=== PATIENT | female | born 1935 | race Caucasian/White ===

== ENCOUNTER 2019-10-18 13:01 | Outpatient (CLI) | payer MEDICARE, SELFPAY ==
--- NOTE | ~2019-10-18 | MM_ITS ---
EXAMINATION: MM screening taylor BI w artem HISTORY: Screening mammogram TECHNIQUE: Craniocaudal and mediolateral oblique 3-D tomosynthesis images were obtained and synthetic 2-D images were generated. CAD analysis was submitted and interpreted. COMPARISON: 09/14/2018, 08/24/2017, 08/24/2016 bilateral digital screening mammogram diagnostic right digital BREAST PARENCHYMAL COMPOSITION: There are scattered areas of fibroglandular density. FINDINGS: Status post right partial mastectomy for breast cancer; chronic architectural distortion is noted deep in the posterior outer mid to upper right breast. Scattered benign calcifications.. There is no evidence of suspicious mass, calcification, or architectural distortion to suggest malignancy in either breast. There has been no suspicious interval change. IMPRESSION: 1. No mammographic evidence of malignancy. 2. Recommend routine screening mammography in one year. BI-RADS Category 2: Benign finding(s). Reviewed, dictated and finalized at location A.
== END 2019-10-18 13:02 | disposition home or self-care (01) ==
LOC: ANHIMG 13:06
PROVIDERS: PCP Family Medicine; Visit Provider Family Medicine
DX: Z12.31 Encounter for screening mammogram for malignant neoplasm of breast (principal)
CPT/HCPCS: 77063; 77067

== ENCOUNTER → 2019-12-06 13:17 | Outpatient (CLI) | payer MEDICARE, SELFPAY ==
--- NOTE | ~2019-12-06 | DEXA_ITS ---
Bone Density Report Name: Monie Zamora Age: 84 Sex: Female Ethnicity: White Date of : 1935 Indication: postmenopausal; screening for osteoporosis; height loss; Referring Provider: ERASMO GLOVER Study: Bone densitometry was performed. Exam Date: December 06, 2019 Accession number: [id number] Bone Density: Region BMD T-score Z-score Classification AP Spine (L1-L4) 1.151 0.9 3.8 Normal Femoral Neck (Left) 0.665 -1.7 0.9 Osteopenia Total Hip (Left) 0.840 -0.8 1.5 Normal Femoral Neck (Right) 0.670 -1.6 0.9 Osteopenia Total Hip (Right) 0.775 -1.4 1.0 Osteopenia Total Hip Mean 0.808 -1.1 1.3 Osteopenia World Health Organization criteria for BMD impression classify patients as: Normal (T-score at or above -1.0), Osteopenia (T-score between -1.0 and -2.5), or Osteoporosis (T-score at or below -2.5). 10-year Fracture Risk(1): Major Osteoporotic Fracture 13% Hip Fracture 3.6% Reported Risk Factors: [place] (), Neck BMD=0.670, BMI=31.6 (1) FRAX(R) Version 3.08. Fracture probability calculated for an untreated patient. Fracture probability may be lower if the patient has received treatment. Clinical Information Provided by Patient: Has used the following medications: Vitamin D, Calcium, Anastrozole Patient maximum height was 66 Menopause Age: 56 No regular weight bearing exercise Does not regularly consume dairy products Drinks caffeinated beverages Onset of menses at age 13 Number of children 2 Impression: The patient has low bone mass, based on the Left Femoral Neck T-score. The patient has an estimated ten-year risk of hip fracture of 3.6% and an estimated ten-year risk of major fracture of 13%, based on the WHO FRAX algorithm. Discussion: BONE DENSITY IS LOW AT ONE OR MORE SKELETAL SITES. THE PATIENT'S BMD AND CLINICAL RISK FACTORS CONTRIBUTE TO THIS PATIENT'S INCREASED RISK OF FRACTURE. This patient's lowest T-score is low at one or more skeletal sites. It meets the World Health Organization's (WHO) criteria for ?low bone mass? (T-score between -1.0 and -2.5). The patient's 10-year risk of hip fracture as calculated by FRAX exceeds the threshold where pharmacological therapy is recommended by the National Osteoporosis Foundation (NOF). However, all treatment decisions require clinical judgment and consideration of individual patient factors, including patient preferences, comorbidities, previous drug use, risk factors not captured in the FRAX model (e.g., frailty, falls, vitamin D deficiency, increased bone turnover, interval significant decline in bone density) and possible under or overestimation of fracture risk by FRAX. The patient should follow a healthful lifestyle (good nutrition with adequate calcium and vitamin D, and appropriate weight-bearing exercise).
== END ==
PROVIDERS: PCP Family Medicine; Visit Provider Internal Medicine Medical Oncology
DX: D05.11 Intraductal carcinoma in situ of right breast (principal); Z79.811 Long term (current) use of aromatase inhibitors; M85.852 Other specified disorders of bone density and structure, left thigh; M85.851 Other specified disorders of bone density and structure, right thigh
CPT/HCPCS: 77080

== ENCOUNTER 2020-02-02 06:58 | Outpatient (NON) | payer MEDICARE, SELFPAY ==
[2020-02-03 00:37] LABS: SARS-CoV-2 RNA PCR Positive
== END 2020-02-02 06:59 ==
PROVIDERS: PCP Family Medicine; Visit Provider Family Medicine
DX: U07.1 COVID-19 (principal)
CPT/HCPCS: 87635; C9803; U0003

== ENCOUNTER 2020-02-07 14:49 | Inpatient (IN) | payer MEDICARE, SELFPAY ==
[2020-02-07] VITALS (17 sets, daily range): BP systolic 116–142; BP diastolic 52–94; PULSE 62–77; RESP 9–24; TEMP 36.8–38.6; O2SAT 90–99; BMI 28.4
--- NOTE | ~2020-02-07 | CT_ITS ---
EXAMINATION: CTA chest PE protocol EXAM DATE: 02/13/2020 21:10 INDICATION: COVID-19. Hypoxia. Elevated d-dimer. TECHNIQUE: Spiral CTA of the chest (pulmonary arteries) was performed with 100 cc Omnipaque 350 intr avenous contrast injection. Images were acquired during the pulmonary arterial phase. Coronal maxi mum intensity projection 3D-reconstructions were created by the technologist on dedicated workstation . Axial, coronal and sagittal reformatted images were reviewed. The dose-length product (DLP) for t his examination was 500.33 mGy-cm. The exposure was tailored according to patient size (auto mA exp osure control), and iterative reconstruction (ASIR) was used as additional dose reduction technique. There is no prior study for comparison. FINDINGS: There are several segmental pulmonary emboli identified, in the right upper lobe, right low er lobe, left upper lobe pulmonary arteries. Low clot burden. There is moderate amount of groundglass airspace disease with regions of confluence, probably acute lung injury from COVID-19 given history provided. Some reactive right hilar adenopathy. No thoracic aortic dissection. There are no pleural or pericardial effusions. Tracheobronchial tree is patent. There is no pneumothorax. There is mild coronary arterial calcification, arterial sclerosis. There is large hernia containing the stoma ch and pancreatic body and tail. There is thoracic spondylosis without osteoblastic or osteolytic le sions identified. IMPRESSION: 1. Several segmental pulmonary emboli bilaterally. Low clot burden. 2. Moderate amount of acute lung injury. 3. Intrathoracic stomach and pancreas. I discussed pulmonary emboli, acute lung injury with Dr. Manuel at 02/13/2020 21:25 CDT. Reviewed, dictated and finalized at location A. IMPRESSION: 1. Several segmental pulmonary emboli bilaterally. Low clot burden. 2. Moderate amount of acute lung injury. 3. Intrathoracic stomach and pancreas. I discussed pulmonary emboli, acute lung injury with Dr. Manuel at 02/13/2020 21:2 5 CDT.
--- NOTE | ~2020-02-07 | US_ITS ---
EXAMINATION: US venous doppler [facility] DATE: 02/14/2020 10:56 INDICATION: Lower limb swelling, hypoxia TECHNIQUE: Doran scale images without and with compression and Doppler images of the bilateral lower e xtremity veins were obtained. COMPARISON: None FINDINGS: The right common femoral vein, profunda femoral vein, femoral vein, popliteal vein, peroneal trunk, p osterior tibial veins, and greater saphenous vein are patent. The left common femoral vein, profunda femoral vein, femoral vein, popliteal vein, peroneal trunk, po sterior tibial veins, and greater saphenous vein are patent. A 4.6 cm Casper cyst is noted in the left popliteal fossa. IMPRESSION: 1. Patent bilateral lower extremity veins. No evidence of deep venous thrombosis. Reviewed, dictated and finalized at location B. IMPRESSION: 1. Patent bilateral lower extremity veins. No evidence of deep venous thrombosi s.
--- NOTE | ~2020-02-07 | XR_ITS ---
EXAMINATION: XR chest 1V portable DATE: 02/07/2020 15:18 INDICATION: Cough. COVID-19 pneumonia. TECHNIQUE: A single frontal view of the chest was obtained. COMPARISON: Chest 2 views 03/04/2018 FINDINGS: There are patchy airspace opacities involving all lung zones with sparing of the lung apice s. No pleural effusion or pneumothorax. The heart size is normal. There is a large hiatal hernia. Magdy cified bilateral hilar lymph nodes are consistent with old granulomatous disease. IMPRESSION: 1. Diffuse lung disease, consistent with COVID-19 pneumonia. 2. Large hiatal hernia. Reviewed, dictated and finalized at location A.
--- NOTE | 2020-02-07 14:56 | ECG_ITS ---
Measurements Intervals Gilbert Rate: 74 P: 30 OH: 177 QRS: -62 QRSD: 102 T: -29 QT: 392 QTc: 437 Interpretive Statements SINUS RHYTHM LEFT ANTERIOR FASCICULAR BLOCK POOR R WAVE PROGRESSION, ANTERIOR LEADS BORDERLINE T WAVE ABNORMALITY- ANT/INF LEADS BASELINE ARTIFACT- II, III, V1-V3, V6 ABNORMAL ECG Electronically Signed On 02-07-2020 16:35:25 CDT by Kevin Rodriguez D.O.
--- NOTE | 2020-02-07 15:31 | ED.SOB ---
HPI - SOB/Dyspnea General Chief Complaint: Shortness of Breath/Dyspnea Stated Complaint: DIFFICULTY BREATHING Source: RN notes reviewed History of Present Illness HPI Narrative: Patient presents emergency department from home for shortness of breath. Patient states she began to feel bad approximately 14 days ago. Patient was tested for COVID on 02/02/2020 with a positive test at that time. Patient states she began to feel progressively more short of breath and when EMS arrived a patient was satting 88% on room air currently on 4 L nasal cannula. Patient does have a fever states she is not taking medication today. Denies any chest pain abdominal pain nausea vomiting Related Data Home Medications Medication Instructions Recorded Confirmed anastrozole mg 02/07/20 Allergies Allergy/AdvReac Type Severity Reaction Status Date / Time nickel Allergy Mild itchiness Verified 01/10/20 14:02 Review of Systems Review of Systems: Narrative: Gen.: Reports fever denies chills Eyes: Denies eye pain or visual change ENT: Denies congestion Respiratory: Reports shortness of breath CV: Denies chest pain or palpitations GI: Denies abdominal pain nausea, emesis or diarrhea Musculoskeletal: Denies back pain or muscle pain Neuro: Denies numbness, tingling, weakness or focal weakness Skin: Denies rash Except as documented, all other systems reviewed and negative [facility] Past Medical History Medical History Breast cancer Elevated glucose Essential hypertension Surgical History Surgical History (Updated 10/02/19 @ 14:52 by Julieta Pérez MD) H/O lumpectomy Family History Family History (Updated 02/21/16 @ 15:50 by DOCTOR UNKNOWN) Mother Patient's mother is in good health, Onset Age: 23 Father Family history of emphysema, Onset Age: 84 Social History Social History Smoking status: Never smoker Second hand tobacco smoke exposure: No Alcohol intake: never Gender identity (if verbalized by the patient): Female Exam Narrative: Exam Narrative: APPEARANCE: No acute distress, nontoxic, resting in bed EYES: EOMI HEENT: Normocephalic, atraumatic, OMM RESPIRATORY: No respiratory distress C coarse breath sounds at bilateral lung vivas CARDIOVASCULAR: Regular rate and rhythm without murmurs rubs or gallops. ABDOMINAL: Soft, nontender, nondistended, no rebound or guarding MUSCULOSKELETAl: Moves all extremities. No clubbing, cyanosis or edema. NEURO: Awake and alert. Following commands, speech normal, no focal deficits SKIN:: Warm, dry. No rashes lesions or abrasions PSYCHIATRIC: Normal affect/mood, Course Course Emergency Course: Reviewed outside records showing positive cocaine test Discussed with FELI Ward for Dr. Lewis presentation work-up. Agrees with admission at this time. Request patient receive Decadron 6 mg IV x1 at this time. Request no antibiotics Discussed with patient and family results of workup and diagnosis. Discussed need for admission. Patient and family understand and agree to current treatment plan Vital Signs Vital signs: Vital Signs Temperature 101.5 F H 02/07/20 14:58 Pulse Rate 77 02/07/20 14:58 Respiratory Rate 24 H 02/07/20 14:58 Blood Pressure 133/69 02/07/20 14:58 Pulse Oximetry 90 02/07/20 14:58 Temperature 99.7 F H 02/07/20 15:52 Pulse Rate 75 02/07/20 16:30 Respiratory Rate 17 02/07/20 16:30 Blood Pressure 116/52 L 02/07/20 16:16 Pulse Oximetry 96 02/07/20 16:16 MDM - SOB/Dyspnea Lab Data Result diagrams: 02/07/20 15:27 02/07/20 15:27 Labs: Lab Results 02/07/20 02/07/20 02/07/20 Range/Units 15:27 15:27 15:27 WBC 6.7 (4.5-10.0) K/mm3 RBC 4.29 (4.2-5.4) M/mm3 Hgb 12.7 (12.0-15.0) g/dL Hct 35.9 L (37.0-47.0) % MCV 83.7 (80-100) fl MCH 29.6 (26-34) pg MCHC 35.4
[2020-02-07 15:45] LABS: Basophils Percent Auto 0.2 % (0.2-1.2); Hematocrit 35.9 % (37.0-47.0); Hemoglobin 12.7 g/dL (12.0-15.0); Immature Granulocyte Absolute 0.05 K/mm3 (0.00-0.031); Immature Granulocyte Percent A 0.8 % (0-0.5); Lymphocytes Absolute Auto 0.51 K/mm3 (0.9-3.2); Lymphocytes Percent Auto 7.7 % (18.3-44.2); Mean Corpuscular HGB Conc 35.4 g/dl (32-36); Mean Corpuscular Hemoglobin 29.6 pg (26-34); Mean Corpuscular Volume 83.7 fl (80-100); Mean Platelet Volume 11.3 fl (7.4-10.4); Monocytes Absolute Auto 0.4 K/mm3 (0.1-0.6); Monocytes Percent Auto 5.7 % (2.6-8.5); Neutrophils Absolute Auto 5.7 K/mm3 (1.3-6.7); Neutrophils Percent Auto 85.6 % (45.5-73.1); Platelet Count Result 178 k/mm3 (150-375); Red Blood Count 4.29 M/mm3 (4.2-5.4); Red Cell Distribution Width 12.8 % (11.5-14.5); White Blood Count 6.7 K/mm3 (4.5-10.0)
[2020-02-07 15:55] LABS: INR 1.2; Prothrombin Time 15.1 Seconds (11.1-14.7)
[2020-02-07 15:56] LABS: Alanine Aminotransferase 18 U/L (4-35); Albumin Level 3.6 g/dL (3.5-5.1); Alkaline Phosphatase 62 U/L (38-126); Anion Gap 11 mmol/L (8-16); Aspartate Amino Transferase 30 U/L (14-36); Bilirubin,Total 1.7 mg/dL (0.2-1.3); Blood Urea Nitrogen 16 mg/dL (7-17); Calcium 9.3 mg/dL (8.4-10.2); Carbon Dioxide 23 mmol/L (22-30); Chloride 98 mmol/L (98-107); Estimated CRCL calculation 53 ml/min; Estimated Glomerular Filt Rate > 60; Glucose 110 mg/dL (65-105); Partial Thromboplastin Time 30.9 SECONDS (22.3-36.8); Potassium 3.4 mmol/L (3.4-5.0); Sodium 132 mmol/L (137-145)
--- NOTE | 2020-02-07 18:06 | PC.NURSE ---
Continue to await bed assignment to accommodate pt and spouse, whom are both being admitted. Attempt to make the patient comfortable.
--- NOTE | 2020-02-07 19:24 | PC.NURSE ---
Report to PAM Ricks, to continue care. Bed assignment received, SBAR faxed to 3rd med surg.
--- NOTE | 2020-02-07 20:14 | ADMGEN ---
This patient, Monie Zamora, was admitted to [facility] Surg Room 329-01. Patient/family oriented to hospital policies and general routines including ID bracelet, bed and alarms, visiting hours, pain management, procedures, bathroom and other care routines, personal items, smoking policy, room service/diet, and visiting hours. Valuables list has been completed. Information on how to activate the Rapid Response Team has been discussed. Patient/Family are encouraged to report perceived risks to care and to ask questions if they do not understand what they are told or what they should do.
--- NOTE | 2020-02-07 21:42 | PM.IMHP ---
H&P: HPI History of Present Illness Date/Time: 02/07/20 21:42 Chief complaint: Acute respiratory failure, hypoxia, COVID Narrative: Monie Zamora is a 84 year old female Who has been feeling ill for at least 14 days. Her son-in-law was feeling ill and was tested for COVID here and was positive. She and her daughter also went to get tested soon after that and she tested positive on the 01 of February. The patient stated she has been coughing and feeling weak. She has no appetite. She has been running a fever. Her temperature is are usually 101-102. She has body aches. Loss of taste loss of smell. Patient has been short of breath. Her chest x-ray was read as diffuse lung disease consistent with COVID-19 pneumonia. Large hiatal hernia . Liver enzymes are within normal limits. Renal functions are within normal limits. Patient was placed on 4 L per nasal cannula. She is not typically on oxygen. Upon arrival the patient was saturating 88%. This was on room air. She has not been taking any medications today. She denies any vomiting or nausea. She attempted to eat a sandwich in was unable to eat. She does have a history of hypertension. Patient was given Tylenol IV in the emergency room and Decadron. Patient was placed in COVID isolation room. Date of service 02/07/2020 Review of Systems Review of Systems: All systems reviewed & are unremarkable except as noted in HPI and below Constitutional: Constitutional: Reports as per HPI and Reports no additional constitutional complaints Eyes: Eyes: Reports as per HPI and Reports no additional eye complaints ENT: Reports system reviewed and no additional complaints, except as documented and Reports Normal hearing present Cardiovascular: Cardiovascular: Reports no additional cardiovascular complaints Respiratory: Respiratory: Reports no additional respiratory complaints and Reports no additional respiratory complaints Gastrointestinal: Gastrointestinal: Reports as per HPI and Reports no additional gastrointestinal complaints Musculoskeletal: Musculoskeletal: Reports no additional musculoskeletal complaints Integumentary/Breasts: Skin/Breast: Reports system reviewed and no additional complaints, except as docu and Reports as per HPI Neurologic: Reports system reviewed and no additional complaints, except as documented, Reports as per HPI and Reports Normal hearing present Psychiatric: Psychiatric: Reports no additional psychiatric complaints and Reports as per HPI Endocrine: Endocrine: Reports no additional endocrine complaints Hematologic/Lymphatic: Hematologic/Lymphatic: Reports no additional hematologic/lymphatic complaints Allergic/Immunologic: Allergic/Immunologic: Reports no additional allergic/immunologic complaints [facility] Past Medical History Medical History (Updated 02/07/20 @ 21:48 by Sylvia Dey NP) Breast cancer status post lumpectomy no chemo but had radiation. Elevated glucose Essential hypertension Osteopenia Surgical History Surgical History (Updated 02/07/20 @ 21:46 by Sylvia Dey NP) Cataract extraction status bilaterally H/O lumpectomy Family History Family History Mother Appendicitis due to appendicitis and her 20 Father Family history of emphysema, Onset Age: 84 Social History Social History (Updated 02/07/20 @ 21:50 by Sylvia Dey NP) Social History: the patient worked in a [employer] in various jobs. She is and lives with her . Her was her durable power roughener but he is sick as well and she would like for her 2 children to be the durable power roughener for healthcare. We had a long discussion about living will. She is agreeable to CPR and short-term ventilator but does not want to live in a vegetative state On a ventilator. She has the 2 children. She said she tried smoking in the past when she was a kid but did not l
[2020-02-07 22:17] LABS: Alanine Aminotransferase 19 U/L (4-35)
[2020-02-07] MEDS: REMDESIVIR 200 MG/NS 250 ML 200 MG/250 ML BAG 250 MG IVPB (22:33)
[2020-02-08] VITALS (10 sets, daily range): BP systolic 108–147; BP diastolic 51–82; PULSE 62–72; RESP 18; TEMP 36.4–38.8; O2SAT 91–98
--- NOTE | 2020-02-08 04:40 | PHAR ---
Remdesevir - All criteria were met except for initiation of therapy should begin within 10 days or less of symptom onset In the note from Dr. Pérze the patient stated they started feeling bad 14 days ago. After discussion with Sylvia Dey, the exact date was not known and she decided to go ahead and initiate therapy because the patient met all other criteria.
[2020-02-08 06:48] LABS: Hematocrit 38.1 % (37.0-47.0); Hemoglobin 12.9 g/dL (12.0-15.0); Immature Granulocyte Absolute 0.02 K/mm3 (0.00-0.031); Immature Granulocyte Percent A 0.6 % (0-0.5); Lymphocytes Absolute Auto 0.35 K/mm3 (0.9-3.2); Lymphocytes Percent Auto 9.6 % (18.3-44.2); Mean Corpuscular HGB Conc 33.9 g/dl (32-36); Mean Corpuscular Hemoglobin 28.7 pg (26-34); Mean Corpuscular Volume 84.9 fl (80-100); Mean Platelet Volume 11.3 fl (7.4-10.4); Monocytes Absolute Auto 0.2 K/mm3 (0.1-0.6); Monocytes Percent Auto 6.1 % (2.6-8.5); Neutrophils Percent Auto 83.7 % (45.5-73.1); Platelet Count Result 188 k/mm3 (150-375); Red Blood Count 4.49 M/mm3 (4.2-5.4); Red Cell Distribution Width 12.9 % (11.5-14.5); White Blood Count 3.6 K/mm3 (4.5-10.0)
[2020-02-08 06:54] LABS: Alanine Aminotransferase 21 U/L (4-35)
[2020-02-08 07:01] LABS: Lactic Acid Reflex 1.3 mmol/L (0.7-2.1)
[2020-02-08 07:13] LABS: Alanine Aminotransferase 21 U/L (4-35); Albumin Level 3.5 g/dL (3.5-5.1); Alkaline Phosphatase 66 U/L (38-126); Anion Gap 7 mmol/L (8-16); Aspartate Amino Transferase 32 U/L (14-36); Bilirubin,Total 0.8 mg/dL (0.2-1.3); Blood Urea Nitrogen 19 mg/dL (7-17); Calcium 9.4 mg/dL (8.4-10.2); Carbon Dioxide 27 mmol/L (22-30); Chloride 101 mmol/L (98-107); Estimated CRCL calculation 52 ml/min; Estimated Glomerular Filt Rate > 60; Glucose 137 mg/dL (65-105); Magnesium 2.1 mg/dL (1.6-2.3); Sodium 135 mmol/L (137-145)
[2020-02-08 07:18] LABS: Potassium 3.5 mmol/L (3.4-5.0)
[2020-02-08 07:39] LABS: Thyroid Stimulating Hormone Reflex 0.886 uIU/mL (0.465-4.68)
[2020-02-08 07:40] LABS: CRP 23.9 mg/dL (<1.0)
[2020-02-08] MEDS: ANASTROZOLE (*CHEMO) 1 MG TABLET PO (09:43)
[2020-02-08] MEDS: LABETALOL HCL 100 MG TABLET PO ×2 (09:46→16:51)
--- NOTE | 2020-02-08 12:52 | PM.IMPN ---
Progress Note: A&P Assessment and Plan (1) COVID-19: Code(s): U07.1 - COVID-19 Status: Acute Assessment and Plan: Continue symptomatic relief. tylenol for fever, Decadron. Remdesivir and oxygen 3 L per nasal cannula. to keep sats above 90% CXR yesterday shows diffuse lung disease consistent with COVID-19 pneumonia. (2) Essential hypertension: Code(s): I10 - Essential (primary) hypertension Status: Acute Assessment and Plan: Labetalol BID . (3) Breast cancer: Code(s): C50.919 - Malignant neoplasm of unspecified site of unspecified female breast Status: Acute Assessment and Plan: Anastrozole. Subjective Date/time seen: 02/08/20 12:52 Interval history: 84 year old female who has been feeling ill for at least 14 days. Got tested last wednesday and was told she was positive on wednesday. Pt feels slightly better, less fever less body aches. Ongoing cough ongoing tiredness. Pt was able to eat all her breakfast today. PT has history of breast cancer and lumpectomy. Pt is still needing oxygen and is currently on 3 liters and sats are 91%. CXR yesterday shows diffuse lung disease consistent with COVID-19 pneumonia. Pt daughter is positive and son in law. Pts is admitted to the hospital as well with covid like symptoms. Explained to the patient that she should recover 14 days after day of testing which is @ next , worse situation if she is still having symptoms SOB, cough fever etc she may need retesting. Talked to pts daughter Moraima on the phone and discussed about her mom. Review of Systems Review of Systems: Narrative: Cough, sob tiredness body aches, low grade fever and sweats Exam Narrative: Exam Narrative: T37.2, HR 72,RR 18, sats 93 on 3 litersoxygen, BP 108/51 ITS Impressions Chest X-Ray 02/06 15:19 IMPRESSI ON: 1. Diffuse roberta g disease, consist ent with COVID-19 pneumonia. 2. Larg e hiatal hernia. 36.5 C 57 L 18 129/54 L 94 02/09/20 12:00 02/09/20 12:02/09/20 12:02/09/20 12:02/09/20 12:00 Const: Other: Mild distress on oxygen, tired appearing ongoing wet cough Speaking sentences No chest retractions Alert oriented x3 Anxious Objective Data Vital Signs Vital Signs: Vital Signs - 24 hr 02/07/20 14:58 02/07/20 15:46 02/07/20 15:48 Temperature 38.6 C H 37.6 C H Pulse Rate 77 70 Respiratory Rate 24 H 9 L Blood Pressure 133/69 132/66 Pulse Oximetry 90 97 02/07/20 15:50 02/07/20 15:52 02/07/20 16:04 Temperature 37.6 C H Pulse Rate 77 69 Respiratory Rate 14 Blood Pressure Pulse Oximetry 97 02/07/20 16:15 02/07/20 16:16 02/07/20 16:30 Temperature Pulse Rate 70 72 75 Respiratory Rate 14 12 17 Blood Pressure 116/52 L Pulse Oximetry 96 96 02/07/20 17:01 02/07/20 17:36 02/07/20 17:46 Temperature Pulse Rate 69 75 67 Respiratory Rate 12 21 H 15 Blood Pressure 126/56 L 130/65 Pulse Oximetry 97 95 97 02/07/20 18:16 02/07/20 19:00 02/07/20 19:02 Temperature Pulse Rate 71 65 66 Respiratory Rate 17 13 16 Blood Pressure 142/94 H 122/58 L Pulse Oximetry 95 98 97 02/07/20 19:16 02/07/20 21:38 02/08/20 00:00 Temperature 36.8 C 36.6 C Pulse Rate 62 72 62 Respiratory Rate 18 18 18 Blood Pressure 122/55 L 123/64 132/82 Pulse Oximetry 99 94 98 02/08/20 04:00 02/08/20 08:00 02/08/20 09:46 Temperature 36.4 C 36.8 C Pulse Rate 63 67 67 Respiratory Rate 18 18 Blood Pressure 147/62 H 131/70 Pulse Oximetry 94 91 Intake/Output Intake/Output: Intake & Output 02/05/20 02/06/20 02/07/20 02/08/20 23:59 23:59 23:59 23:59 Intake Total 350 Output Total 600 Balance 350 -600 Meds/Results Medications: Active Medications Generic Name Dose Route Start Last Admin
[2020-02-08] MEDS: REMDESIVIR 100 MG/NS 250 ML 100 MG/250 ML BAG 250 MG IVPB (21:55)
[2020-02-08] MEDS: ACETAMINOPHEN 325 MG TABLET 650 MG PO (22:10)
[2020-02-09] VITALS (8 sets, daily range): BP systolic 115–137; BP diastolic 54–96; PULSE 57–79; RESP 18–22; TEMP 36.4–36.7; O2SAT 90–95
[2020-02-09 06:20] LABS: Alanine Aminotransferase 33 U/L (4-35)
[2020-02-09] MEDS: ANASTROZOLE (*CHEMO) 1 MG TABLET PO (08:35)
[2020-02-09] MEDS: LABETALOL HCL 100 MG TABLET PO ×2 (08:35→17:06)
--- NOTE | 2020-02-09 09:31 | WPDCDIQUERY2 ---
CDI Query Clarification Request 1) - CXR yesterday shows diffuse lung disease consistent with COVID-19 pneumonia has been documented. - Coders cannot code a diagnosis from CXR findings. If you concur with CXR findings of Covid 19 pneumonia, please document as a diagnosis. 2) - Acute respiratory failure documented by EDP - O2 sats 88% on room air on arrival to ED - Pt was on O2 at 4L initially and now on 3L with O2 sats 90%. - There has been no further mention of acute respiratory failure Please clarify if acute respiratory failure has been ruled in or ruled out. <Linda Chris RN - Last Filed: 02/09/20 10:14> Provider Comments COVID PNEUMONIA <Latonia North MD - Last Filed: 02/09/20 11:16>
--- NOTE | 2020-02-09 13:55 | PM.IMPN ---
Progress Note: A&P Assessment and Plan (1) COVID-19: Code(s): U07.1 - COVID-19 Status: Acute Assessment and Plan: Continue symptomatic relief. tylenol for fever, Decadron. Remdesivir and oxygen 3 L per nasal cannula. to keep sats above 90% CXR yesterday shows diffuse lung disease consistent with COVID-19 pneumonia. Encourage to drink more and stay hydrated and rest more, until her symptoms pass. (2) Essential hypertension: Code(s): I10 - Essential (primary) hypertension Status: Acute Assessment and Plan: Labetalol BID. (3) Breast cancer: Code(s): C50.919 - Malignant neoplasm of unspecified site of unspecified female breast Status: Acute Assessment and Plan: Anastrozole. Subjective Date/time seen: 02/09/20 13:55 Interval history: 84 year old female who has been feeling ill for at least 14 days. Got tested last wednesday and was told she was positive on wednesday. Pt feels slightly better, less fever less body aches. Pt has history of breast cancer and lumpectomy. Pt is still needing oxygen and is currently on 3 liters and sats are 94%. CXR yesterday shows diffuse lung disease consistent with COVID-19 pneumonia. Explained pt is on remdesivir and steroids and she will feel better with time. Pt states she feels dizzy discussed about fluid intake she says she is eating well, having breakfast and applesauce. Pt had fever last night no fever today. Pt is worried about going home as she has a son at home with COPD. main compliants cough and tiredness Review of Systems Review of Systems: Narrative: Cough, tiredness, dizzy low grade fevers and sweats Exam Const: Other: Temp Pulse Resp BP Pulse Ox 36.5 C 57 L 18 129/54 L 94 02/09/20 12:00 02/09/20 12:00 02/09/20 12:02/09/20 12:00 02/09/20 12:00 No distress Wet cough No chest retractions Lungs clear Alert oriented x3 Less anxious Objective Data Vital Signs Vital Signs: Vital Signs - 24 hr 02/08/20 16:00 02/08/20 16:51 02/08/20 20:00 Temperature 37.1 C 38.8 C H Pulse Rate 69 72 66 Respiratory Rate 18 18 Blood Pressure 114/57 L 125/58 L Pulse Oximetry 95 92 02/08/20 22:10 02/08/20 23:10 02/09/20 00:00 Temperature 38.8 C H 36.5 C 36.4 C L Pulse Rate 78 Respiratory Rate 18 Blood Pressure 131/59 L Pulse Oximetry 92 02/09/20 04:00 02/09/20 08:00 02/09/20 08:35 Temperature 36.4 C 36.5 C Pulse Rate 79 71 79 Respiratory Rate 20 22 H Blood Pressure 137/67 125/96 H Pulse Oximetry 91 90 02/09/20 12:00 Temperature 36.5 C Pulse Rate 57 L Respiratory Rate 18 Blood Pressure 129/54 L Pulse Oximetry 94 Intake/Output Intake/Output: Intake & Output 02/06/20 02/07/20 02/08/20 02/09/20 23:59 23:59 23:59 23:59 Intake Total 350 1280 690 Output Total 1100 200 Balance 350 180 490 Meds/Results Medications: Active Medications Generic Name Dose Route Start Last Admin Trade Name Loboq PRN Reason Stop Dose Admin Acetaminophen 650 mg 02/08/20 22:05 02/08/20 22:10 Tylenol Tablet PO 650 mg Q6H PRN Administration Mild Pain (1-3) or Fever Anastrozole 1 mg 02/08/20 09:00 02/09/20 08:35 Arimidex PO 1 mg DAILY MALI Administration Dexamethasone Sodium Phosphate 6 mg 02/08/20 09:00 02/09/20 08:35 Decadron 10 Mg/Ml Inj IV PUSH 02/17/20 09:01 6 mg DAILY MALI Administration Remdesivir 100 mg in 250 mls @ 250 mls/hr 02/08/20 22:00 02/08/20 22:55 IVPB 02/11/20 22:01 Infused Q24H MALI Infusion Labetalol HCl 100 mg 02/08/20 09:00 02/09/20 08:35 Trandate PO 100 mg BID MALI Administration Radiology Results: ITS Impressions Chest X-Ray 02/07/20 15:19 IMPRESSION: 1. Diffuse lung disease, consistent with COVID-19 pneumonia. 2. Large hiatal hernia. Labs Labs: Laboratory R
[2020-02-09] MEDS: REMDESIVIR 100 MG/NS 250 ML 100 MG/250 ML BAG 250 MG IVPB (21:16)
[2020-02-10] VITALS (11 sets, daily range): BP systolic 127–156; BP diastolic 55–74; PULSE 58–75; RESP 16–22; TEMP 36–36.8; O2SAT 90–95
[2020-02-10 06:35] LABS: Alanine Aminotransferase 30 U/L (4-35)
[2020-02-10] MEDS: LABETALOL HCL 100 MG TABLET PO ×2 (08:50→17:45)
[2020-02-10] MEDS: ANASTROZOLE (*CHEMO) 1 MG TABLET PO (08:51)
--- NOTE | 2020-02-10 11:31 | PM.IMPN ---
Progress Note: A&P Assessment and Plan (1) COVID-19: Code(s): U07.1 - COVID-19 Status: Acute Assessment and Plan: Admitted 02/06 after 14 days of symptoms. Tested positive for SARS-CoV-2 on 02/01. Given length of illness and lack of progression, prognosis is good. Continue Remdesivir and Dexamethasone day 3. F/u lab. (2) Acute respiratory failure with hypoxia: Code(s): J96.01 - Acute respiratory failure with hypoxia Status: Acute Assessment and Plan: Due to COVID-19 Continue oxygen and wean as possible (3) Essential hypertension: Code(s): I10 - Essential (primary) hypertension Status: Acute Assessment and Plan: Labetalol BID . (4) Breast cancer: Qualifiers: Breast location: unspecified site of breast Estrogen receptor status: unspecified Patient sex: female Laterality: unspecified laterality Qualified Code(s): C50.919 - Malignant neoplasm of unspecified site of unspecified female breast Code(s): C50.919 - Malignant neoplasm of unspecified site of unspecified female breast Status: Acute Assessment and Plan: Anastrozole. Subjective Date/time seen: 02/10/20 11:31 Interval history: 84 y/o F feeling ill for at least 14 days prior to admission. Her son-in-law was feeling ill and was tested for COVID here and was positive. She and her daughter also went to get tested soon after that and she tested positive on the 01 of February. She had been coughing and feeling weak. She had no appetite. She had been running a fever, usually 101-102. She has body aches, loss of taste, and loss of smell. She had MATIAS with ADLs. Her chest x-ray was read as diffuse lung disease consistent with COVID-19 pneumonia. Upon admission to ED on 02/06, she was placed on 4 L per nasal cannula due to pulse ox showing sat of 88%. She is not typically on oxygen. 02/09: Taste and smell and appetite returning. Still with MATIAS simply talking. Denied pain. No n/v. Last PM about 4 days ago. Not uncomfortable yet. Review of Systems Review of Systems: All systems reviewed & are unremarkable except as noted in HPI and below Exam Narrative: Exam Narrative: HEENT: PERRL, sclerae nonicteric, pharyngeal mucosa pink and intact NECK: No JVD CHEST: Coarse BS throughout. Normal effort. HEART: NL S1/S2, regular, no murmur ABDOMEN: BS+, soft, nontender, no mass, no bruits EXTREMITIES: No cyanosis, edema, or clubbing NEUROLOGIC: CN intact and symmetric to inspection. MUSCULOSKELETAL: Tone and strength symmetric. PSYCH: Alert. Oriented to person, place, and time. Objective Data Vital Signs Vital Signs: Vital Signs - 24 hr 02/09/20 12:00 02/09/20 16:00 02/09/20 17:06 Temperature 97.7 F 97.9 F Pulse Rate 57 L 58 L 66 Respiratory Rate 18 20 Blood Pressure 129/54 L 125/57 L Pulse Oximetry 94 95 02/09/20 20:00 02/10/20 00:39 02/10/20 05:00 Temperature 98.0 F 98.2 F 97.8 F Pulse Rate 72 60 60 Respiratory Rate 18 18 18 Blood Pressure 115/63 143/58 H 127/63 Pulse Oximetry 91 95 92 02/10/20 08:00 02/10/20 08:50 02/10/20 09:14 Temperature 97.7 F 97.7 F Pulse Rate 58 L 58 L 58 L Respiratory Rate 16 16 Blood Pressure 133/55 L 133/55 L Pulse Oximetry 92 92 02/10/20 10:33 Temperature Pulse Rate Respiratory Rate Blood Pressure Pulse Oximetry 92 Intake/Output Intake/Output: Intake & Output 02/07/20 02/08/20 02/09/20 02/10/20 23:59 23:59 23:59 23:59 Intake Total 350 1280 1970 540 Output Total 1100 700 350 Balance 169 091 2988 190 Meds/Results Medications: Active Medications Generic Name Dose Route Start Last Admin Trade Name Freq PRN Reason Stop Dose Admin Acetaminophen 650 mg 02/08/20 22:05 02/08/20 22:10 Tylenol Tablet PO 650 mg Q6H PRN Administration Mild Pain (1-3) or Fever Anastrozole 1 mg 02/08/20 09:00 02/10/20 08:51 Arimidex PO 1 mg DAILY MALI Administration Dexamethasone Sodium Phosphate 6 mg
--- NOTE | 2020-02-10 15:52 | PC.NURSE ---
When getting 1200 vitals, This pt need to use restroom. On returning to bed she had trouble catching her breath. Her Spo2 on 3L at first was 87. Slowly she returned to [address] I [address] Dr[address] Clemens ,new orders received. 3LNC while at rest and 5L NC when up with activity.
[2020-02-10] MEDS: REMDESIVIR 100 MG/NS 250 ML 100 MG/250 ML BAG 250 MG IVPB (22:06)
[2020-02-11] VITALS (10 sets, daily range): BP systolic 96–149; BP diastolic 46–66; PULSE 62–80; RESP 18–24; TEMP 36.4–37.1; O2SAT 87–95
[2020-02-11 06:53] LABS: Basophils Percent Auto 0.1 % (0.2-1.2); Eosinophils Percent Auto 0.3 % (0-4.4); Hematocrit 35.7 % (37.0-47.0); Immature Granulocyte Absolute 0.08 K/mm3 (0.00-0.031); Immature Granulocyte Percent A 1.1 % (0-0.5); Lymphocytes Absolute Auto 0.59 K/mm3 (0.9-3.2); Lymphocytes Percent Auto 8.5 % (18.3-44.2); Mean Corpuscular HGB Conc 33.6 g/dl (32-36); Mean Corpuscular Volume 86.2 fl (80-100); Mean Platelet Volume 10.7 fl (7.4-10.4); Monocytes Absolute Auto 0.4 K/mm3 (0.1-0.6); Monocytes Percent Auto 5.3 % (2.6-8.5); Neutrophils Absolute Auto 5.9 K/mm3 (1.3-6.7); Neutrophils Percent Auto 84.7 % (45.5-73.1); Platelet Count Result 157 k/mm3 (150-375); Red Blood Count 4.14 M/mm3 (4.2-5.4); Red Cell Distribution Width 13.2 % (11.5-14.5)
[2020-02-11 07:05] LABS: Alanine Aminotransferase 27 U/L (4-35); Albumin Level 2.8 g/dL (3.5-5.1); Alkaline Phosphatase 55 U/L (38-126); Anion Gap 6 mmol/L (8-16); Aspartate Amino Transferase 25 U/L (14-36); Bilirubin,Total 0.5 mg/dL (0.2-1.3); Blood Urea Nitrogen 22 mg/dL (7-17); CRP 7.5 mg/dL (<1.0); Calcium 8.9 mg/dL (8.4-10.2); Carbon Dioxide 28 mmol/L (22-30); Chloride 103 mmol/L (98-107); Estimated CRCL calculation 52 ml/min; Estimated Glomerular Filt Rate > 60; Glucose 98 mg/dL (65-105); Lactate Dehydrogenase 537 U/L (313-618); Potassium 3.3 mmol/L (3.4-5.0); Sodium 137 mmol/L (137-145)
[2020-02-11 07:54] LABS: D Dimer 18.31 ug/mL (<0.48)
[2020-02-11] MEDS: POTASSIUM CHLORIDE 20 MEQ TABLET 40 MEQ PO ×2 (09:23→13:02)
[2020-02-11] MEDS: ANASTROZOLE (*CHEMO) 1 MG TABLET PO (09:23)
[2020-02-11] MEDS: LABETALOL HCL 100 MG TABLET PO ×2 (09:32→17:30)
--- NOTE | 2020-02-11 10:18 | PC.NURSE ---
Called Dr. Clemens on D-dimer result. He said he is aware. No new orders.
--- NOTE | 2020-02-11 11:25 | PM.IMPN ---
Progress Note: A&P Assessment and Plan (1) COVID-19: Code(s): U07.1 - COVID-19 Status: Acute Assessment and Plan: Admitted 02/06 after 14 days of symptoms. Tested positive for SARS-CoV-2 on 02/01. 02/10 CRP down from 23.9 to 7.5, LDH 537, Ferritin 327, D-Dimer 18.31. Given length of illness and lack of progression, prognosis is good. Continue Remdesivir and Dexamethasone day 4. F/u lab. (2) Acute respiratory failure with hypoxia: Code(s): J96.01 - Acute respiratory failure with hypoxia Status: Acute Assessment and Plan: Due to COVID-19 Continue oxygen and wean as possible (3) Essential hypertension: Code(s): I10 - Essential (primary) hypertension Status: Acute Assessment and Plan: Labetalol BID . (4) Breast cancer: Qualifiers: Breast location: unspecified site of breast Estrogen receptor status: unspecified Laterality: unspecified laterality Patient sex: female Qualified Code(s): C50.919 - Malignant neoplasm of unspecified site of unspecified female breast Code(s): C50.919 - Malignant neoplasm of unspecified site of unspecified female breast Status: Acute Assessment and Plan: Anastrozole. (5) Hypokalemia: Code(s): E87.6 - Hypokalemia Status: Acute Assessment and Plan: PO KCL F/u lab Subjective Date/time seen: 02/11/20 11:25 Interval history: 84 y/o F feeling ill for at least 14 days prior to admission. Her son-in-law was feeling ill and was tested for COVID here and was positive. She and her daughter also went to get tested soon after that and she tested positive on the 01 of February. She had been coughing and feeling weak. She had no appetite. She had been running a fever, usually 101-102. She has body aches, loss of taste, and loss of smell. She had MATIAS with ADLs. Her chest x-ray was read as diffuse lung disease consistent with COVID-19 pneumonia. Upon admission to ED on 02/06, she was placed on 4 L per nasal cannula due to pulse ox showing sat of 88%. She is not typically on oxygen. 02/10: Taste and smell and appetite returning, but still only fair to poor. Still with MATIAS simply talking, severe with walking to BR. Denied pain. No n/v. Last BM 02/09. Review of Systems Review of Systems: All systems reviewed & are unremarkable except as noted in HPI and below Exam Narrative: Exam Narrative: HEENT: PERRL, sclerae nonicteric, pharyngeal mucosa pink and intact NECK: No JVD CHEST: Coarse BS throughout. Normal effort. HEART: NL S1/S2, regular, no murmur ABDOMEN: BS+, soft, nontender, no mass, no bruits EXTREMITIES: No cyanosis, edema, or clubbing NEUROLOGIC: CN intact and symmetric to inspection. MUSCULOSKELETAL: Tone and strength symmetric. PSYCH: Alert. Oriented to person, place, and time. Objective Data Vital Signs Vital Signs: Vital Signs - 24 hr 02/10/20 13:44 02/10/20 16:00 02/10/20 17:45 Temperature 97.5 F L 97.4 F L Pulse Rate 75 68 60 Respiratory Rate 22 H 20 Blood Pressure 131/65 156/70 H Pulse Oximetry 90 95 02/10/20 20:00 02/10/20 21:27 02/11/20 00:00 Temperature 96.8 F L 98 F Pulse Rate 65 67 65 Respiratory Rate 22 H 20 20 Blood Pressure 156/74 H 117/46 L Pulse Oximetry 93 93 93 02/11/20 04:00 02/11/20 08:00 02/11/20 09:32 Temperature 97.6 F 97.6 F Pulse Rate 70 65 65 Respiratory Rate 18 22 H Blood Pressure 149/66 H 138/56 L Pulse Oximetry 95 91 Intake/Output Intake/Output: Intake & Output 02/08/20 02/09/20 02/10/20 02/11/20 23:59 23:59 23:59 23:59 Intake Total 1280 1970 1490 400 Output Total 1100 700 350 Balance 180 1270 1140 400 Meds/Results Medications: Active Medications Generic Name Dose Route Start Last Admin Trade Name Freq PRN Reason Stop Dose Admin Acetaminophen 650 mg 02/08/20 22:05 02/08/20 22:10 Tylenol Tablet PO 650 mg Q6H PRN Administration Mild Pain (1-3) or Fever Anastrozole 1 mg 02/08/20 09:00
[2020-02-11] MEDS: REMDESIVIR 100 MG/NS 250 ML 100 MG/250 ML BAG 250 MG IVPB (21:03)
[2020-02-12] VITALS (12 sets, daily range): BP systolic 120–154; BP diastolic 56–79; PULSE 56–68; RESP 18–24; TEMP 36.6–37.7; O2SAT 90–95
[2020-02-12 06:31] LABS: Hematocrit 35.7 % (37.0-47.0); Hemoglobin 11.8 g/dL (12.0-15.0); Immature Platelet Fraction Pct 3.9 % (0.9-11.2); Mean Corpuscular HGB Conc 33.1 g/dl (32-36); Mean Corpuscular Hemoglobin 28.9 pg (26-34); Mean Corpuscular Volume 87.5 fl (80-100); Mean Platelet Volume 10.9 fl (7.4-10.4); Platelet Count Result 154 k/mm3 (150-375); Red Blood Count 4.08 M/mm3 (4.2-5.4); Red Cell Distribution Width 13.5 % (11.5-14.5); White Blood Count 7.2 K/mm3 (4.5-10.0)
[2020-02-12 06:48] LABS: Lactate Dehydrogenase 547 U/L (313-618)
[2020-02-12 06:57] LABS: Alanine Aminotransferase 23 U/L (4-35); Albumin Level 2.7 g/dL (3.5-5.1); Alkaline Phosphatase 54 U/L (38-126); Anion Gap 4 mmol/L (8-16); Aspartate Amino Transferase 21 U/L (14-36); Bilirubin,Total 0.5 mg/dL (0.2-1.3); Blood Urea Nitrogen 21 mg/dL (7-17); Carbon Dioxide 27 mmol/L (22-30); Chloride 105 mmol/L (98-107); Estimated CRCL calculation 60 ml/min; Estimated Glomerular Filt Rate > 60; Glucose 116 mg/dL (65-105); Sodium 136 mmol/L (137-145)
[2020-02-12 07:07] LABS: D Dimer > 20.00 ug/mL (<0.48)
[2020-02-12 07:10] LABS: CRP 12.5 mg/dL (<1.0)
[2020-02-12] MEDS: LABETALOL HCL 100 MG TABLET PO ×2 (08:27→17:29)
[2020-02-12] MEDS: ANASTROZOLE (*CHEMO) 1 MG TABLET PO (08:27)
[2020-02-12] MEDS: ENOXAPARIN 40 MG/0.4 ML SYRINGE SUB-Q (09:36)
[2020-02-12] MEDS: guaiFENesin 12 HR 600 MG TABCR PO (09:36)
--- NOTE | 2020-02-12 14:17 | PM.IMPN ---
Progress Note: A&P Assessment and Plan (1) COVID-19: Code(s): U07.1 - COVID-19 Status: Acute Assessment and Plan: Admitted 02/06 after 14 days of symptoms. Tested positive for SARS-CoV-2 on 02/01. continues to complain of cough and MATIAS. she has consistently required 3 L O2 per NC. Continue isolation precautions continue dexamethasone. Day 5 of therapy today. She received 4 doses of rremdesivir which was subsequently discontinued. supplemental O2 as needed with goal saturation 92% or above. Wean to goal. Supportive care. Acetaminophen as needed for fever, mucolytic therapy, and bronchodilators. Trend acute phase reactants. D-dimer is elevated, CRP has increased, ferritin improved. (2) Acute respiratory failure with hypoxia: Code(s): J96.01 - Acute respiratory failure with hypoxia Status: Acute Assessment and Plan: Due to COVID-19. She has had stable oxygen requirements at 3 L. continue supplemental oxygen as above and wean to goal. (3) Essential hypertension: Code(s): I10 - Essential (primary) hypertension Status: Acute Assessment and Plan: Blood pressure reviewed today and is generally well controlled 140-150 systolic. Continue labetalol b.i.d. Monitor blood pressures daily. (4) Hypokalemia: Code(s): E87.6 - Hypokalemia Status: Acute Assessment and Plan: Potassium very mildly low yesterday at 3.3. She received p.o. KCl. Potassium improved today at 4.0. Monitor potassium and replace as needed (5) Breast cancer: Qualifiers: Breast location: unspecified site of breast Estrogen receptor status: unspecified Patient sex: female Laterality: unspecified laterality Qualified Code(s): C50.919 - Malignant neoplasm of unspecified site of unspecified female breast Code(s): C50.919 - Malignant neoplasm of unspecified site of unspecified female breast Status: Acute Assessment and Plan: Patient had a lumpectomy of right breast 10 years oago and has been maintained on daily anastrozole therapy since that time. Continue Anastrozole. Subjective Date/time seen: 02/12/20 14:17 Interval history: Date of service: 02/12/2020 Ms. Zamora is an 84 year old female with a history of HTN and breast cancer who is seen in follow-up for COVID-19 pneumonia. Patient reports that she is feeling about the same today. She still feels quite short of breath, especially with any movement. She has a slightly productive cough and feels that her cough is loosening up a bit. She denies chest pain, palpitations, orthopnea, or PND. She has a mild headache. She still feels quite weak and reports that she gets occasionally lightheaded when she has a particularly severe episode of coughing. She has been fatigued. She reports a fair appetite. She denies abdominal pain, nausea, vomiting, fever, chills, or body aches. Review of Systems Review of Systems: Narrative: A 12 point review of systems was reviewed with pertinent positives and negatives as per HPI. Exam Narrative: Exam Narrative: Ms. Zamora is a well nourished 84 year old female who is lying supine in bed. she appears comfortable and is in no acute respiratory distress. HR 68, BP 154/79, RR 20, T 97.8?, 94% on 3 L Neuro: awake, alert and oriented x4, speech clear, no focal neuro deficits noted HEENMT: normocephalic, atraumatic, EOMI, sclerae anicteric, moist oral mucosa, tongue midline, nares patent Neck: supple, no lymphadenopathy Respiratory: clear to auscultation bilaterally, nonlabored breathing, wet cough noted on exam Cardio: regular rate, regular rhythm with S1-S2 Abdomen: nondistended, normoactive bowel sounds, soft, nontender to palpation Extremities: no edema, erythema, cyanosis, clubbing, or tenderness to palpation, DP pulses 2+ bilaterally Skin: no rashes or lesions, warm and dry Psych: appropriate mood and affec
[2020-02-12] MEDS: ACETAMINOPHEN 325 MG TABLET 650 MG PO (17:30)
[2020-02-13] VITALS (13 sets, daily range): BP systolic 131–160; BP diastolic 59–74; PULSE 59–68; RESP 16–20; TEMP 36.4–39.1; O2SAT 88–94
[2020-02-13 06:22] LABS: Hematocrit 34.5 % (37.0-47.0); Hemoglobin 11.6 g/dL (12.0-15.0); Mean Corpuscular HGB Conc 33.6 g/dl (32-36); Mean Corpuscular Hemoglobin 29.1 pg (26-34); Mean Corpuscular Volume 86.5 fl (80-100); Mean Platelet Volume 10.8 fl (7.4-10.4); Platelet Count Result 161 k/mm3 (150-375); Red Blood Count 3.99 M/mm3 (4.2-5.4); Red Cell Distribution Width 13.5 % (11.5-14.5); White Blood Count 7.2 K/mm3 (4.5-10.0)
[2020-02-13 06:47] LABS: Alanine Aminotransferase 22 U/L (4-35); Albumin Level 2.7 g/dL (3.5-5.1); Alkaline Phosphatase 50 U/L (38-126); Anion Gap 4 mmol/L (8-16); Aspartate Amino Transferase 18 U/L (14-36); Bilirubin,Total 0.6 mg/dL (0.2-1.3); Blood Urea Nitrogen 22 mg/dL (7-17); Calcium 9.1 mg/dL (8.4-10.2); Carbon Dioxide 27 mmol/L (22-30); Chloride 105 mmol/L (98-107); Estimated CRCL calculation 60 ml/min; Estimated Glomerular Filt Rate > 60; Glucose 107 mg/dL (65-105); Lactate Dehydrogenase 508 U/L (313-618); Magnesium 2.1 mg/dL (1.6-2.3); Potassium 4.3 mmol/L (3.4-5.0); Sodium 136 mmol/L (137-145)
[2020-02-13] MEDS: LABETALOL HCL 100 MG TABLET PO ×2 (07:43→17:33)
[2020-02-13] MEDS: ANASTROZOLE (*CHEMO) 1 MG TABLET PO (07:46)
[2020-02-13] MEDS: ENOXAPARIN 40 MG/0.4 ML SYRINGE SUB-Q ×2 (07:46→19:59)
[2020-02-13] MEDS: guaiFENesin 12 HR 600 MG TABCR PO (08:59)
--- NOTE | 2020-02-13 12:38 | PM.IMPN ---
Progress Note: A&P Assessment and Plan (1) COVID-19: Code(s): U07.1 - COVID-19 Status: Acute Assessment and Plan: Admitted 02/06 after 14 days of symptoms. Tested positive for SARS-CoV-2 on 02/01. Her oxygen requirements have increased to 4L at rest and 6L with activity. Continue dexamethasone (day 11/14 - initiated 02/07/20). She completed 5 doses of remdesivir. Continue isolation precautions. Continue supplemental oxygen as needed to achieve a pulse oxygen saturation of 92%. Wean to goal. Continue acetaminophen as needed for fever, mucolytic therapy, and bronchodilator. Continue to trend acute phase reactants. D-dimer is elevated. Order CTA to r/o PE. Increase lovenox to 40mg SQ BID for DVT ppx. CRP and ferritin have improved. LDH is WNL. (2) Acute respiratory failure with hypoxia: Code(s): J96.01 - Acute respiratory failure with hypoxia Status: Acute Assessment and Plan: Secondary to COVID-19. Oxygen requirements increased to 4L with rest and 6L with activity. Check CTA chest given elevated D-dimer. Continue treatment of COVID-19 as above. (3) Essential hypertension: Code(s): I10 - Essential (primary) hypertension Status: Acute Assessment and Plan: Blood pressures were reviewed. Most recent BP was 134/59. She has had a few elevated readings earlier today and last night. Continue hydrochlorothiazide and labetalol. Continue to monitor. (4) Breast cancer: Qualifiers: Breast location: unspecified site of breast Estrogen receptor status: unspecified Patient sex: female Laterality: unspecified laterality Qualified Code(s): C50.919 - Malignant neoplasm of unspecified site of unspecified female breast Code(s): C50.919 - Malignant neoplasm of unspecified site of unspecified female breast Status: Acute Assessment and Plan: Patient had a lumpectomy of right breast 10 years oago and has been maintained on daily anastrozole therapy since that time. Plan to hold Anastrozole given elevated D-Dimer and COVID-19 infection. (5) Hypokalemia: Code(s): E87.6 - Hypokalemia Status: Acute Assessment and Plan: Resolved. Potassium is 4.3 today. Continue to monitor. Subjective Date/time seen: 02/13/20 12:38 Interval history: Mrs. Zamora is an 84 y.o. female with PMH significant for hypertension and breast cancer on anastrozole who is seen in follow-up for COVID-19 pneumonia. She reports no significant change in her symptoms. She is still having dyspnea with exertion. She reports productive cough and notes an easier time clearing phlegm since starting mucinex. Her phlegm is a light yellow/green color. She reports that deep breaths cause her to cough. She denies chest pain, pleuritic pain, and hemoptysis. She denies lower extremity edema and calf pain. She reports mild decrease in her smell and taste. She did not sleep well overnight. She reports that her bowel movements are regular and she denies nausea, vomiting, abdominal pain, diarrhea, and constipation. Review of Systems Review of Systems: All systems reviewed & are unremarkable except as noted in HPI and below Exam Narrative: Exam Narrative: General: Pleasant, well-developed, well-nourished 84 y.o. elderly female lying in the semi-recumbent position in bed in no acute respiratory distress. HEENT: Normocephalic and atraumatic. Sclerae anicteric. Conjunctivae without injection or exudate. EOMI. Moist oral mucosa. Neck: Supple. Cardiac: Regular rate and rhythm. S1 and S2 normal. Lungs: On 4 liters per nasal cannula at rest. Respirations non-labored and she is speaking in full sentences without difficulty. Lungs with fine rales at the bases, decreased breath sounds with low-yield isolation stethoscope. Productive cough noted with light green/yellow phlegm on tissue. Abdomen: Normoactive bowel sounds. Protuberant abdomen which is soft, non-distended, and non-tender. No rebound
[2020-02-13] MEDS: ACETAMINOPHEN 325 MG TABLET 650 MG PO (13:08)
[2020-02-13] MEDS: ALBUTEROL SULFATE (*SP) AEROSOL 1 PUFF 2 PUFF INHALATION (15:17)
[2020-02-13] MEDS: ENOXAPARIN 60 MG/0.6 ML SYRINGE 38 MG SUB-Q (22:35)
[2020-02-14] VITALS (9 sets, daily range): BP systolic 124–153; BP diastolic 62–91; PULSE 59–79; RESP 18–20; TEMP 36.4–36.7; O2SAT 90–95
[2020-02-14 05:57] LABS: Hematocrit 34.9 % (37.0-47.0); Hemoglobin 11.6 g/dL (12.0-15.0); Mean Corpuscular HGB Conc 33.2 g/dl (32-36); Mean Corpuscular Hemoglobin 28.9 pg (26-34); Mean Platelet Volume 10.4 fl (7.4-10.4); Platelet Count Result 186 k/mm3 (150-375); Red Blood Count 4.01 M/mm3 (4.2-5.4); Red Cell Distribution Width 13.6 % (11.5-14.5); White Blood Count 6.2 K/mm3 (4.5-10.0)
[2020-02-14 06:15] LABS: Alanine Aminotransferase 20 U/L (4-35); Albumin Level 2.6 g/dL (3.5-5.1); Alkaline Phosphatase 46 U/L (38-126); Anion Gap 2 mmol/L (8-16); Aspartate Amino Transferase 19 U/L (14-36); Bilirubin,Total 0.6 mg/dL (0.2-1.3); Blood Urea Nitrogen 25 mg/dL (7-17); CRP 5.6 mg/dL (<1.0); Carbon Dioxide 27 mmol/L (22-30); Chloride 104 mmol/L (98-107); Estimated CRCL calculation 52 ml/min; Estimated Glomerular Filt Rate > 60; Glucose 94 mg/dL (65-105); Lactate Dehydrogenase 539 U/L (313-618); Potassium 4.5 mmol/L (3.4-5.0); Sodium 133 mmol/L (137-145)
[2020-02-14] MEDS: ENOXAPARIN 80 MG/0.8 ML SYRINGE 78 MG SUB-Q ×2 (08:15→20:32)
[2020-02-14] MEDS: LABETALOL HCL 100 MG TABLET PO ×2 (08:16→16:22)
--- NOTE | 2020-02-14 13:09 | PCDIET ---
Weekly nutritional screen. Patient is tolerating current diet with adequate intake, 75-100% of meals. No weight loss reported. No nutritional needs at this time.
--- NOTE | 2020-02-14 14:53 | PM.IMPN ---
Progress Note: A&P Assessment and Plan (1) COVID-19: Code(s): U07.1 - COVID-19 Status: Acute Assessment and Plan: Admitted 02/06 after 14 days of symptoms. Tested positive for SARS-CoV-2 on 02/01. Her oxygen requirements are unchanged today at 4L at rest and 6L with activity. Continue dexamethasone (day 12/14 - initiated 02/07/20). She completed 5 doses of remdesivir. Continue isolation precautions. Continue supplemental oxygen as needed to achieve a pulse oxygen saturation of 92%. Wean to goal. Continue acetaminophen as needed for fever, mucolytic therapy, and bronchodilator. Continue to trend acute phase reactants. She did develop a fever yesterday (Tmax 102.3F). Sputum culture, urinary antigens, and repeat blood cultures were ordered and are pending. Await results. Continue to monitor acute phase reactants. Ferritin is mildly increased, CRP continues to improve, and LFTs are normal. (2) Pulmonary embolism: Code(s): I26.99 - Other pulmonary embolism without acute cor pulmonale Status: Acute Assessment and Plan: Chest CTA demonstrated several segmental pulmonary embolism bilaterally with low clot burden. Venous doppler US was negative for DVT. She is on therapeutic lovenox. Place a care coordination consult to determine which DOAC will be covered for her since she will need treatment for at least 3 months. Transition lovenox to DOAC once we know which will be covered. Continue supplemental oxygen as needed to maintain a pulse oxygen saturation of 92%. (3) Acute respiratory failure with hypoxia: Code(s): J96.01 - Acute respiratory failure with hypoxia Status: Acute Assessment and Plan: Secondary to COVID-19. The pt was also found to have acute pulmonary embolism on PE and is on anticoagulation. Oxygen requirement are stable at 4L with rest and 6L with activity. Continue treatment of COVID-19 and pulmonary embolism as above. (4) Essential hypertension: Code(s): I10 - Essential (primary) hypertension Status: Acute Assessment and Plan: Blood pressures were reviewed and are reasonably controlled. Continue hydrochlorothiazide and labetalol. Continue to monitor. (5) Breast cancer: Qualifiers: Breast location: unspecified site of breast Estrogen receptor status: unspecified Patient sex: female Laterality: unspecified laterality Qualified Code(s): C50.919 - Malignant neoplasm of unspecified site of unspecified female breast Code(s): C50.919 - Malignant neoplasm of unspecified site of unspecified female breast Status: Acute Assessment and Plan: Patient had a lumpectomy of the right breast 10 years ago and has been maintained on daily anastrozole therapy since that time. Hold Anastrozole given COVID-19 infection and acute pulmonary embolism. (6) Hypokalemia: Code(s): E87.6 - Hypokalemia Status: Acute Assessment and Plan: Resolved. Potassium is 4.5 today. Continue to monitor. Time Spent With Patient Time with patient: 15 - 25 minutes Subjective Date/time seen: 02/14/20 14:53 Interval history: Mrs. Zamora is an 84 y.o. female with PMH significant for hypertension and breast cancer on anastrozole who is seen in follow-up for COVID-19 pneumonia. She feels about the same today. She notes chronic fatigue since she developed COVID. Her appetite is fair. She reports dyspnea with exertion but is comfortable at rest and notes no increased work of breathing. She denies chest pain. She denies lower extremity pain and swelling. She denies headaches. She reports a regular, yellow, formed bowel movement today. She has no urinary complaints and denies dysuria and hematuria. She continues to note that taking deep breaths will stimulate her cough reflex. Review of Systems Review of Systems: All systems reviewed & are unremarkable except as noted in HPI and below Exam Narrative: Exam Narrative: Genera
[2020-02-15] VITALS (7 sets, daily range): BP systolic 117–152; BP diastolic 60–74; PULSE 52–61; RESP 18–20; TEMP 36.4–36.8; O2SAT 93–97
[2020-02-15 06:14] LABS: Hematocrit 36.3 % (37.0-47.0); Mean Corpuscular HGB Conc 33.1 g/dl (32-36); Mean Corpuscular Volume 87.7 fl (80-100); Mean Platelet Volume 10.3 fl (7.4-10.4); Platelet Count Result 203 k/mm3 (150-375); Red Blood Count 4.14 M/mm3 (4.2-5.4); Red Cell Distribution Width 13.7 % (11.5-14.5); White Blood Count 6.4 K/mm3 (4.5-10.0)
[2020-02-15 06:31] LABS: Alanine Aminotransferase 19 U/L (4-35); Albumin Level 2.7 g/dL (3.5-5.1); Alkaline Phosphatase 48 U/L (38-126); Anion Gap 3 mmol/L (8-16); Aspartate Amino Transferase 18 U/L (14-36); Bilirubin,Total 0.6 mg/dL (0.2-1.3); Blood Urea Nitrogen 23 mg/dL (7-17); CRP 3.4 mg/dL (<1.0); Carbon Dioxide 27 mmol/L (22-30); Chloride 104 mmol/L (98-107); Estimated CRCL calculation 52 ml/min; Estimated Glomerular Filt Rate > 60; Glucose 98 mg/dL (65-105); Potassium 4.4 mmol/L (3.4-5.0); Sodium 134 mmol/L (137-145)
[2020-02-15] MEDS: LABETALOL HCL 100 MG TABLET PO ×2 (08:31→18:20)
[2020-02-15] MEDS: ENOXAPARIN 80 MG/0.8 ML SYRINGE 78 MG SUB-Q (08:31)
[2020-02-15] MEDS: hydroCHLOROthiazide 25 MG TABLET PO (12:11)
--- NOTE | 2020-02-15 15:06 | PM.IMPN ---
Progress Note: A&P Assessment and Plan (1) COVID-19: Code(s): U07.1 - COVID-19 Status: Acute Assessment and Plan: Admitted 02/06 after 14 days of symptoms. Tested positive for SARS-CoV-2 on 02/01. Her oxygen requirements are unchanged today at 4L at rest and 6L with activity. Continue dexamethasone (day 01/14 - initiated 02/07/20). She completed 5 doses of remdesivir. Continue isolation precautions. Continue supplemental oxygen as needed to achieve a pulse oxygen saturation of 92%. Wean to goal. Continue acetaminophen as needed for fever, mucolytic therapy, and bronchodilator. Add PEP therapy. Continue to trend acute phase reactants. She did develop a fever 02/13/20 (Tmax 102.3F). She has been afebrile since and this may have been due to pulmonary embolism. Sputum culture, urinary antigens, and repeat blood cultures were ordered. Repeat blood cultures reveal NGTD. Other studies pending. Await results. Continue to monitor acute phase reactants. Ferritin is mildly decreased, CRP continues to improve, and LFTs are normal. (2) Pulmonary embolism: Code(s): I26.99 - Other pulmonary embolism without acute cor pulmonale Status: Acute Assessment and Plan: Chest CTA demonstrated several segmental pulmonary embolism bilaterally with low clot burden. Venous doppler US was negative for DVT. She is on therapeutic lovenox. Stop lovenox and start PO eliquis tonight as her insurance will cover this per care coordination. Continue supplemental oxygen as needed to maintain a pulse oxygen saturation of 92%. (3) Acute respiratory failure with hypoxia: Code(s): J96.01 - Acute respiratory failure with hypoxia Status: Acute Assessment and Plan: Secondary to COVID-19. The pt was also found to have acute pulmonary embolism on PE and is on anticoagulation. Oxygen requirements are stable at 4L with rest and 6L with activity. Continue treatment of COVID-19 and pulmonary embolism as above. (4) Essential hypertension: Code(s): I10 - Essential (primary) hypertension Status: Acute Assessment and Plan: Blood pressures were reviewed and acceptable with a few elevated readings earlier today. Most recent reading is 123/62. Continue hydrochlorothiazide and labetalol. Continue to monitor. (5) Breast cancer: Qualifiers: Breast location: unspecified site of breast Estrogen receptor status: unspecified Patient sex: female Laterality: unspecified laterality Qualified Code(s): C50.919 - Malignant neoplasm of unspecified site of unspecified female breast Code(s): C50.919 - Malignant neoplasm of unspecified site of unspecified female breast Status: Acute Assessment and Plan: Patient had a lumpectomy of the right breast 10 years ago and has been maintained on daily anastrozole therapy since that time. Hold Anastrozole given risks for hypercoagulability with COVID-19 infection and acute pulmonary embolism. (6) Hypokalemia: Code(s): E87.6 - Hypokalemia Status: Resolved Assessment and Plan: Resolved. Potassium is 4.4 today. Continue to monitor. Subjective Date/time seen: 02/15/20 15:06 Interval history: Mrs. Zamora is an 84 y.o. female with PMH significant for hypertension and breast cancer on anastrozole who is seen in follow-up for COVID-19 pneumonia and pulmonary embolism. She reports fatigue. She notes dyspnea with exertion but is very comfortable at rest. She reports continued productive cough and noted improvement with PEP therapy and mucinex. She had a regular bowel movement today. She denies leg pain and swelling. She denies chest pain and palpitations. She denies subjective fever and chills. Review of Systems Review of Systems: All systems reviewed & are unremarkable except as noted in HPI and below Exam Narrative: Exam Narrative: General: Very pleasant and cooperative elderly 84 y.o. female sitting in the chair at th
[2020-02-15] MEDS: APIXABAN 5 MG TABLET 10 MG PO (21:20)
[2020-02-15] MEDS: guaiFENesin 12 HR 600 MG TABCR PO (21:20)
[2020-02-16] VITALS: BP 147/73; PULSE 64; RESP 18; TEMP 36.6; O2SAT 97
[2020-02-16 04:00] VITALS: BP 137/65; PULSE 69; RESP 20; TEMP 36.9; O2SAT 90
[2020-02-16 06:00] LABS: Hematocrit 34.9 % (37.0-47.0); Hemoglobin 11.5 g/dL (12.0-15.0); Mean Corpuscular Hemoglobin 28.9 pg (26-34); Mean Corpuscular Volume 87.7 fl (80-100); Mean Platelet Volume 10.1 fl (7.4-10.4); Platelet Count Result 199 k/mm3 (150-375); Red Blood Count 3.98 M/mm3 (4.2-5.4); Red Cell Distribution Width 13.6 % (11.5-14.5)
[2020-02-16 07:55] LABS: Alanine Aminotransferase 24 U/L (4-35); Albumin Level 2.6 g/dL (3.5-5.1); Alkaline Phosphatase 46 U/L (38-126); Anion Gap 5 mmol/L (8-16); Aspartate Amino Transferase 21 U/L (14-36); Bilirubin,Total 0.6 mg/dL (0.2-1.3); Blood Urea Nitrogen 21 mg/dL (7-17); CRP 3.1 mg/dL (<1.0); Carbon Dioxide 27 mmol/L (22-30); Chloride 103 mmol/L (98-107); Estimated CRCL calculation 52 ml/min; Estimated Glomerular Filt Rate > 60; Glucose 101 mg/dL (65-105); Potassium 4.5 mmol/L (3.4-5.0); Sodium 135 mmol/L (137-145)
[2020-02-16 08:00] VITALS: BP 152/59; PULSE 57; RESP 22; TEMP 37; O2SAT 91
[2020-02-16] MEDS: hydroCHLOROthiazide 25 MG TABLET PO (08:23)
[2020-02-16] MEDS: LABETALOL HCL 100 MG TABLET PO ×2 (08:23→17:25)
[2020-02-16] MEDS: APIXABAN 5 MG TABLET 10 MG PO ×2 (08:23→20:57)
[2020-02-16] MEDS: guaiFENesin 12 HR 600 MG TABCR PO ×2 (08:23→20:57)
[2020-02-16 12:00] VITALS: BP 120/58; PULSE 65; RESP 20; TEMP 36.5; O2SAT 93
[2020-02-16 12:32] LABS: Pneumococcal Antigen Urine Not Detected (Not Detected)
--- NOTE | 2020-02-16 15:01 | PM.IMPN ---
Progress Note: A&P Assessment and Plan (1) COVID-19: Code(s): U07.1 - COVID-19 Status: Acute Assessment and Plan: Admitted 02/06 after 14 days of symptoms. Tested positive for SARS-CoV-2 on 02/01. Her oxygen requirements are unchanged today at 4L at rest and 6L with activity. Continue dexamethasone (day 03/16 - initiated 02/07/20). She completed 5 doses of remdesivir. Continue isolation precautions. Continue supplemental oxygen as needed to achieve a pulse oxygen saturation of 92%. Wean to goal. Continue acetaminophen as needed for fever, mucolytic therapy, and bronchodilator. Continue PEP therapy. Continue to trend acute phase reactants. She did develop a fever 02/13/20 (Tmax 102.3F). She has been afebrile since and this may have been due to pulmonary embolism. Sputum culture and repeat blood cultures were ordered. Repeat blood cultures reveal NGTD. Urine pneumococcal is negative and legionella is pending. Await results. Continue to monitor acute phase reactants. CRP continues to improve. LFTs are normal. (2) Pulmonary embolism: Code(s): I26.99 - Other pulmonary embolism without acute cor pulmonale Status: Acute Assessment and Plan: Chest CTA demonstrated several segmental pulmonary embolism bilaterally with low clot burden. Venous doppler US was negative for DVT. She is on therapeutic lovenox. Stop lovenox and start PO eliquis tonight as her insurance will cover this per care coordination. Continue supplemental oxygen as needed to maintain a pulse oxygen saturation of 92%. (3) Acute respiratory failure with hypoxia: Code(s): J96.01 - Acute respiratory failure with hypoxia Status: Acute Assessment and Plan: Secondary to COVID-19. The pt was also found to have acute pulmonary embolism on PE and is on anticoagulation. Oxygen requirements are stable at 4L with rest and 6L with activity. Continue treatment of COVID-19 and pulmonary embolism as above. (4) Essential hypertension: Code(s): I10 - Essential (primary) hypertension Status: Acute Assessment and Plan: Blood pressures were reviewed and reasonably controlled. Continue hydrochlorothiazide and labetalol. Continue to monitor. (5) Breast cancer: Qualifiers: Breast location: unspecified site of breast Estrogen receptor status: unspecified Laterality: unspecified laterality Patient sex: female Qualified Code(s): C50.919 - Malignant neoplasm of unspecified site of unspecified female breast Code(s): C50.919 - Malignant neoplasm of unspecified site of unspecified female breast Status: Acute Assessment and Plan: Patient had a lumpectomy of the right breast 10 years ago and has been maintained on daily anastrozole therapy since that time. Hold Anastrozole given risks for hypercoagulability with COVID-19 infection and acute pulmonary embolism. (6) Hypokalemia: Code(s): E87.6 - Hypokalemia Status: Resolved Assessment and Plan: Resolved. Potassium is 4.5 today. Continue to monitor. (7) Dyspnea on exertion: Code(s): R06.00 - Dyspnea, unspecified Status: Acute Assessment and Plan: The patient reports a hx of dyspnea on exertion prior to COVID. I will order an echocardiogram to ensure she does not have any component of CHF/valvular disorders. Subjective Date/time seen: 02/16/20 15:01 Interval history: Mrs. Zamora is an 84 y.o. female with PMH significant for hypertension and breast cancer on anastrozole who is seen in follow-up for COVID-19 pneumonia and pulmonary embolism. She is still experiencing dyspnea on exertion but feels the best she has felt in awhile. She reports continue cough and is able to clear sputum with her coughs. She is using PEP therapy and this is helping. She denies subjective fever and chills. She denies nausea, vomiting, and abdominal pain. Her bowels are regular. She denies chest pain and palpitati
[2020-02-16 16:00] VITALS: BP 141/53; PULSE 58; RESP 20; TEMP 36.8; O2SAT 96
[2020-02-16 20:00] VITALS: BP 155/59; PULSE 67; RESP 20; TEMP 36.4; O2SAT 95
[2020-02-17] VITALS (9 sets, daily range): BP systolic 120–149; BP diastolic 52–76; PULSE 57–71; RESP 18–22; TEMP 36.5–36.7; O2SAT 92–98
--- NOTE | 2020-02-17 | ECHO_ITS ---
Patient Info Name: Monie Zamora Age: 84 years : 1935 Gender: Female Ht: 65 in Wt: 170 lbs BSA: 1.90 m2 HR: 52 bpm BP: 129 / 57 mmHg Heart Rhythm: Sinus Rhythm Technical Quality: Good Exam Date: 02/17/2020 1:02 PM Exam Location: [facility] Pulmonary Exam Room: [facility] hospital Patient Status: Inpatient Admit Date: 02/07/2020 Staff Ordering Physician: Estelle Barnes PA-C Wine Manager: Geeta Goyal RDCS Attending Provider: Estelle Barnes PA-C Referring Physician: Cameron RICHARDS; Exam Type: CA echo doppler color flow Study Info Indications - covid jane PE Complete two-dimensional, color flow and Doppler transthoracic echocardiogram is performed. Summary 1. Complete two-dimensional, color flow and Doppler transthoracic echocardiogram is performed. 2. Left ventricular chamber dimension is normal. 3. Left ventricular systolic function is hyperdynamic, estimated at >70%. 4. There is trace aortic valve regurgitation. Left Ventricle Left ventricular chamber dimension is normal. Left ventricular systolic function is hyperdynamic, estimated at >70%. There is mild concentric increased left ventricular wall thickness. The left ventricular diastolic function is grade I diastolic dysfunction. Right Ventricle Right ventricular chamber dimension is normal. Left Atria Left atrial chamber dimension is normal. Right Atria Right atrial chamber dimension is normal. Aortic Valve The aortic valve is trileaflet. There is mild aortic valve sclerosis. There is trace aortic valve regurgitation. Pulmonic Valve The pulmonic valve is not well visualized. Mitral Valve The mitral valve has normal leaflets. Tricuspid Valve The tricuspid valve leaflets are normal. Pericardium/Pleural The pericardium appears normal. Aorta The aortic root size at the sinus of Valsalva is normal. Left Ventricular Outflow Tract Name Value Normal LVOT 2D LVOT Diameter 2.0 cm LVOT Doppler LVOT Peak Gradient 4 mmHg LVOT Mean Gradient 2 mmHg LVOT VTI 21 cm LVOT VTI/AV VTI Ratio 0.7 LVOT Stroke Volume 65 ml LVOT CO 13.0 l/min LVOT CI 6.8 l/min/m2 Pulmonic Valve Name Value Normal PV Doppler PV Peak Gradient 2 mmHg Mitral Valve Name Value Normal MV Doppler MV Decel [place] 304 cm/s2 MV PHT 77 ms MV Area (PHT)
[2020-02-17 07:37] LABS: Alanine Aminotransferase 29 U/L (4-35); Albumin Level 2.7 g/dL (3.5-5.1); Alkaline Phosphatase 45 U/L (38-126); Anion Gap 5 mmol/L (8-16); Aspartate Amino Transferase 24 U/L (14-36); Bilirubin,Total 0.6 mg/dL (0.2-1.3); Blood Urea Nitrogen 20 mg/dL (7-17); CRP 2.1 mg/dL (<1.0); Carbon Dioxide 28 mmol/L (22-30); Chloride 100 mmol/L (98-107); Estimated CRCL calculation 52 ml/min; Estimated Glomerular Filt Rate > 60; Glucose 99 mg/dL (65-105); Lactate Dehydrogenase 362 U/L (313-618); Potassium 4.3 mmol/L (3.4-5.0); Sodium 133 mmol/L (137-145)
[2020-02-17 07:45] LABS: Hematocrit 35.5 % (37.0-47.0); Hemoglobin 11.7 g/dL (12.0-15.0); Mean Corpuscular Hemoglobin 28.9 pg (26-34); Mean Corpuscular Volume 87.7 fl (80-100); Mean Platelet Volume 10.1 fl (7.4-10.4); Platelet Count Result 223 k/mm3 (150-375); Red Blood Count 4.05 M/mm3 (4.2-5.4); Red Cell Distribution Width 13.6 % (11.5-14.5); White Blood Count 7.4 K/mm3 (4.5-10.0)
[2020-02-17] MEDS: APIXABAN 5 MG TABLET 10 MG PO ×2 (08:38→22:16)
[2020-02-17] MEDS: hydroCHLOROthiazide 25 MG TABLET PO (08:38)
[2020-02-17] MEDS: guaiFENesin 12 HR 600 MG TABCR PO ×2 (08:39→22:16)
[2020-02-17] MEDS: LABETALOL HCL 100 MG TABLET PO ×2 (08:39→17:35)
--- NOTE | 2020-02-17 15:00 | PM.IMPN ---
Progress Note: A&P Assessment and Plan (1) COVID-19: Code(s): U07.1 - COVID-19 Status: Acute Assessment and Plan: Admitted 02/06 after 14 days of symptoms. Tested positive for SARS-CoV-2 on 02/01. Her oxygen requirements are unchanged at 4L at rest and 6L with activity. She completed 10 days of dexamethasone and 5 days of remdesivir. Continue isolation precautions. Continue supplemental oxygen as needed to achieve a pulse oxygen saturation of 92%. Wean to goal. Continue acetaminophen as needed for fever, mucolytic therapy, and bronchodilator. Continue PEP therapy. Continue to trend acute phase reactants. She did develop a fever 02/13/20 (Tmax 102.3F). She has been afebrile since and this may have been due to pulmonary embolism. Repeat blood cultures were ordered and reveal NGTD. Urine pneumococcal is negative and legionella is pending. Await results. Continue to monitor acute phase reactants. CRP, ferritin, LDH continue to improve. LFTs are normal. (2) Pulmonary embolism: Code(s): I26.99 - Other pulmonary embolism without acute cor pulmonale Status: Acute Assessment and Plan: Chest CTA demonstrated several segmental pulmonary embolism bilaterally with low clot burden. Venous doppler US was negative for DVT. Lovenox was transitioned to eliquis. Continue supplemental oxygen as needed to maintain a pulse oxygen saturation of 92%. (3) Acute respiratory failure with hypoxia: Code(s): J96.01 - Acute respiratory failure with hypoxia Status: Acute Assessment and Plan: Secondary to COVID-19. The pt was also found to have acute pulmonary embolism on PE and is on anticoagulation. Oxygen requirements are stable at 4L with rest and 6L with activity. Continue treatment of COVID-19 and pulmonary embolism as above. Echocardiogram has been ordered and is pending. (4) Essential hypertension: Code(s): I10 - Essential (primary) hypertension Status: Acute Assessment and Plan: Blood pressures were reviewed and reasonably controlled. Continue hydrochlorothiazide and labetalol. Continue to monitor. (5) Breast cancer: Qualifiers: Breast location: unspecified site of breast Estrogen receptor status: unspecified Patient sex: female Laterality: unspecified laterality Qualified Code(s): C50.919 - Malignant neoplasm of unspecified site of unspecified female breast Code(s): C50.919 - Malignant neoplasm of unspecified site of unspecified female breast Status: Acute Assessment and Plan: Patient had a lumpectomy of the right breast 10 years ago and has been maintained on daily anastrozole therapy since that time. Hold Anastrozole given risks for hypercoagulability with COVID-19 infection and acute pulmonary embolism. (6) Dyspnea on exertion: Code(s): R06.00 - Dyspnea, unspecified Status: Acute Assessment and Plan: The patient reports a hx of dyspnea on exertion prior to COVID. Echocardiogram has been ordered and is pending. (7) Paraesophageal hernia: Code(s): K44.9 - Diaphragmatic hernia without obstruction or gangrene Status: Acute Assessment and Plan: CT abd/pelvis revealed type IV paraesophageal hernia. She has no complaints of GERD, dysphagia, early satiety, chest pain, abdominal pain, or vomiting. Time Spent With Patient Time with patient: 15 - 25 minutes Subjective Date/time seen: 02/17/20 15:00 Interval history: Mrs. Zamora is an 84 y.o. female with PMH significant for hypertension and breast cancer on anastrozole who is seen in follow-up for COVID-19 pneumonia and pulmonary embolism. Oxygen requirements are unchanged despite treatment of her pulmonary embolism and COVID-19. Echocardiogram was ordered and pending for further evaluation. She is feeling fine and eager to go home. She notes ongoing dyspnea with exertion but this at baseline for her. She denies chest pain, pleuritic p
[2020-02-17 17:15] LABS: Legionella pneumophila Ag Ur Not Detected (Not Detected)
[2020-02-18] VITALS (11 sets, daily range): BP systolic 114–135; BP diastolic 53–84; PULSE 54–86; RESP 18–20; TEMP 36.6–36.8; O2SAT 84–96
[2020-02-18] MEDS: ALBUTEROL SULFATE (*SP) AEROSOL 1 PUFF 2 PUFF INHALATION (04:51)
[2020-02-18 07:50] LABS: Hematocrit 35.9 % (37.0-47.0); Hemoglobin 11.8 g/dL (12.0-15.0); Mean Corpuscular HGB Conc 32.9 g/dl (32-36); Mean Corpuscular Hemoglobin 29.2 pg (26-34); Mean Corpuscular Volume 88.9 fl (80-100); Mean Platelet Volume 10.3 fl (7.4-10.4); Platelet Count Result 200 k/mm3 (150-375); Red Blood Count 4.04 M/mm3 (4.2-5.4); White Blood Count 8.1 K/mm3 (4.5-10.0)
[2020-02-18 08:08] LABS: Alanine Aminotransferase 28 U/L (4-35); Albumin Level 2.8 g/dL (3.5-5.1); Alkaline Phosphatase 48 U/L (38-126); Anion Gap 6 mmol/L (8-16); Aspartate Amino Transferase 28 U/L (14-36); Bilirubin,Total 0.6 mg/dL (0.2-1.3); Blood Urea Nitrogen 25 mg/dL (7-17); CRP 1.5 mg/dL (<1.0); Carbon Dioxide 27 mmol/L (22-30); Chloride 100 mmol/L (98-107); Estimated CRCL calculation 52 ml/min; Estimated Glomerular Filt Rate > 60; Glucose 86 mg/dL (65-105); Potassium 4.1 mmol/L (3.4-5.0); Sodium 133 mmol/L (137-145)
[2020-02-18] MEDS: LABETALOL HCL 100 MG TABLET PO (08:19)
[2020-02-18] MEDS: APIXABAN 5 MG TABLET 10 MG PO (08:20)
[2020-02-18] MEDS: hydroCHLOROthiazide 25 MG TABLET PO (08:20)
[2020-02-18] MEDS: guaiFENesin 12 HR 600 MG TABCR PO (08:20)
--- NOTE | 2020-02-18 14:45 | PM.DS ---
DS: Admitting Diagnosis Admitting Diagnosis Admitting Diagnosis: Acute respiratory failure, hypoxia, COVID DS: Discharge Diagnosis Discharge Diagnosis (1) COVID-19: Code(s): U07.1 - COVID-19 Status: Acute Assessment and Plan: Discharge Summary (Date of service 02/18/20): Mrs. Zamora is an 84 y.o. female with PMH significant for hypertension, breast cancer, and known COVID-19 infection (test positive 02/02/20 with multiple known sick contacts in the family) who presented to the emergency department for the evaluation of dyspnea, weakness, cough, anorexia, fever, loss of taste and smell, and myalgias. She reported symptoms for 14 days prior to admission. Initial workup in the ED included CXR with diffuse lung disease suspicious for COVID-19. She was admitted to the hospitalist service and treated with dexamethasone and remdesivir. Chest CTA was ordered given persistent hypoxia despite COVID-19 treatment and demonstrated several segmental pulmonary emboli with low clot burden, moderate acute lung injury, and intrathoracic stomach and pancreas. She was treated with lovenox initially and this was transitioned to eliquis prior to discharge. She completed 10 days of dexamethasone and 5 days of remdesivir. Her oxygen requirements decreased on the day of discharge to 1L at rest and 4L with activity. Echocardiogram was ordered and demonstrated hyperdynamic left ventricular systolic function with EF >70% and trace aortic regurgitation. Outpatient pulmonary function testing was recommended. She felt much better and requested to go home. PT/OT were consulted and not felt to be indicated given she was independent with mobility and ADLs. She was instructed to follow-up with her primary care doctor within 1 week. She was discharged in stable condition on the afternoon of 02/18/20. (2) Pulmonary embolism: Code(s): I26.99 - Other pulmonary embolism without acute cor pulmonale Status: Acute Assessment and Plan: Chest CTA demonstrated several segmental pulmonary embolism bilaterally with low clot burden. Venous doppler US was negative for DVT. Lovenox was transitioned to eliquis at discharge. (3) Acute respiratory failure with hypoxia: Code(s): J96.01 - Acute respiratory failure with hypoxia Status: Acute Assessment and Plan: Secondary to COVID-19 and pulmonary embolism. Oxygen requirements decreased to 1L at rest and 4L with activity. She was discharged with home oxygen and instructions to follow-up with her primary care doctor within 1 week to determine if oxygen is still needed. Outpatient pulmonary function testing is recommended given hx of dyspnea on exertion prior to COVID-19 and she was sent with albuterol for PRN use. (4) Essential hypertension: Code(s): I10 - Essential (primary) hypertension Status: Acute Assessment and Plan: Blood pressures were reviewed and reasonably controlled. Hydrochlorothiazide and labetalol were continued. (5) Breast cancer: Qualifiers: Breast location: unspecified site of breast Estrogen receptor status: unspecified Laterality: unspecified laterality Patient sex: female Qualified Code(s): C50.919 - Malignant neoplasm of unspecified site of unspecified female breast Code(s): C50.919 - Malignant neoplasm of unspecified site of unspecified female breast Status: Acute Assessment and Plan: Patient had a lumpectomy of the right breast 10 years ago and has been maintained on daily anastrozole therapy since that time. Anastrozole was held given the risks for hypercoagulability with COVID-19 infection and acute pulmonary embolism. (6) Dyspnea on exertion: Code(s): R06.00 - Dyspnea, unspecified Status: Acute Assessment and Plan: The patient reports a hx of dyspnea on exertion prior to COVID. Echocardiogram was ordered and demonstrated hyperdynamic left ventricular systolic function with EF
--- NOTE | 2020-02-18 15:32 | HOMEO2EVAL ---
Home Oxygen Evaluation RC: Home Oxygen (O2) Evaluation Start: 02/18/20 14:09 Freq: ONCE Status: Active Protocol: RPE Activity Type Activity Date Activity User E-Sign Co-Sign Detail Recorded Client Recorded Date Recorded By Document 02/18/20 15:15 [email or web address] 02/18/20 15:32 MDE Document 02/18/20 15:18 [email or web address] [email or web address] 02/18/20 15:32 MDE Document 02/18/20 15:20 [email or web address] [email or web address] 02/18/20 15:32 MDE Document 02/18/20 15:25 [email or web address] [email or web address] 02/18/20 15:32 MDE Document 02/18/20 15:28 [email or web address] [email or web address] 02/18/20 15:32 MDE Document 02/18/20 15:32 [email or web address] [email or web address] 02/18/20 15:32 MDE 02/18/20 02/18/20 02/18/20 15:15 15:18 15:20 Home O2 Evaluation Test Phase Resting Resting Exercise Oxygen Delivery Nasal Cannula Nasal Cannula Oxygen Flow Rate (L/min) 1 1 Fraction of Inspired Oxygen (%) 21 Pulse Oximetry (90-100 %) 87 L 92 90 Pulse Rate (60-100 beats/min) 72 72 75 Activity Tolerance Fair Fair Rating of Perceived Dyspnea (PD) +1 Mild, +1 Mild, +2 Mild, Some Noticeable to Noticeable to Difficulty, the Participant the Participant Noticeable to but Not to an but Not to an the Observer Observer Observer Ambulation Distance (feet) 20 Treatment Charges O2 Evaluation 02/18/20 02/18/20 02/18/20 15:25 15:28 15:32 Home O2 Evaluation Test Phase Exercise Exercise Resting Oxygen Delivery Nasal Cannula Nasal Cannula Nasal Cannula Oxygen Flow Rate (L/min) 1 4 4 Fraction of Inspired Oxygen (%) Pulse Oximetry (90-100 %) 84 L 90 91 Pulse Rate (60-100 beats/min) 79 86 85 Activity Tolerance Fair Fair Fair Rating of Perceived Dyspnea (PD) +3 Moderate +3 Moderate +2 Mild, Some Difficulty, But Difficulty, But Difficulty, Can Continue Can Continue Noticeable to the Observer Ambulation Distance (feet) 15 Treatment Charges
--- NOTE | 2020-02-20 10:54 | PM.CNPUL ---
Assessment and Plan Assessment and plan (1) COVID-19: Code(s): U07.1 - COVID-19 Status: Acute Assessment and Plan: Recovering well. Can be discharged home with home oxygen assessment prior to discharge (2) Acute respiratory failure with hypoxia: Code(s): J96.01 - Acute respiratory failure with hypoxia Status: Acute History of Present Illness History of Present Illness Consult date: 02/20/20 Chief complaint: Acute respiratory failure, hypoxia, COVID Narrative: This patient was seen on 02/18/20. 84 y/o female with history of HTN, Afib, prior smoker was admitted on 02/07/20 with COVID-19. She was treated with 5 days of Remdesivir, 10 days of Dexamethason and is now doing well on the medical thompson. Cough has nearly resolved. She denies dyspnea with exertion. Still requiring some oxygen by nasal cannula, appetite is good. Denies any infectious symptoms other than mild greenish sputum at times Review of Systems Review of Systems: All systems reviewed & are unremarkable except as noted in HPI and below PMFSH Past Medical History Medical History (Updated 02/17/20 @ 15:05 by Estelle Barnes PA-C) Breast cancer status post lumpectomy no chemo but had radiation. Elevated glucose Essential hypertension Osteopenia Surgical History Surgical History (Updated 02/07/20 @ 21:46 by Sylvia Dey NP) Cataract extraction status bilaterally H/O lumpectomy Family History Family History Mother Appendicitis due to appendicitis and her 20 Father Family history of emphysema, Onset Age: 84 Social History Social History (Updated 02/07/20 @ 21:50 by Sylvia Dey NP) Social History: the patient worked in a [employer] in various jobs. She is and lives with her . Her was her durable power seam feller but he is sick as well and she would like for her 2 children to be the durable power seam feller for healthcare. We had a long discussion about living will. She is agreeable to CPR and short-term ventilator but does not want to live in a vegetative state On a ventilator. She has the 2 children. She said she tried smoking in the past when she was a kid but did not like it and did continue. No marijuana alcohol or illicit drugs. Smoking status: Never smoker Second hand tobacco smoke exposure: No Alcohol intake: never Substance use: never Gender identity (if verbalized by the patient): Female Sexual Orientation (if Verbalized by the Patient): Straight or Heterosexual Spiritual care concerns: No Meds Home Medications and Allergies Home Medications Medication Instructions Recorded Confirmed Type labetalol 100 mg tablet 100 mg PO BID #180 tablet 01/25/20 02/07/20 Rx anastrozole 1 mg PO DAILY 02/07/20 02/07/20 History hydrochlorothiazide 25 mg PO DAILY 02/07/20 02/07/20 History albuterol sulfate [Proventil HFA] 2 puff INHALATION QIDRT PRN #6.7 gm 02/18/20 Rx apixaban [Eliquis] See Rx Instructions .ROUTE 02/18/20 Rx .COMPLEX #68 tablet Allergies Allergy/AdvReac Type Severity Reaction Status Date / Time nickel Allergy Mild itchiness Verified 01/10/20 14:02 Exam Narrative: Exam Narrative: General: Well-developed, well-nourished 84 y.o. female sitting in the chair at the bedside in no acute distress. HEENT: Normocephalic and atraumatic. Conjunctivae normal. EOMI. Moist oral mucosa. Neck: Supple. Cardiac: Regular rate and rhythm. S1 and S2 normal. Lungs: On 4 liters per NC. Tolerating this well. Speaking in full sentences without distress. Rales on the right mid-lower lung base. No wheezes. Abdomen: Positive bowel sounds. Abdomen is protuberant, soft, non-distended, and non-tender. Extremities: No lower extremity edema or cyanosis. No calf tenderness. PT and DP 2+. Neurological: Alert and oriented. Exam non-focal to casual conversation. Speech is clear. Skin: Warm and dry.
== END 2020-02-18 17:03 | disposition home or self-care (01) | DRG 177 ==
LOC: ANHED 16:50 → ANH3MEDSUR 02-08 11:45
PROVIDERS: Internal Medicine; Nurse Practitioner; Physician Assistant; Admitting Provider Family Medicine; Emergency Provider Emergency Medicine; PCP Family Medicine; Visit Provider Physician Assistant
DX: U07.1 COVID-19 (principal); I26.99 Other pulmonary embolism without acute cor pulmonale; J12.89 Other viral pneumonia; J96.01 Acute respiratory failure with hypoxia; I10 Essential (primary) hypertension; C50.919 Malignant neoplasm of unspecified site of unspecified female breast; K44.9 Diaphragmatic hernia without obstruction or gangrene; M85.80 Other specified disorders of bone density and structure, unspecified site; E87.6 Hypokalemia; Z98.42 Cataract extraction status, left eye; Z98.41 Cataract extraction status, right eye
CPT/HCPCS: 36415; 71045; 71275; 80053; 82728; 83605; 83615; 83735; 84443; 84460; 85025; 85027; 85055; 85380; 85610; 85730; 86140; 87040; 87070; 87205; 87449; 87899; 93005; 93306; 93970; 94618; 94640; 94667; 94668; 96365; 97161; 97165; 99291; A9270; J0131; J1100; J1650; Q9967

== ENCOUNTER 2020-02-26 10:16 | Inpatient (IN) | payer MEDICARE, SELFPAY ==
[2020-02-26] VITALS (20 sets, daily range): BP systolic 101–132; BP diastolic 49–68; PULSE 63–78; RESP 14–24; TEMP 36.6–37.1; O2SAT 90–100; BMI 27.3
--- NOTE | ~2020-02-26 | US_ITS ---
EXAMINATION: US venous doppler LE EXAM DATE: 02/26/2020 11:52 INDICATION: Bilateral leg edema. TECHNIQUE: Multiple grayscale, color flow and Doppler images of the lower extremity deep venous syste ms bilaterally were obtained and reviewed. Comparison is made to prior examination from 02/14/2020. FINDINGS: Right side: The right common femoral, femoral and profunda veins demonstrate normal color flow, respi ratory variation, augmentation and compressibility. Compressibility, color flow confirmed within the right popliteal, posterior tibial, peroneal, and greater saphenous veins. In the popliteal fossa th ere is complex cystic region measuring 5.4 x 2.0 x 3.5 cm, probably Casper's cyst. Left side: The left common femoral, femoral and profunda veins demonstrate normal color flow, respira tory variation, augmentation and compressibility. Compressibility, color flow confirmed within the l eft popliteal, posterior tibial, peroneal, and greater saphenous veins. In the popliteal fossa there is complex cystic region measuring 4.5 x 1.8 x 3.1 cm, probably Casper's cyst. IMPRESSION: 1. No lower extremity deep venous thrombosis bilaterally. 2. 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 Reviewed, dictated and finalized at location B. IMPRESSION: 1. No lower extremity deep venous thrombosis bilaterally. 2. Complex cystic popliteal fossa masses bilaterally most likely chronic Casper 's cysts.
--- NOTE | ~2020-02-26 | XR_ITS ---
EXAMINATION: XR chest 1V portable DATE: 02/27/2020 08:23 INDICATION: COVID-19 pneumonia. TECHNIQUE: A single frontal view of the chest was obtained. COMPARISON: Chest single view 02/07/2020, chest CT 02/12/2023 FINDINGS: There are airspace opacities in all lung zones bilaterally, worst in right midlung zone and peripheral left mid and upper lung zones. Calcified left lung nodules and calcified bilateral hilar lymph nodes are consistent with old granulomatous disease. There are small pleural effusions. No pneu mothorax. The heart size is normal. There is a large hiatal hernia. IMPRESSION: 1. Diffuse lung disease with slight improvement, consistent with pneumonia versus acute respiratory d istress syndrome (ARDS). 2. Large hiatal hernia. Reviewed, dictated and finalized at location A. IMPRESSION: 1. Diffuse lung disease with slight improvement, consistent with pneumonia vers us acute respiratory distress syndrome (ARDS). 2. Large hiatal hernia.
--- NOTE | ~2020-02-26 | XR_ITS ---
EXAMINATION: XR ankle LT min 3V DATE: 02/27/2020 08:25 INDICATION: Left ankle pain and swelling. TECHNIQUE: 3 views of left ankle were obtained. COMPARISON: Left foot radiographs 03/27/2020 FINDINGS: Bone alignment is normal. There is heterotopic ossification distal to medial malleolus. The re is periosteal reaction of medial malleolus. 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 There is an en thesophyte at plantar aspect of calcaneal tuberosity. IMPRESSION: 1. Periosteal reaction of medial malleolus, which may be from a healing fracture or venous stasis. 2. Heterotopic ossification distal to medial malleolus, which may be from an acute fracture or old in jury. 3. Severe midfoot osteoarthritis. Reviewed, dictated and finalized at location A. IMPRESSION: 1. Periosteal reaction of medial malleolus, which may be from a healing fractur e or venous stasis. 2. Heterotopic ossification distal to medial malleolus, which may be from an ac alex fracture or old injury. 3. Severe midfoot osteoarthritis.
--- NOTE | ~2020-02-26 | XR_ITS ---
XR foot LT min 3V 02/26/2020 10:59 Indication: Left foot pain Procedure: 4 views left foot Comparison: No prior studies for comparison. Findings: Soft tissue swelling adjacent to the fifth MTP joint. Generalized osteopenia. Moderate oste oarthritis of the first MTP joint. Lisfranc joint intact. There is a degenerative calcaneal enthesoph yte. There are degenerative changes of the tarsal metatarsal joints. No erosive changes. No acute fra cture or traumatic malalignment. Impression: 1: No acute fracture. 2: Mild-moderate polyarticular osteoarthritis. 3: Soft tissue swelling adjacent to the fifth MTP joint. Reviewed, dictated and finalized at location A. Impression: 1: No acute fracture. 2: Mild-moderate polyarticular osteoarthritis. 3: Soft tissue swelling adjacent to the fifth MTP joint.
--- NOTE | 2020-02-26 12:10 | ED.EXTPRO ---
HPI - Extremity Problem General Chief complaint: Extremity Problem,Nontraumatic <MARÍA Sandhu Last Filed: 02/26/20 14:20> Stated complaint: foot swelling <MARÍA Sandhu Last Filed: 02/26/20 14:20> Time Seen by Provider: 02/26/20 11:14 <MARÍA Sandhu Last Filed: 02/26/20 14:20> Source: patient <MARÍA Sandhu Last Filed: 02/26/20 14:20> Mode of arrival: wheelchair <MARÍA Sandhu Last Filed: 02/26/20 14:20> Limitations: no limitations <MARÍA Sandhu Last Filed: 02/26/20 14:20> History of Present Illness HPI Narrative: This is an 84-year-old female that presents to the emergency department for left foot swelling x5 days. Reports redness to the area as well. Reports she was recently admitted for COVID pneumonia and was found to have blood clots in her lungs and started on anticoagulation. Reports a couple of days after discharge she started to note swelling in her left foot. Also reports pain in the foot that is worse with weightbearing. Denies fever, chest pain, or shortness of breath. <MARÍA Sandhu Last Filed: 02/26/20 14:20> Related Data Home medications: Home Medications Medication Instructions Recorded Confirmed anastrozole 1 mg PO DAILY 02/07/20 02/07/20 hydrochlorothiazide 25 mg PO DAILY 02/07/20 02/07/20 <MARÍA Sandhu Last Filed: 02/26/20 14:20> Allergies/Adverse reactions: Allergies Allergy/AdvReac Type Severity Reaction Status Date / Time nickel Allergy Mild itchiness Verified 02/26/20 10:46 <MARÍA Sandhu Last Filed: 02/26/20 14:20> Review of Systems Review of Systems: Narrative: CONSTITUTIONAL: Denies fever SKIN: Reports redness MUSCULOSKELETAL: Reports joint pain, and myalgia. NEUROLOGIC: Denies numbness, or weakness. <MARÍA Sandhu Last Filed: 02/26/20 14:20> All systems reviewed & are unremarkable except as noted in HPI and below <Kathryn Aldridge PA-C - Last Filed: 02/26/20 14:20> [facility] Past Medical History Medical History: Medical History (Updated 02/26/20 @ 14:01 by Kathryn Aldridge PA-C) Breast cancer status post lumpectomy no chemo but had radiation. Elevated glucose Essential hypertension Osteopenia <Kathryn Aldridge PA-C - Last Filed: 02/26/20 14:20> Surgical History Surgical History: Surgical History (Updated 02/07/20 @ 21:46 by Sylvia Dey NP) Cataract extraction status bilaterally H/O lumpectomy <Kathryn Aldridge PA-C - Last Filed: 02/26/20 14:20> Social History Social History: Social History (Updated 02/07/20 @ 21:50 by Sylvia Dey NP) Social History: the patient worked in a [employer] in various jobs. She is and lives with her . Her was her durable power city attorney but he is sick as well and she would like for her 2 children to be the durable power city attorney for healthcare. We had a long discussion about living will. She is agreeable to CPR and short-term ventilator but does not want to live in a vegetative state On a ventilator. She has the 2 children. She said she tried smoking in the past when she was a kid but did not like it and did continue. No marijuana alcohol or illicit drugs. Smoking status: Never smoker Second hand tobacco smoke exposure: No Alcohol intake: never Substance use: never Gender identity (if verbalized by the patient): Female Spiritual care concerns: No <Kathryn Aldridge PA-C - Last Filed: 02/26/20 14:20> Exam Narrative: Exam Narrative: GENERAL: Well-appearing, well-nourished, and in no acute distress. HEAD: Normocephalic, atraumatic. EYES: EOMI. CHEST: Clear to auscultation. No respiratory distress. No wheezes rales or rhonchi HEART: Regular rate and rhythm. No murmur heard. Normal peripheral pulses. EXTREMITIES: Normal range of motion. Moderate edema to the dorsal surface of the left foot with mild redness o
[2020-02-26 12:15] LABS: Basophils Percent Auto 0.1 % (0.2-1.2); Eosinophils Percent Auto 0.4 % (0-4.4); Hematocrit 32.4 % (37.0-47.0); Hemoglobin 10.8 g/dL (12.0-15.0); Immature Granulocyte Absolute 0.05 K/mm3 (0.00-0.031); Immature Granulocyte Percent A 0.7 % (0-0.5); Lymphocytes Percent Auto 8.4 % (18.3-44.2); Mean Corpuscular HGB Conc 33.3 g/dl (32-36); Mean Corpuscular Volume 86.9 fl (80-100); Mean Platelet Volume 10.3 fl (7.4-10.4); Monocytes Absolute Auto 0.5 K/mm3 (0.1-0.6); Monocytes Percent Auto 7.5 % (2.6-8.5); Neutrophils Absolute Auto 5.9 K/mm3 (1.3-6.7); Neutrophils Percent Auto 82.9 % (45.5-73.1); Platelet Count Result 245 k/mm3 (150-375); Red Blood Count 3.73 M/mm3 (4.2-5.4); Red Cell Distribution Width 13.4 % (11.5-14.5); White Blood Count 7.1 K/mm3 (4.5-10.0)
[2020-02-26 12:28] LABS: Anion Gap 8 mmol/L (8-16); Blood Urea Nitrogen 23 mg/dL (7-17); Calcium 9.7 mg/dL (8.4-10.2); Carbon Dioxide 28 mmol/L (22-30); Chloride 95 mmol/L (98-107); Estimated CRCL calculation 38 ml/min; Estimated Glomerular Filt Rate 53; Glucose 115 mg/dL (65-105); Potassium 3.3 mmol/L (3.4-5.0); Sodium 131 mmol/L (137-145); Uric Acid 7.4 mg/dL (2.5-7.5)
[2020-02-26 12:31] LABS: Partial Thromboplastin Time 48.5 SECONDS (22.3-36.8)
[2020-02-26 12:41] LABS: INR 2.1; Prothrombin Time 22.9 Seconds (11.1-14.7)
[2020-02-26 12:42] LABS: CRP 19.8 mg/dL (<1.0)
[2020-02-26] MEDS: POTASSIUM CHLORIDE 20 MEQ TABLET PO (12:46)
[2020-02-26] MEDS: SODIUM CHLORIDE 0.9% IV 500 ML 999 ML IV CONT (12:46)
[2020-02-26 13:08] LABS: NT Pro B Type Natriuretic Pept 377 PG/ML (5-100)
[2020-02-26 13:10] LABS: Erythrocyte Sedimentation Rate > 140 mm/hr (0-20)
[2020-02-26] MEDS: COLCHICINE 0.6 MG TABLET 1.2 MG PO (13:52)
[2020-02-26] MEDS: ACETAMINOPHEN 500 MG TABLET 1000 MG PO (13:52)
--- NOTE | 2020-02-26 13:54 | PCCCNOTE ---
Spoke with patient and daughter at [facility] for possible [facility]cf placement. Pt's is already at [facility] and this would be her first choice. Patient tested positive for covid 3 weeks ago and it is her understanding that she is currently negative. message left for Nohemy at [facility] with request for call back. Covid swab ordered as is a PT/OT eval and treat order
--- NOTE | 2020-02-26 15:29 | PCCCNOTE ---
Spoke with Nohemy at [facility]. There is a bed available and patient may be able to be cohorted with her who is alondra admittd at [facility] but patient will require a 3 night stay here. Spoke with patient and pt's daughter regarding this update and expalined it would be self-pay if she did not stay 3 nights here at [facility]. Also explained those 3 nights would require medical necessity or the charge would be approximately $170 per night. Discussed the possibility of Home Health if she does not meet criteria for being admitted at [facility]. Answered all questions to patient and daughter's satisfaction.
[2020-02-26] MEDS: COLCHICINE 0.6 MG TABLET PO (16:33)
--- NOTE | 2020-02-26 19:30 | PM.IMHP ---
H&P: HPI History of Present Illness Date/Time: 02/26/20 19:30 Chief complaint: Left foot pain. Narrative: Monie Zamora is a very pleasant 84-year-old female with history of breast cancer, hypertension, anemia, pulmonary embolism, and recent hospitalization with COVID-19 who presented to the emergency department earlier today via private vehicle from home for evaluation of left foot pain. She is known to the hospitalist service with a recent admission from 02/06 through 02/17 in which she was admitted with acute respiratory failure, treated for COVID-19 and bilateral, segmental pulmonary emboli. She still had oxygen requirement and was discharged home on 2 L, and I believe she is now on 1 L at this time. In any regard, over the last 4 5 days she has developed pain in the lateral aspect of the left forefoot with more recent development of erythema and edema which now extends up to the ankle. It is extremely painful with weight-bearing and palpation. It is to the point where she can hardly get around the house as she is avoiding putting weight on that foot. She has had similar episodes in the past and has always wondered if she had gout however she assumed it was not gout as she never experienced the typical podagra. She does not believe that she injured the area and does not recall any cuts or bites in the region. She has no history of rheumatoid arthritis, septic arthritis, or history of surgery near that site. She has not had fever, chills, or sweats. No chest pain or current shortness of breath. She also denies nausea, vomiting, and diarrhea. Review of Systems Review of Systems: Narrative: Twelve systems were reviewed with pertinent positives and negatives as per HPI. She is not having fever, chills, or sweats. No sinus congestion, rhinorrhea, otalgia, or odynophagia. She still has an occasional cough from the COVID, but is not productive. She is still very weak from her recent hospitalization and has not been doing much around the home. Her appetite has been okay. She denies nausea, vomiting, and diarrhea. Except as documented, all other systems were reviewed and are negative. [facility] Past Medical History Medical History (Updated 02/26/20 @ 23:42 by Julita Huitron PA-C) Cancer of right breast (~2009) Status post lumpectomy and antiestrogen therapy. Chronic anemia COVID-19 (~02/02/20) Essential hypertension Osteopenia Pulmonary embolism (~02/2020) Surgical History Surgical History (Updated 02/26/20 @ 23:34 by Julita Huitron PA-C) History of bilateral cataract extraction History of lumpectomy of right breast (~2009) For treatment of right breast cancer. Family History Family History Mother Appendicitis due to appendicitis and her 20 Father Family history of emphysema, Onset Age: 84 Social History Social History (Updated 02/26/20 @ 23:35 by Julita Huitron PA-C) Social History: Mrs. Zamora lives with her in [place]. Her also had COVID-19 and he is currently undergoing rehab. They have 2 grown children. She retired from [employer]. She is a lifelong nonsmoker and denies alcohol and illicit substance use. Her Dick and 2 children are her surrogate decision makers. She wishes to be a full code, however she would not want to be on long-term life support. Smoking status: Never smoker Second hand tobacco smoke exposure: No Alcohol intake: never Substance use: never Gender identity (if verbalized by the patient): Female Spiritual care concerns: No Meds Home Medications and Allergies Home Medications Medication Instructions Recorded Confirmed Type labetalol 100 mg tablet 100 mg PO BID #180 tablet 01/25/20 02/26/20 Rx hydrochlorothiazide 25 mg PO DAILY 02/07/20 02/26/20 History albuterol sulfate [Proventil HFA] 2 puff INHALATION QIDRT PRN #6.7 gm 02/18/20 02/26/20 Rx apixaban [
[2020-02-27] VITALS (8 sets, daily range): BP systolic 102–113; BP diastolic 47–61; PULSE 63–88; RESP 18–20; TEMP 36.6–36.8; O2SAT 93–99
[2020-02-27] MEDS: APIXABAN 5 MG TABLET PO ×3 (03:01→20:14)
[2020-02-27 06:10] LABS: Basophils Percent Auto 0.4 % (0.2-1.2); Eosinophils Absolute Auto 0.1 K/mm3 (0-0.3); Eosinophils Percent Auto 1.8 % (0-4.4); Hematocrit 29.6 % (37.0-47.0); Hemoglobin 9.7 g/dL (12.0-15.0); Immature Granulocyte Absolute 0.04 K/mm3 (0.00-0.031); Immature Granulocyte Percent A 0.8 % (0-0.5); Lymphocytes Absolute Auto 0.59 K/mm3 (0.9-3.2); Lymphocytes Percent Auto 11.8 % (18.3-44.2); Mean Corpuscular HGB Conc 32.8 g/dl (32-36); Mean Corpuscular Hemoglobin 29.1 pg (26-34); Mean Corpuscular Volume 88.9 fl (80-100); Mean Platelet Volume 10.4 fl (7.4-10.4); Monocytes Absolute Auto 0.4 K/mm3 (0.1-0.6); Monocytes Percent Auto 7.6 % (2.6-8.5); Neutrophils Absolute Auto 3.9 K/mm3 (1.3-6.7); Neutrophils Percent Auto 77.6 % (45.5-73.1); Platelet Count Result 230 k/mm3 (150-375); Red Blood Count 3.33 M/mm3 (4.2-5.4); Red Cell Distribution Width 13.6 % (11.5-14.5)
[2020-02-27 06:25] LABS: Alanine Aminotransferase 18 U/L (4-35); Albumin Level 2.8 g/dL (3.5-5.1); Alkaline Phosphatase 63 U/L (38-126); Anion Gap 4 mmol/L (8-16); Aspartate Amino Transferase 20 U/L (14-36); Bilirubin,Total 0.8 mg/dL (0.2-1.3); Blood Urea Nitrogen 20 mg/dL (7-17); Calcium 9.4 mg/dL (8.4-10.2); Carbon Dioxide 29 mmol/L (22-30); Chloride 99 mmol/L (98-107); Estimated CRCL calculation 38 ml/min; Estimated Glomerular Filt Rate 60; Glucose 108 mg/dL (65-105); Magnesium 2.1 mg/dL (1.6-2.3); Potassium 3.5 mmol/L (3.4-5.0); Sodium 132 mmol/L (137-145)
[2020-02-27 06:41] LABS: Rheumatoid Factor < 12.0 IU/ML (<12)
[2020-02-27] MEDS: LABETALOL HCL 100 MG TABLET PO ×2 (09:21→20:14)
[2020-02-27 13:55] LABS: SARS-CoV-2 RNA PCR Negative
[2020-02-27] MEDS: methylPREDNISolone SOD SUCC 125 MG VIAL 60 MG IV PUSH (14:06)
[2020-02-27] MEDS: POTASSIUM CHLORIDE 20 MEQ TABLET 40 MEQ PO (14:10)
--- NOTE | 2020-02-27 15:51 | PM.IMPN ---
Progress Note: A&P Assessment and Plan (1) Cellulitis of left foot: Code(s): L03.116 - Cellulitis of left lower limb Status: Acute Assessment and Plan: empirically treated as cellulitis but also given colchicine in the ER. This point will continue with antibiotics pending results of cultures but I strongly feel this is more of an inflammatory arthritis with normal white count. Will treat with Solu-Medrol and colchicine and watch her clinical course. If it resolves quickly Will know is more inflammatory (2) Pulmonary embolism: Code(s): I26.99 - Other pulmonary embolism without acute cor pulmonale Status: Acute Assessment and Plan: continue the apixaban. O2 sats now good on room air (3) Chronic anemia: Code(s): D64.9 - Anemia, unspecified Status: Acute Assessment and Plan: hemoglobin unchanged continue to monitor (4) Essential hypertension: Code(s): I10 - Essential (primary) hypertension Status: Acute Assessment and Plan: blood pressure well controlled and off hydrochlorothiazide with low sodium and potassium which are better today was sodium 132 potassium 3.5 Subjective Date/time seen: 02/27/20 15:51 Interval history: date of visit 02/26. 84-year-old white female with recent history of COVID pneumonia pulmonary emboli admitted with painful left foot and ankle. Treated as cellulitis. She does relate that she has had episodes of this in the past though that would recur and last about 4 days and resolve with rest and anti inflammatory. no fever no chills Exam Narrative: Exam Narrative: blood pressure 110/60 pulse 72 sat 97% on room air afebrile pupil equal reactive light sclera anicteric lungs clear CV regular rate rhythm extremities without edema left foot is warm to touch there is some erythema and some tenderness laterally as well as in the ankle and hurts to bear weight Objective Data Vital Signs Vital Signs: Vital Signs - 24 hr 02/26/20 16:00 02/26/20 20:00 02/27/20 00:00 Temperature 36.6 C 36.7 C 36.6 C Pulse Rate 63 78 63 Respiratory Rate 18 20 20 Blood Pressure 117/49 L 110/52 L 110/47 L Pulse Oximetry 95 93 99 02/27/20 04:00 02/27/20 08:00 02/27/20 09:21 Temperature 36.7 C 36.8 C Pulse Rate 72 72 72 Respiratory Rate 20 18 Blood Pressure 113/48 L 111/52 L Pulse Oximetry 97 99 02/27/20 09:30 02/27/20 12:30 Temperature 36.7 C Pulse Rate 71 Respiratory Rate 20 Blood Pressure 111/57 L Pulse Oximetry 93 97 Intake/Output Intake/Output: Intake & Output 02/24/20 02/25/20 02/26/20 02/27/20 23:59 23:59 23:59 23:59 Intake Total 840 930 Output Total 200 Balance 640 930 Meds/Results Medications: Active Medications Generic Name Dose Route Start Last Admin Trade Name Freq PRN Reason Stop Dose Admin Albuterol 2 puff 02/26/20 23:47 Proventil Hfa INHALATION QIDRT PRN Shortness Of Breath Apixaban 5 mg 02/27/20 00:10 02/27/20 09:21 Eliquis PO 5 mg Q12HR MALI Administration Colchicine 0.6 mg 02/27/20 21:00 Colchicine Po PO Q12HR MALI Cefazolin Sodium 1 gm in 50 mls @ 100 mls/hr 02/26/20 22:00 02/27/20 14:54 Ancef 1 Gm/D5w 50 Ml Pm IVPB Infused Q8H MALI Infusion Labetalol HCl 100 mg 02/27/20 00:10 02/27/20 09:21 Trandate PO 100 mg Q12HR MALI Administration Radiology Results: ITS Impressions Foot X-Ray 02/26/20 11:05 Impression: 1: No acute fracture. 2: Mild-moderate polyarticular osteoarthritis. 3: Soft tissue swelling adjacent to the fifth MTP joint. Venous Doppler Study 02/26/20 11:54 IMPRESSION: 1. No lower extremity deep venous thrombosis bilaterally. 2. 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 Chest X-Ray 02/27/20 08:38 IMPRESSION: 1. Diffuse lung disease with slight improvement, consistent with pneumonia versus acute respiratory distress syndro
[2020-02-27] MEDS: COLCHICINE 0.6 MG TABLET PO (20:14)
[2020-02-28 05:44] LABS: Anion Gap 3 mmol/L (8-16); Blood Urea Nitrogen 23 mg/dL (7-17); Calcium 9.7 mg/dL (8.4-10.2); Carbon Dioxide 27 mmol/L (22-30); Chloride 101 mmol/L (98-107); Estimated CRCL calculation 47 ml/min; Estimated Glomerular Filt Rate > 60; Glucose 140 mg/dL (65-105); Potassium 4.3 mmol/L (3.4-5.0); Sodium 131 mmol/L (137-145)
[2020-02-28 05:54] VITALS: BP 136/66; PULSE 62; RESP 16; TEMP 36.6; O2SAT 93
[2020-02-28 08:34] VITALS: PULSE 70
[2020-02-28] MEDS: APIXABAN 5 MG TABLET PO ×2 (08:34→20:19)
[2020-02-28] MEDS: LABETALOL HCL 100 MG TABLET PO ×2 (08:34→20:18)
[2020-02-28] MEDS: COLCHICINE 0.6 MG TABLET PO ×2 (08:35→20:18)
[2020-02-28] MEDS: methylPREDNISolone SOD SUCC 125 MG VIAL 60 MG IV PUSH (10:11)
[2020-02-28 14:00] VITALS: BP 135/65; PULSE 75; RESP 18; TEMP 36.3; O2SAT 97
--- NOTE | 2020-02-28 16:59 | PM.IMPN ---
Progress Note: A&P Assessment and Plan (1) Cellulitis of left foot: Code(s): L03.116 - Cellulitis of left lower limb Status: Acute Assessment and Plan: empirically treated as cellulitis but also given colchicine in the ER. This point will continue with antibiotics but I strongly feel this is more of an inflammatory arthritis with normal white count(no BC were drawn in ER). Will treat with Solu-Medrol again today and colchicine as her clinical course has improved. Since resolving quickly more apt to be inflammatory (2) Pulmonary embolism: Code(s): I26.99 - Other pulmonary embolism without acute cor pulmonale Status: Acute Assessment and Plan: continue the apixaban. O2 sats now good on room air (3) Chronic anemia: Code(s): D64.9 - Anemia, unspecified Status: Acute Assessment and Plan: hemoglobin unchanged continue to monitor (4) Essential hypertension: Code(s): I10 - Essential (primary) hypertension Status: Acute Assessment and Plan: blood pressure well controlled and off hydrochlorothiazide with low sodium and potassium which are better today was sodium 131 potassium 4.3. continue labetalol Subjective Date/time seen: 02/28/20 16:59 Interval history: date of visit 02/27. 84-year-old white female with recent history of COVID pneumonia pulmonary emboli admitted with painful left foot and ankle. Treated initially as cellulitis. She does relate that she has had episodes of this in the past though that would recur and last about 4 days and resolve with rest and anti inflammatory. no fever no chills. Feels much better today Exam Narrative: Exam Narrative: blood pressure 134/64 pulse 72 sat 97% on room air afebrile pupil equal reactive light sclera anicteric lungs clear CV regular rate rhythm extremities without edema left foot less warm to touch and less erythema and some tenderness still at ankle but better Objective Data Vital Signs Vital Signs: Vital Signs - 24 hr 02/27/20 20:14 02/27/20 22:00 02/28/20 05:54 Temperature 36.8 C 36.6 C Pulse Rate 72 88 62 Respiratory Rate 18 16 Blood Pressure 102/61 136/66 Pulse Oximetry 94 93 02/28/20 08:34 02/28/20 14:00 Temperature 36.3 C L Pulse Rate 70 75 Respiratory Rate 18 Blood Pressure 135/65 Pulse Oximetry 97 Intake/Output Intake/Output: Intake & Output 02/25/20 02/26/20 02/27/20 02/28/20 23:59 23:59 23:59 23:59 Intake Total 840 1770 730 Output Total 200 400 201 Balance 640 1370 529 Meds/Results Medications: Active Medications Generic Name Dose Route Start Last Admin Trade Name Freq PRN Reason Stop Dose Admin Albuterol 2 puff 02/26/20 23:47 Proventil Hfa INHALATION QIDRT PRN Shortness Of Breath Apixaban 5 mg 02/27/20 00:10 02/28/20 08:34 Eliquis PO 5 mg Q12HR MALI Administration Colchicine 0.6 mg 02/27/20 21:00 02/28/20 08:35 Colchicine Po PO 0.6 mg Q12HR MALI Administration Cefazolin Sodium 1 gm in 50 mls @ 100 mls/hr 02/26/20 22:00 02/28/20 14:05 Ancef 1 Gm/D5w 50 Ml Pm IVPB 100 mls/hr Q8H MALI Administration Labetalol HCl 100 mg 02/27/20 00:10 02/28/20 08:34 Trandate PO 100 mg Q12HR MALI Administration Radiology Results: ITS Impressions Foot X-Ray 02/26/20 11:05 Impression: 1: No acute fracture. 2: Mild-moderate polyarticular osteoarthritis. 3: Soft tissue swelling adjacent to the fifth MTP joint. Venous Doppler Study 02/26/20 11:54 IMPRESSION: 1. No lower extremity deep venous thrombosis bilaterally. 2. 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 Chest X-Ray 02/27/20 08:38 IMPRESSION: 1. Diffuse lung disease with slight improvement, consistent with pneumonia versus acute respiratory distress syndrome (ARDS). 2. Large hiatal hernia. Ankle X-Ray 02/27/20 08:41 IMPRESSION: 1. Periosteal reaction of m
[2020-02-28 20:18] VITALS: PULSE 82
[2020-02-28 22:00] VITALS: BP 128/61; PULSE 77; RESP 18; TEMP 36.6; O2SAT 95
[2020-02-29 05:57] VITALS: BP 152/62; PULSE 64; RESP 18; TEMP 36.6; O2SAT 94
[2020-02-29 08:00] VITALS: PULSE 74; RESP 18; O2SAT 94
[2020-02-29] MEDS: COLCHICINE 0.6 MG TABLET PO (10:05)
[2020-02-29 10:06] VITALS: PULSE 74
[2020-02-29] MEDS: LABETALOL HCL 100 MG TABLET PO (10:06)
[2020-02-29] MEDS: APIXABAN 5 MG TABLET PO (10:07)
[2020-02-29] MEDS: methylPREDNISolone SOD SUCC 125 MG VIAL 60 MG IV PUSH (11:57)
[2020-02-29 13:21] LABS: SARS-CoV-2 RNA PCR Negative
--- NOTE | 2020-02-29 15:22 | PM.DS ---
DS: Admitting Diagnosis Admitting Diagnosis Admitting Diagnosis: Left foot pain. DS: Discharge Diagnosis Discharge Diagnosis (1) Cellulitis of left foot: Code(s): L03.116 - Cellulitis of left lower limb Status: Acute Assessment and Plan: empirically treated as cellulitis but also given colchicine in the ER. continued with antibiotics but I strongly feel this is more of an inflammatory arthritis with normal white count(no BC were drawn in ER). treated with Solu-Medrol and colchicine and her clinical course has improved within 24 hours again suggesting inflammation. No antibiotics on discharge (2) Pulmonary embolism: Code(s): I26.99 - Other pulmonary embolism without acute cor pulmonale Status: Acute Assessment and Plan: continue the apixaban. O2 sats now good on room air. follow up with Dr Pérez for duration of Rx (3) Chronic anemia: Code(s): D64.9 - Anemia, unspecified Status: Acute Assessment and Plan: hemoglobin unchanged continue to monitor (4) Essential hypertension: Code(s): I10 - Essential (primary) hypertension Status: Acute Assessment and Plan: blood pressure well controlled and off hydrochlorothiazide with low sodium and potassium sodium 131 potassium 4.3. 02/27 continue labetalol DS: Summary Hospital Course Hospital Course: 84-year-old hypertensive female recently treated for COVID pneumonia and pulmonary emboli Admitted with painful swollen left foot and ankle. She had no fever no chills and white cell count was normal. She was empirically treated as cellulitis with normal x-ray and uric acid at upper limits of normal at 7.4. She did relate that she has had episodes similar to this in the past several times that would last 3-4 days and resolved. We added steroids and continue colchicine and within 24 hour she had marked improvement. Thus we felt that she had an inflammatory arthritis possibly gout and will receive 3 more days of prednisone 40 mg daily and gave her script for colchicine 0.6 to use b.i.d. if she gets flare up. Time Spent with Patient Time attestation: Total time spent providing and/or coordinating discharge services: 35 minutes Exam Narrative: Exam Narrative: condition on discharge blood pressure 136/62 pulse is 74 saturating 94% on room air lungs clear with faint crackle right posterior base still CV regular rate rhythm abdomen soft nontender extremities without edema left foot slightly warm and slightly tender to palpation at the ankle, but much less so than on admission and patient able to ambulate and bear weight. Stable and able to be discharged home with home health DS: Data Data Completed and Pending Labs on day of discharge: Labs from last 24 hours 02/29/20 03:05 SARS-CoV-2 RNA (RT-PCR) Negative Discharge Plan Discharge Attending physician on discharge: Caden Vanessa Consulting providers: Kathryn Aldridge Discharging Clinician: Caden Vanessa Patient Disposition: Home Health Service Activity: as tolerated Diet: low sodium Discharge Instructions: Per Care Coordination, pt.'s current discharge plan is to return home with [facility] for continued PT/OT. [facility] will call pt. to schedule her first appointment. Patient Instructions: Antibiotic Form, Apixaban (By mouth), Pulmonary Embolism (DC), Cellulitis (DC) Stand Alone Forms: General Discharge Information Follow-up/Referrals: Julieta Pérez MD [Primary Care Provider] - 2 Weeks Discharge Medications: New colchicine [Colcrys] 0.6 mg Tablet 0.6 mg PO Q12HR Qty: 60 RF: 0 prednisone 20 mg tablet 20 mg PO BID Qty: 6 RF: 0 Continued albuterol sulfate [Proventil HFA] 90 mcg/actuation Hfa Aerosol Inhaler 2 puff inhalation QIDRT PRN (Reason: Shortness Of Breath) Qty: 6.7 RF: 0 Eliquis 5 mg tablet 5 mg PO BID RF: 0 labetalol 100 mg tablet
== END 2020-02-29 15:05 | disposition home health service (06) | DRG 603 ==
LOC: ANHED 14:01 → ANH3MEDSUR 14:29
PROVIDERS: Internal Medicine; Physician Assistant; Admitting Provider Internal Medicine; Emergency Provider Emergency Medicine; PCP Family Medicine; Visit Provider Internal Medicine
DX: L03.116 Cellulitis of left lower limb (principal); E87.1 Hypo-osmolality and hyponatremia; Z20.828 Contact with and (suspected) exposure to other viral communicable diseases; Z86.19 Personal history of other infectious and parasitic diseases; M10.9 Gout, unspecified; M19.072 Primary osteoarthritis, left ankle and foot; D64.9 Anemia, unspecified; I10 Essential (primary) hypertension; M85.80 Other specified disorders of bone density and structure, unspecified site; E87.6 Hypokalemia; Z85.3 Personal history of malignant neoplasm of breast; Z98.42 Cataract extraction status, left eye; Z98.41 Cataract extraction status, right eye; Z86.711 Personal history of pulmonary embolism; Z79.02 Long term (current) use of antithrombotics/antiplatelets
CPT/HCPCS: 36415; 71045; 73610; 73630; 80048; 80053; 83735; 83880; 84550; 85025; 85610; 85652; 85730; 86140; 86430; 87635; 93970; 96361; 96365; 96366; 96375; 97110; 97116; 97161; 97530; 99285; A9270; C9803; G0378; J0690; J2930; J7040; U0003

== ENCOUNTER 2020-10-21 14:42 | Outpatient (CLI) | payer MEDICARE, SELFPAY ==
--- NOTE | ~2020-10-21 | MM_ITS ---
EXAMINATION: MM screening taylor BI w artem HISTORY: Screening TECHNIQUE: Craniocaudal and mediolateral oblique 3-D tomosynthesis images were obtained and synthetic 2-D images were generated. CAD analysis was submitted and interpreted. COMPARISON: Comparison to multiple prior studies sequentially, with oldest reviewed study dated 09/02. BREAST PARENCHYMAL COMPOSITION: The breasts are heterogeneously dense, which may obscure small masses . FINDINGS: Stable architectural distortion upper outer quadrant of the right breast, consistent with p revious lumpectomy. There is no evidence of suspicious mass, calcification, or architectural distorti on to suggest malignancy in either breast. There has been no suspicious interval change. IMPRESSION: 1. No mammographic evidence of malignancy. 2. Recommend routine screening mammography in one year. BI-RADS Category 1: Negative Reviewed, dictated and finalized at location A.
== END 2020-10-21 14:43 | disposition home or self-care (01) ==
LOC: ANHIMG 14:46
PROVIDERS: PCP Internal Medicine Medical Oncology; Visit Provider Family Medicine
DX: Z12.31 Encounter for screening mammogram for malignant neoplasm of breast (principal)
CPT/HCPCS: 77063; 77067

== ENCOUNTER → 2021-04-25 02:31 | Outpatient (CLI) | payer MEDICARE, SELFPAY ==
[2021-04-25 16:36] LABS: SARS-CoV-2 RNA PCR Negative
== END ==
PROVIDERS: PCP Family Medicine; Visit Provider Physician Assistant
DX: R05.9 Cough, unspecified (principal); Z20.822 Contact with and (suspected) exposure to COVID-19
CPT/HCPCS: C9803; U0003; U0005

== ENCOUNTER 2021-10-01 05:32 | Emergency (ER) | payer MEDICARE, SELFPAY ==
--- NOTE | ~2021-10-01 | CT_ITS ---
EXAMINATION: CT abdomen pelvis wo con DATE: 10/01/2021 06:04 INDICATION: Left flank pain. TECHNIQUE: Computed tomography (CT) of the abdomen and pelvis was performed without intravenous contr ast. Automated exposure control and iterative reconstruction technique were employed. The dose-length product was 754.71 mGy-cm. COMPARISON: Chest CT 02/13/2020 FINDINGS: The visualized portions of the lung bases demonstrate mild atelectasis and mild chronic roberta g disease. Calcified bilateral lung nodules and calcified hilar lymph nodes are consistent with old g ranulomatous disease. No pleural effusion. The heart size is normal. There is a small pericardial eff usion. There is a large sliding hiatal hernia that contains the majority of the stomach and much of t he pancreas. There is a 3.5 cm mass in right breast. There are cysts in the liver measuring up to 1.4 cm. Calcifications in the liver and spleen are consistent with old granulomatous disease. The gallbl adder is normal in size. The adrenal glands are normal. There is cortical thinning of the kidneys. Th ere are cysts in the kidneys measuring up to 15 mm on the left. There are three 1-2 mm stones in righ t kidney. There are two stones in left kidney with the larger measuring 8 mm. There is an umbilical h ernia containing fat. There are is prominent fat in the inguinal canals that may be hernias. There is diverticulosis of the colon without evidence of diverticulitis. The appendix is normal. There are no dilated loops of bowel. There are no pathologically enlarged lymph nodes. There is trace pelvic asci benjamin. Pelvic floor relaxation is noted. There is thoracolumbar dextroscoliosis and severe spondylosis. IMPRESSION: 1. 3.5 cm right breast mass, consistent with primary malignancy. 2. Large sliding hiatal hernia. 3. Small pericardial effusion. 4. Bilateral nonobstructing kidney stones. 5. Umbilical hernia containing fat. Reviewed, dictated and finalized at location A.
[2021-10-01 05:39] VITALS: BP 150/85; PULSE 73; RESP 18; TEMP 36.8; O2SAT 97
--- NOTE | 2021-10-01 05:43 | ED.ABDPAIN ---
HPI - Abdominal Pain General Chief Complaint: Abdominal Pain Stated Complaint: ABD pain Time Seen by Provider: 10/01/21 05:36 Source: patient Mode of arrival: ambulatory Limitations: no limitations History of Present Illness HPI narrative: Pt presents with left flank and LUQ abdominal pain since 11am yesterday. Pt says it was intermittent at first but has been constant for hours. Pt denies fever or urinary symptoms. MD elicited complaint: abdominal pain Pain Consistency: constant Location: LUQ and L flank Severity: moderate Quality: aching Radiation: none Migration to: no migration Exacerbating factors: nothing Relieving factors: nothing Related Data Home Medications Medication Instructions Recorded Confirmed calcium carbonate 600 mg-vitamin tablet PO 09/04/20 04/25/21 D3 10 mcg (400 unit) chewable tablet cholecalciferol (vitamin D3) 50 50 mcg PO DAILY 09/04/20 04/25/21 mcg (2,000 unit) capsule Allergies Allergy/AdvReac Type Severity Reaction Status Date / Time nickel Allergy Mild itchiness Verified 03/12/21 14:37 Review of Systems Review of Systems: All systems reviewed & are unremarkable except as noted in HPI and below PMFSH Past Medical History Medical History Cancer of right breast (~2009) Status post lumpectomy and antiestrogen therapy. Chronic anemia COVID-19 (~02/02/20) Dyspnea on exertion Essential hypertension Osteopenia Pulmonary embolism (~02/2020) Surgical History Surgical History History of bilateral cataract extraction History of lumpectomy of right breast (~2009) For treatment of right breast cancer. Family History Family History Mother Appendicitis due to appendicitis and her 20 Father Family history of emphysema, Onset Age: 84 Social History Social History Social History: Mrs. Zamora lives with her in [place]. Her also had COVID-19 and he is currently undergoing rehab. They have 2 grown children. She retired from [employer]. She is a lifelong nonsmoker and denies alcohol and illicit substance use. Her Dick and 2 children are her surrogate decision makers. She wishes to be a full code, however she would not want to be on long-term life support. Second hand tobacco smoke exposure: No Alcohol intake: never Substance use: never Gender identity (if verbalized by the patient): Female Sexual Orientation (if Verbalized by the Patient): Straight or Heterosexual Spiritual care concerns: No Exam Const: General: no acute distress Orientation/consciousness: patient oriented x3 Chest: Chest palpation & inspection: normal inspection of the chest Resp: Effort & Inspection: normal respiratory effort Auscultation: clear to auscultation bilaterally Cardio: Rate: regular rate Rhythm: regular rhythm GI: GI Palp: Yes Soft to palpation and Yes Tenderness to palpation present (GI) (no tendrness to palpation) Auscultation: normal bowel sounds : General: Yes no CVA tenderness Skin: General skin exam: normal color Rashes: no rashes Neuro: General: patient oriented x3, moves all extremities and no focal motor deficits Speech: normal speech Extrem: General: normal to inspection and no clubbing, cyanosis or edema Psych: Appearance: grossly normal Mental Status: mental status grossly normal Thought content: Yes Normal thought content present Course Course Emergency Course: Vital Signs Vital signs: Vital Signs Temperature 98.3 F 10/01/21 05:39 Pulse Rate 73 10/01/21 05:39 Respiratory Rate 18 10/01/21 05:39 Blood Pressure 150/85 H 10/01/21 05:39 Pulse Oximetry 97 10/01/21 05:39 Temperature 98.3 F 10/01/21 05:39 Pulse Rate 58 L 10/01/21 06:51 Respiratory Rate 18
--- NOTE | 2021-10-01 05:47 | ECG_ITS ---
Measurements Intervals [place] Rate: 60 P: 19 CA: 184 QRS: -64 QRSD: 101 T: 1 QT: 420 QTc: 420 Interpretive Statements SINUS RHYTHM LEFT ANTERIOR FASCICULAR BLOCK [QRS AXIS <= -45, QR IN I, RS IN II] POOR R-WAVE PROGRESSION, CANNOT RULE OUT AN OLD ANTERIOR MYOCARDIAL INFARCTION COMPARED TO ECG 02/07/2020 15:13:13 NO SIGNIFICANT CHANGES Electronically Signed On 10-01-2021 13:45:22 CDT by Rona Tapia M.D.
[2021-10-01 05:57] LABS: Basophils Percent Auto 0.6 % (0.2-1.2); Eosinophils Absolute Auto 0.2 K/mm3 (0-0.3); Eosinophils Percent Auto 3.3 % (0-4.4); Hematocrit 41.6 % (37.0-47.0); Hemoglobin 13.3 g/dL (12.0-15.0); Immature Granulocyte Absolute 0.03 K/mm3 (0.00-0.031); Immature Granulocyte Percent A 0.6 % (0-0.5); Lymphocytes Absolute Auto 0.57 K/mm3 (0.9-3.2); Lymphocytes Percent Auto 10.9 % (18.3-44.2); Mean Corpuscular Volume 90.8 fl (80-100); Mean Platelet Volume 9.9 fl (7.4-10.4); Monocytes Absolute Auto 0.5 K/mm3 (0.1-0.6); Monocytes Percent Auto 10.4 % (2.6-8.5); Neutrophils Absolute Auto 3.9 K/mm3 (1.3-6.7); Neutrophils Percent Auto 74.2 % (45.5-73.1); Platelet Count Result 147 k/mm3 (150-375); Red Blood Count 4.58 M/mm3 (4.2-5.4); Red Cell Distribution Width 14.1 % (11.5-14.5); White Blood Count 5.2 K/mm3 (4.5-10.0)
[2021-10-01 06:03] LABS: Add Urine Microscopic? YES; Amorphous Sediment Urine Few; Appearance Urine Cloudy (Clear); Bilirubin Urine Negative (Negative); Blood Urine 1+ (Negative); Color Urine Yellow (Yellow); Glucose Urine UA Negative (Negative); Ketones Urine Negative (Negative); Leukocyte Esterase Ur 3+ LEU/UL (Negative); Mucus Urine Rare /lpf; Nitrate Urine Negative (Negative); Protein Urine Negative (Negative); Specific Grav Ur 1.015 (1.001-1.035); Squamous Epithelial Cell Urine Moderate /hpf (Few); Urobilinogen Urine Negative mg/dL (<2.0); WBC Urine 31-50 /hpf
[2021-10-01 06:09] LABS: Alanine Aminotransferase 14 U/L (4-35); Albumin Level 4.1 g/dL (3.5-5.1); Alkaline Phosphatase 57 U/L (38-126); Anion Gap 6 mmol/L (8-16); Aspartate Amino Transferase 20 U/L (14-36); Bilirubin,Total 1.1 mg/dL (0.2-1.3); Blood Urea Nitrogen 11 mg/dL (7-17); Calcium 9.2 mg/dL (8.4-10.2); Carbon Dioxide 22 mmol/L (22-30); Chloride 106 mmol/L (98-107); Estimated CRCL calculation 45 ml/min; Estimated Glomerular Filt Rate > 60; Glucose 142 mg/dL (65-110); Lipase 63 U/L (23-300); Potassium 3.7 mmol/L (3.4-5.0); Sodium 134 mmol/L (137-145)
[2021-10-01] MEDS: ONDANSETRON INJ 4 MG/2 ML VIAL IV PUSH (06:11)
[2021-10-01] MEDS: fentaNYL CITRATE INJ (*CRX) 100 MCG/2 ML VIAL 25 MCG IV PUSH (06:11)
[2021-10-01 06:21] LABS: Troponin I < 0.012 ng/mL (0.000-0.034)
[2021-10-01 06:51] VITALS: BP 110/67; PULSE 58; RESP 18; O2SAT 97
== END 2021-10-01 07:21 | disposition home or self-care (01) ==
PROVIDERS: Emergency Provider Emergency Medicine; PCP Family Medicine
DX: N10 Acute pyelonephritis (principal); N63.10 Unspecified lump in the right breast, unspecified quadrant; D64.9 Anemia, unspecified; I10 Essential (primary) hypertension; M85.80 Other specified disorders of bone density and structure, unspecified site; Z85.3 Personal history of malignant neoplasm of breast; Z86.16 Personal history of COVID-19; Z86.711 Personal history of pulmonary embolism; Z98.42 Cataract extraction status, left eye; Z98.41 Cataract extraction status, right eye; K44.9 Diaphragmatic hernia without obstruction or gangrene; N20.0 Calculus of kidney; K42.9 Umbilical hernia without obstruction or gangrene; Z79.82 Long term (current) use of aspirin
CPT/HCPCS: 36415; 74176; 80053; 81001; 83690; 84484; 85025; 87086; 87088; 93005; 96374; 96375; 99284; J2405; J3010

== ENCOUNTER 2021-10-13 12:04 | Outpatient (CLI) | payer MEDICARE, SELFPAY ==
--- NOTE | ~2021-10-13 | MMUS_ITS ---
EXAMINATION: MM diagnostic taylor BI w artem, US breast RT limited HISTORY: Abnormal right breast mass seen on recent CT examination. TECHNIQUE: Additional 3-D tomosynthesis images of the breasts were performed and synthetic 2-D images were generated. CAD analysis was submitted and interpreted. High resolution Limited right breast ult rasound was performed. COMPARISON: Comparison to multiple prior studies sequentially, with oldest reviewed study dated 08/28. BREAST PARENCHYMAL COMPOSITION: Breast composed of scattered areas of fibroglandular density FINDINGS: MAMMOGRAPHIC FINDINGS: The breasts are stable. No significant change to architectural distortion in the upper outer quadrant of the right breast, consistent with previous lumpectomy site. No new masses, calcifications or arch itectural distortion in either breast to suggest malignancy. ULTRASOUND: Limited right breast ultrasound: In the area of palpable concern in the right breast at 7-8:00 positi on there is a heterogeneous hypoechoic mass with internal cystic changes measuring 3.7 x 1.9 x 3.3 cm . There is internal vascularity. There is posterior acoustic enhancement. IMPRESSION: 1. Complex predominantly hypoechoic mass of the right breast at 7-8:00 position measuring 3.7 x 1.9 x 3.3 cm. This mass is not identified by mammography, likely due to its posterior and inferior placeme nt. 2. Ultrasound-guided right breast biopsy recommended. BI-RADS category 4, suspicious findings. Reviewed, dictated and finalized at location A. IMPRESSION: 1. Complex predominantly hypoechoic mass of the right breast at 7-8:00 position measuring 3.7 x 1.9 x 3.3 cm. This mass is not identified by mammography, like ly due to its posterior and inferior placement. 2. Ultrasound-guided right breast biopsy recommended. BI-RADS category 4, suspicious findings.
== END 2021-10-13 12:05 | disposition home or self-care (01) ==
LOC: ANHIMG 12:04
PROVIDERS: PCP Family Medicine; Visit Provider Physician Assistant Medical
DX: N63.10 Unspecified lump in the right breast, unspecified quadrant (principal); R92.8 Other abnormal and inconclusive findings on diagnostic imaging of breast
CPT/HCPCS: 76642; 77062; 77066; G0279

== ENCOUNTER 2022-05-16 09:50 | Emergency (ER) | payer MEDICARE, SELFPAY ==
--- NOTE | ~2022-05-16 | XR_ITS ---
EXAMINATION: CT abdomen pelvis wo con, XR abdomen/kub 1V DATE: 05/16/2022 10:28 INDICATION: Right flank and lower abdominal pain. TECHNIQUE: 1. Computed tomography (CT) of the abdomen and pelvis was performed without intravenous contrast. The dose-length product was 725.83 mGy-cm. 2. AP view of the abdomen and pelvis was obtained on 2 radiographs. COMPARISON: CT studies dated 10/01/2021 and 02/13/2020 FINDINGS: CT: Subtle solid nodule groundglass component which measures 2.3 cm in maximal diameter which is new sinc e 10/01/2021 and with enlargement of an eccentric 7 mm solid component which measured 4-[address] udy from 10/01/2021. A few small bilateral calcified pulmonary nodules and a few tiny hepatic and sple chela calcifications consistent with old granulomatous disease. Compressive atelectasis in the bilatera l lower lobes along side a large hiatal hernia which contains the entire stomach, the normal pancreas and short segment of the nonobstructed transverse colon. Cardiomegaly with small pericardial effusio n. 3.5 x 2.3 cm nodule at the right breast which is increased in size since 2019 and for which biopsy wa s recommended following breast ultrasound dated 10/23/2021. 1 cm hepatic cyst. Gallbladder is normal. 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 9 x 4 m m obstructing stone at the right ureterovesicular junction with moderate right hydroureteronephrosis. 2 additional tiny stones in the right kidney. There are couple nonobstructing left renal stones the largest in the interpolar region measuring 8 mm and the smaller at the lower pole measuring 5 mm. Ext ensive diverticulosis of the colon without evidence of diverticulitis. Normal appendix. No bowel obst ruction. Small fat-containing umbilical hernia. Decompressed bladder, uterus and bilateral adnexa are unremarkable. No free intraperitoneal gas or fluid. No pathologically enlarged thoracolumbar dextros coliosis with severe spondylosis. lymphadenopathy. KUB: The relatively large obstructing stone at the right ureterovesicular junction is subtly visible on th e plain radiographs have significantly lower density than the multiple phleboliths in the pelvis. The additional stones at both kidneys were unable to be clearly distinguished. IMPRESSION: 1. Bilateral nephrolithiasis with obstructing 9 x 4 mm stone at the right ureterovesicular junction r esulting in moderate right hydroureteronephrosis. 2. 3.5 cm right breast mass concerning for primary breast cancer. A breast ultrasound was also recomm ended on 10/13/2021. Unclear whether this has been performed. 3. 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 CT-guided percutaneous biopsy would be recommended. 4. Large hiatal hernia containing the stomach, pancreas and short segment of the nonobstructed transv erse colon. 5. Cardiomegaly with small pericardial effusion. 6. Small fat-containing umbilical hernia. 7. 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 Reviewed, dictated and finalized at location A. C4 PLANNER IMPRESSION: 1. Bilateral nephrolithiasis with obstructing 9 x 4 mm stone at the right urete rovesicular junction resulting in moderate right hydroureteronephrosis. 2. 3.5 cm right breast mass concerning for primary breast cancer. A breast ultr asound was also recommended on 10/13/2021. Unclear whether this has been performe d.
[2022-05-16 10:02] VITALS: BP 175/84; PULSE 66; RESP 15; TEMP 36.5; O2SAT 99
[2022-05-16 10:10] LABS: Basophils Percent Auto 0.2 % (0.2-1.2); Eosinophils Percent Auto 0.1 % (0-4.4); Hematocrit 41.3 % (37.0-47.0); Hemoglobin 13.6 g/dL (12.0-15.0); Immature Granulocyte Absolute 0.04 K/mm3 (0.00-0.031); Immature Granulocyte Percent A 0.4 % (0-0.5); Lymphocytes Absolute Auto 0.82 K/mm3 (0.9-3.2); Lymphocytes Percent Auto 9.1 % (18.3-44.2); Mean Corpuscular HGB Conc 32.9 g/dl (32-36); Mean Corpuscular Hemoglobin 29.2 pg (26-34); Mean Corpuscular Volume 88.6 fl (80-100); Mean Platelet Volume 9.5 fl (7.4-10.4); Monocytes Absolute Auto 0.5 K/mm3 (0.1-0.6); Monocytes Percent Auto 5.9 % (2.6-8.5); Neutrophils Absolute Auto 7.6 K/mm3 (1.3-6.7); Neutrophils Percent Auto 84.3 % (45.5-73.1); Platelet Count Result 189 k/mm3 (150-375); Red Blood Count 4.66 M/mm3 (4.2-5.4); Red Cell Distribution Width 13.7 % (11.5-14.5)
[2022-05-16 10:25] LABS: Alanine Aminotransferase 18 U/L (6-35); Albumin Level 4.6 g/dL (3.5-5.1); Alkaline Phosphatase 56 U/L (38-126); Anion Gap 9 mmol/L (8-16); Aspartate Amino Transferase 24 U/L (14-36); Blood Urea Nitrogen 18 mg/dL (7-17); Calcium 9.6 mg/dL (8.4-10.2); Carbon Dioxide 23 mmol/L (22-30); Chloride 103 mmol/L (98-107); Estimated Glomerular Filt Rate 47; Glucose 135 mg/dL (65-110); Lipase 34 U/L (23-300); Potassium 4.3 mmol/L (3.4-5.0); Sodium 135 mmol/L (137-145)
[2022-05-16 10:36] LABS: Appearance Urine Clear (Clear); Bilirubin Urine Negative (Negative); Blood Urine 2+ (Negative); Color Urine Yellow (Yellow); Glucose Urine UA Negative (Negative); Ketones Urine Negative (Negative); Leukocyte Esterase Ur Trace LEU/UL (Negative); Nitrate Urine Negative (Negative); Protein Urine 1+ mg/dL (Negative); Urobilinogen Urine 0.2 mg/dL (<2.0); pH Urine 7.5 (5.0-9.0)
[2022-05-16 10:37] LABS: RBC Urine 51-75 /hpf (0-2); Squamous Epithelial Cell Urine Rare /hpf (Few)
[2022-05-16 10:38] LABS: Add Urine Microscopic? YES
[2022-05-16] MEDS: ONDANSETRON INJ 4 MG/2 ML VIAL IV PUSH ×2 (10:42→15:07)
[2022-05-16] MEDS: SODIUM CHLORIDE 0.9% IV 1,000 ML 999 ML IV CONT (10:47)
--- NOTE | 2022-05-16 11:06 | ED.FEMALEGU ---
HPI - Female Genitourinary General Chief complaint: Urogenital-Female Stated complaint: kidney stone? Time Seen by Provider: 05/16/22 10:00 Source: patient, family, RN notes reviewed and old records reviewed Mode of arrival: ambulatory Limitations: no limitations History of Present Illness HPI Narrative: This is an 86 year old female with history of kidney stone who presents for evaluation right side abdominal pain and back pain. She developed pain last night . She reports her pain is moving from her right back to right upper and lower abdomen. This pain is intermittent, and when asked to describe pain, she states it just hurts. She has nausea without vomiting. She denies fever, chills or diarrhea. She has been taking tramadol for her pain. She took 50 mg tramadol at 2 am and another dose at 6 am this morning. She denies having any pain now. She states her pain is likely due to a kidney stone. She is also reporting increased urinary frequent over night. Denies dysuria or hematuria. MD elicited complaint: vaginal bleeding Related Data Home Medications Medication Instructions Recorded Confirmed calcium carbonate 600 mg-vitamin tablet PO 09/04/20 04/25/21 D3 10 mcg (400 unit) chewable tablet (Calcium 600 with Vitamin D3) cholecalciferol (vitamin D3) 50 50 mcg PO DAILY 09/04/20 04/25/21 mcg (2,000 unit) capsule Allergies Allergy/AdvReac Type Severity Reaction Status Date / Time nickel Allergy Mild itchiness Verified 10/08/21 10:17 Review of Systems Review of Systems: All systems reviewed & are unremarkable except as noted in HPI and below Constitutional: Constitutional: Denies chills and Denies fatigue Cardiovascular: Cardiovascular: Denies chest pain and Denies radiating jaw, neck or arm pain Respiratory: Respiratory: Denies chest congestion, Denies cough and Denies dyspnea Gastrointestinal: Gastrointestinal: Reports abdominal pain, Denies diarrhea, Reports nausea and Denies vomiting Genitourinary: Genitourinary: Denies hematuria, Reports nocturia, Denies dysuria and Reports flank pain Musculoskeletal: Musculoskeletal: Reports back pain PMFSH Past Medical History Medical History Breast mass, right Cancer of right breast (~2009) Status post lumpectomy and antiestrogen therapy. Chronic anemia COVID-19 (~02/02/20) Dyspnea on exertion Essential hypertension Osteopenia Pulmonary embolism (~02/2020) Surgical History Surgical History History of bilateral cataract extraction History of lumpectomy of right breast (~2009) For treatment of right breast cancer. Family History Family History Mother Appendicitis due to appendicitis and her 20 Father Family history of emphysema, Onset Age: 84 Social History Social History Social History: Mrs. Zamora lives with her in [place]. Her also had COVID-19 and he is currently undergoing rehab. They have 2 grown children. She retired from [employer]. She is a lifelong nonsmoker and denies alcohol and illicit substance use. Her Dick and 2 children are her surrogate decision makers. She wishes to be a full code, however she would not want to be on long-term life support. Second hand tobacco smoke exposure: No Alcohol intake: never Substance use: never Gender identity (if verbalized by the patient): Female Sexual Orientation (if Verbalized by the Patient): Straight or Heterosexual Spiritual care concerns: No Exam Const: General: no acute distress and alert Nutritional Appearance: well nourished Orientation/consciousness: patient oriented x3 Limitations: no limitations HENMT: Head: normal to inspection Throat: posterior oropharynx normal Eyes: Conjunctivae: conjunctiv
[2022-05-16 11:15] VITALS: BP 199/81; PULSE 65; RESP 17; O2SAT 98
[2022-05-16 12:30] VITALS: BP 191/87; PULSE 66; RESP 17; O2SAT 96
[2022-05-16 12:44] VITALS: PULSE 66
[2022-05-16] MEDS: LABETALOL HCL 100 MG TABLET PO (12:44)
[2022-05-16] MEDS: HYDROmorphone HCL INJ (*CRX) 1 MG/ML SYR 0.5 MG IV PUSH (12:44)
[2022-05-16] MEDS: hydrALAZINE 10 MG TABLET PO (12:44)
[2022-05-16] MEDS: amLODIPine BESYLATE 5 MG TABLET PO (12:44)
[2022-05-16] MEDS: TAMSULOSIN HCL 0.4 MG CAPSULE PO (12:49)
[2022-05-16 13:00] VITALS: BP 172/74; PULSE 65; RESP 14
[2022-05-16 14:00] VITALS: BP 149/77; PULSE 61; RESP 13; O2SAT 94
[2022-05-16 14:17] LABS: Influenza A QL RT-PCR Negative (Negative); Influenza B QL RT-PCR Negative (Negative); SARS-CoV-2 RNA PCR Negative
== END 2022-05-16 17:09 | disposition home or self-care (01) ==
PROVIDERS: Emergency Provider General Practice; PCP Family Medicine
DX: N20.2 Calculus of kidney with calculus of ureter (principal); N63.0 Unspecified lump in unspecified breast; R91.8 Other nonspecific abnormal finding of lung field; I10 Essential (primary) hypertension; Z85.3 Personal history of malignant neoplasm of breast; Z20.822 Contact with and (suspected) exposure to COVID-19
CPT/HCPCS: 36415; 74018; 74176; 80053; 81001; 83690; 85025; 87086; 87088; 87636; 96361; 96374; 96375; 96376; 99284; A9270; J1170; J2405; J7030

== ENCOUNTER 2022-05-21 16:04 | Outpatient (CLI) | payer MEDICARE, SELFPAY ==
--- NOTE | ~2022-05-21 | XR_ITS ---
Supine and upright views of the abdomen Clinical history: Right ureteral stone Findings: Bowel gas pattern is nonspecific. No evidence for obstruction or free air. No definite ston e seen along the course the right ureter, there is extensive stool, which somewhat limits evaluation. Round eggshell calcification noted in the left upper quadrant could reflect splenic artery aneurysm. Questionable left renal stones. Multiple pelvic phleboliths noted. There is dextro scoliosis of the lumbar spine with associated mild degenerative changes throughout the lumbar spine. Impression: No definite distal right ureteral stone. Multiple pelvic phleboliths. Suspected left renal stones and splenic artery aneurysm. Reviewed, dictated and finalized at location [] PROCESSING SYSTEMS CONSULTANT Impression: No definite distal right ureteral stone. Multiple pelvic phleboliths. Suspected left renal stones and splenic artery aneurysm.
--- NOTE | ~2022-05-21 | CT_ITS ---
EXAMINATION: CT diagnostic chest wo con DATE: 05/21/2022 16:39 INDICATION: lung nodule enlarging TECHNIQUE: Computed tomography (CT) of the chest was performed without intravenous contrast. Addition al 3D reconstructions utilizing coronal maximum intensity projection (MIP) were performed. Automated exposure control and iterative reconstruction technique were employed. The dose-length product was 11 8.01 mGy-cm. COMPARISON: Chest CT dated 02/13/[address] abdomen and pelvis dated 10/01/2021 FINDINGS: Near complete resolution of the prior extensive bilateral lung disease seen on the prior chest CT whi ch likely represented COVID pneumonia with some mild residual peripheral scarring. In the current freedom dy there are multiple bilateral pulmonary nodules. There are 7 in the right upper lobe measuring 6 mm on image 28, 10 mm on image 31, 8 mm on image 38, 7 mm on image 39, 5 mm on image 47 and 5 mm and 9 mm on image 53. There is a 12 mm left upper lobe nodule on image 55 and a 7 mm nodule within a 2.5 cm ill-defined region of groundglass opacity in the left lower lobe on image 73. On the earlier chest C T there is a 2-3 mm nodule within a region of groundglass opacity in the right apex corresponding in location to the current 6 mm nodule on image 28. There is a 3-4 mm nodule at the periphery of a regio n of lung disease in the left upper lobe corresponding in location to the 12 mm nodule currently on i mage 55. The location of the remaining nodules are significantly effected by the likely COVID pneumon ia on the prior study limiting assessment is unclear whether there were no corresponding nodules at t hese locations on the prior study. The 7 mm left lower lobe nodule within the region of ground glass opacity has increased in size since the more recent CT of the abdomen and pelvis on 10/01/2021 at [facility] h time it measured 4-5 mm. The growth of a few of the nodules is concerning for malignancy and with t he multiplicity and relatively smooth lobular margins favoring metastatic disease. There are multiple bilateral calcified pulmonary nodules along with calcified bilateral hilar and mediastinal lymph nod es consistent with old granulomatous disease. Mild cardiomegaly. Lipomatous hypertrophy of the atrial septum. Aortic valve calcification and athero sclerotic coronary artery calcification. Small pericardial effusion. Large hiatal hernia containing n early the entire stomach as well as the pancreatic body and tail. Thoracic aorta is normal in caliber . No pathologically enlarged thoracic lymphadenopathy. Again noted is an enlarging right breast mass currently measuring 3.5 x 2.5 cm, increased from 2.4 x 1.3 cm on study performed 02/13/2020 which is co ncerning for primary breast cancer. 1 cm rim calcified splenic artery aneurysm and adjacent 1.4 cm no dule at the splenic hilum which could represent either an additional aneurysm or small splenule. Mild thoracolumbar dextro scoliosis with severe spondylosis. Chronic mild compression fracture inferior e ndplate of T8 with 20% central vertebral body height loss. Bilateral rotator cuff calcific tendinitis . No suspicious lytic or blastic bone lesions. IMPRESSION: 1. Multiple 5-12 mm bilateral pulmonary nodules, a few of which appear to demonstrate interval growth is concerning for malignancy with multiplicity and morphology of the nodules favoring metastatic dis ease. 2. Enlarging now 3.5 x 2.5 cm right breast mass which is concerning for breast cancer for which ultra sound-guided breast biopsy was recommended on 10/23/2021. No record of biopsy having been performed at this institution and would correlate for history of biopsy at any outside institution. Otherwise thi s would be recommended. 3. Mild residual scarring at the periphery of both lungs likely related to earlier COVID pneumonia. 4. Large hiatal hernia containing the majority the stomach and body and tail the pancreas. 5. Mild
== END 2022-05-21 16:05 | disposition home or self-care (01) ==
PROVIDERS: PCP Family Medicine; Visit Provider Nurse Practitioner Adult Health
DX: R91.1 Solitary pulmonary nodule (principal); N20.1 Calculus of ureter; K44.9 Diaphragmatic hernia without obstruction or gangrene; I51.7 Cardiomegaly; I31.39 Other pericardial effusion (noninflammatory)
CPT/HCPCS: 71250; 74018

== ENCOUNTER 2022-08-29 11:20 | Outpatient (CLI) | payer MEDICARE, SELFPAY ==
--- NOTE | ~2022-08-29 | CT_ITS ---
EXAMINATION: CT diagnostic chest wo con DATE: 08/29/2022 12:11 INDICATION: Pulmonary nodule follow-up TECHNIQUE: Computed tomography (CT) of the chest was performed without intravenous contrast. Automate d exposure control and iterative reconstruction technique were employed. Exam dose: 154.52 mGy-cm to tonja exam DLP. COMPARISON: 05/21/2022 CT chest FINDINGS: Approximately 3 x 3.7 cm mass is noted at the posterior lower outer quadrant of the right b reast near the chest wall, slightly increased in size since 05/21/2022. Breast carcinoma is suspected . Small pericardial effusion. Cardiomegaly. Thoracic aortic, great vessel and coronary artery calcifica tion. No thoracic aortic aneurysm. Calcified mediastinal and bilateral hilar nodes and bilateral calcified pulmonary granulomas, consist ent with old pulmonary granulomatous disease. No hilar or mediastinal mass lesion or lymphadenopathy is evident. Multiple bilateral pulmonary nodular densities again noted, relatively stable compared to 05/21/2022, suggesting pulmonary metastatic disease. There is a chronic large hiatal hernia containing entire stomach, portion of the pancreas and transve rse colon, without evidence of strangulation or obstruction. Approximately 12 mm hepatic dome cyst. Normal morphology of the adrenal glands. Bilateral nephrolithiasis. Mild T8 compression fracture, stable since 05/21/2022. Degenerative disc disease at the lower cervical spine. Thoracolumbar dextroscoliosis. Degenerative ch anges of the thoracic and particularly the lumbar spine where there is severe multilevel degenerative disc disease. IMPRESSION: Slightly increased size of right lower outer quadrant posterior right breast mass. Chest wall since 05/21/20202021, very suspicious for breast carcinoma Multiple bilateral pulmonary masses suggestive of pulmonary metastatic disease particularly little in terval change since 05/21/2022 Reviewed, dictated and finalized at [facility]. Reviewed, dictated and finalized at [facility]. IMPRESSION: Slightly increased size of right lower outer quadrant posterior ri ght breast mass. Chest wall since 05/21/20202021, very suspicious for breast c arcinoma Multiple bilateral pulmonary masses suggestive of pulmonary metastatic disease particularly little interval change since 05/21/2022
== END 2022-08-29 11:21 | disposition home or self-care (01) ==
PROVIDERS: PCP Family Medicine; Visit Provider Family Medicine
DX: R91.1 Solitary pulmonary nodule (principal); R91.8 Other nonspecific abnormal finding of lung field
CPT/HCPCS: 71250

== ENCOUNTER → 2022-12-03 13:44 | Outpatient (CLI) | payer MEDICARE, SELFPAY ==
--- NOTE | ~2022-12-03 | CT_ITS ---
EXAMINATION: CT diagnostic chest wo con DATE: 12/03/2022 14:03 INDICATION: Pulmonary nodules, history of breast cancer TECHNIQUE: Computed tomography (CT) of the chest was performed without intravenous contrast. The dose -length product (DLP) was 127.58 mGy-cm. Automated exposure control and iterative reconstruction tech [employer] were employed. COMPARISON: 08/29/2022, 05/21/2022 FINDINGS: The previously described groundglass nodule of the left lower lobe has resolved. There are scattered nodules throughout the lungs which measure up to 9 mm in the left upper lobe and are stable to slightly decreased in size. There are areas of mild scarring and atelectasis of the lungs. No ple ural effusion or pneumothorax. There is a 3.3 cm right breast mass. Cardiomegaly is noted. There is a large hiatal hernia containing the stomach and nonobstructed segments of large and small bowel. IMPRESSION: 1. Multiple pulmonary nodules, stable slightly decreased in size, suspicious for metastatic disease. 2. Right breast mass without significant change, probable breast malignancy. Reviewed, dictated and finalized at [facility]. IMPRESSION: 1. Multiple pulmonary nodules, stable slightly decreased in size, suspicious fo r metastatic disease. 2. Right breast mass without significant change, probable breast malignancy.
== END ==
PROVIDERS: PCP Family Medicine; Visit Provider Internal Medicine Medical Oncology
DX: C50.511 Malignant neoplasm of lower-outer quadrant of right female breast (principal); Z17.0 Estrogen receptor positive status [ER+]; R91.8 Other nonspecific abnormal finding of lung field
CPT/HCPCS: 71250

== ENCOUNTER → 2023-02-24 14:31 | Outpatient (CLI) | payer MEDICARE, SELFPAY ==
--- NOTE | ~2023-02-24 | CT_ITS ---
CT Scan of the Chest without Contrast: Clinical Indication: Breast cancer, lung nodule Technique: Contiguous sections were acquired throughout the chest without intravenous contrast. Dose reduction technique was used on this scan by utilizing automated exposure control and iterative recon struction technique. The dose-length product (DLP) was 381.70 mGy-cm. COMPARISON: 12/03/2022 Findings: There is no evidence of any significant mediastinal, hilar or axillary lymphadenopathy. Calcified med iastinal and hilar lymph nodes are present. Atherosclerotic calcifications of aorta are present. Larg e hiatal hernia is present, containing essentially the entire stomach, splenic flexure the colon, and the body and tail of the pancreas. There is a 3.8 x 3.0 cm mass at the lower, outer right breast, similar to prior exam (axial image 71) . There is no evidence of pleural or pericardial effusion. Multiple scattered pulmonary nodules are similar in size and distribution to prior exam, largest nodu le probably in the left upper lobe measuring 1 cm in diameter. Probable minimal, peripheral chronic i nterstitial changes are present in the lung. Images through the upper abdomen reveal no abnormalities. Stable mild compression deformity of T8. Impression: Multiple pulmonary nodules are similar to prior exam, as detailed above, compatible with metastatic d isease. 3.8 x 3.0 cm lower, outer right breast mass, similar to prior exam. This is suspicious for breast barbara plasm given history. Stable large hiatal hernia containing the entire stomach, splenic flexure the colon, and body and didier l of the pancreas. Stable mild compression deformity of T8. Reviewed, dictated and finalized at [facility]. Impression: Multiple pulmonary nodules are similar to prior exam, as detailed above, compat ible with metastatic disease. 3.8 x 3.0 cm lower, outer right breast mass, similar to prior exam. This is marcus picious for breast neoplasm given history. Stable large hiatal hernia containing the entire stomach, splenic flexure the c olon, and body and tail of the pancreas. Stable mild compression deformity of T8.
== END ==
PROVIDERS: PCP Internal Medicine Medical Oncology; Visit Provider Internal Medicine Medical Oncology
DX: C50.511 Malignant neoplasm of lower-outer quadrant of right female breast (principal); Z17.0 Estrogen receptor positive status [ER+]; K44.9 Diaphragmatic hernia without obstruction or gangrene; R91.8 Other nonspecific abnormal finding of lung field
CPT/HCPCS: 71250

== ENCOUNTER → 2023-05-07 15:09 | Outpatient (CLI) | payer MEDICARE, SELFPAY ==
--- NOTE | ~2023-05-07 | CT_ITS ---
EXAMINATION: CT diagnostic chest wo con DATE: 05/07/2023 15:46 INDICATION: Malignant neoplasm of the right breast. TECHNIQUE: Computed tomography (CT) of the chest was performed without intravenous contrast. The dose -length product was 390.14 mGy-cm. Automated exposure control and iterative reconstruction technique were employed. COMPARISON: CT dated 02/24/2023 FINDINGS: Small pericardial effusion. No significant pleural effusion. No thoracic lymphadenopathy. L arge hiatal hernia. There is atherosclerosis of the aorta and coronary arteries. There is chronic gra nulomatous disease. Stable 7 mm right upper lobe nodule. Stable 6 mm right upper lobe nodule, image 3 1. There is a stable 9 mm left upper lobe nodule, image 51. No new pulmonary nodules or masses. There is a right breast mass adjacent to the chest wall measuring 3.9 x 3 cm compared with 3.8 x 3 cm on p rior examination without significant change. There is adjacent distortion of the breast parenchyma. IMPRESSION: 1. Stable right breast mass and bilateral pulmonary nodules, consistent with known malignancy with me tastatic disease. Reviewed, dictated and finalized at location [facility]. BI ARCHITECT IMPRESSION: 1. Stable right breast mass and bilateral pulmonary nodules, consistent with kn own malignancy with metastatic disease.
== END ==
PROVIDERS: PCP Internal Medicine Medical Oncology; Visit Provider Internal Medicine Medical Oncology
DX: C50.511 Malignant neoplasm of lower-outer quadrant of right female breast (principal); Z17.0 Estrogen receptor positive status [ER+]; R91.8 Other nonspecific abnormal finding of lung field
CPT/HCPCS: 71250

== ENCOUNTER → 2023-07-28 15:39 | Outpatient (CLI) | payer MEDICARE, SELFPAY ==
--- NOTE | ~2023-07-28 | CT_ITS ---
CT Scan of the Chest without Contrast: Clinical Indication: Breast cancer Technique: Contiguous sections were acquired throughout the chest without intravenous contrast. Dose reduction technique was used on this scan by utilizing automated exposure control and iterative recon struction technique. The dose-length product (DLP) was 405.50 mGy-cm. COMPARISON: 05/07/2023 Findings: There is no evidence of any significant mediastinal, hilar or axillary lymphadenopathy. Calcified med iastinal lymph nodes are present. No aortic aneurysm. 3.7 x 2.5 cm right breast mass is present, similar to prior exam. There is no evidence of pleural or pericardial effusion. Multiple pulmonary nodules are similar to prior exam, largest in the left upper lobe measuring 9 mm. There are new areas of groundglass opacity about some of the pulmonary nodules. Images through the upper abdomen reveal very large hiatal hernia, containing essentially entire stoma ch with probable organoaxial volvulus, as well as the pancreatic body and tail. There is a 12 mm dens arturo calcified splenic artery aneurysm near the spinal column. Impression: Bilateral pulmonary nodules are essentially unchanged, compatible with pulmonary metastatic disease. New areas of groundglass opacity surrounding several of the pulmonary nodules. Minimal pulmonary hemo rrhage is a consideration, versus possible infection. Stable right breast mass, consistent with history of breast cancer. Large hiatal hernia containing the entire stomach and pancreatic body/tail, as detailed above. Reviewed, dictated and finalized at [facility]. OR MANAGEMENT CONSULTANT Impression: Bilateral pulmonary nodules are essentially unchanged, compatible with pulmonar y metastatic disease. New areas of groundglass opacity surrounding several of the pulmonary nodules. Minimal pulmonary hemorrhage is a consideration, versus possible infection. Stable right breast mass, consistent with history of breast cancer. Large hiatal hernia containing the entire stomach and pancreatic body/tail, as detailed above.
== END ==
PROVIDERS: PCP Family Medicine; Visit Provider Internal Medicine Medical Oncology
DX: C50.511 Malignant neoplasm of lower-outer quadrant of right female breast (principal); Z17.0 Estrogen receptor positive status [ER+]; C78.00 Secondary malignant neoplasm of unspecified lung; K44.9 Diaphragmatic hernia without obstruction or gangrene; R91.8 Other nonspecific abnormal finding of lung field
CPT/HCPCS: 71250

== ENCOUNTER 2023-09-16 15:11 | Emergency (ER) | payer MEDICARE, SELFPAY ==
[2023-09-16] VITALS (15 sets, daily range): BP systolic 136–237; BP diastolic 63–97; PULSE 54–85; RESP 12–22; TEMP 36.3; O2SAT 97–100
--- NOTE | ~2023-09-16 | XR_ITS ---
XR chest 2V 09/16/2023 16:09 Indication: Shortness of breath Procedure: 2 view chest Comparison: No prior studies for comparison. Findings: Cardiomegaly. Large hiatal hernia. There are scattered calcified granulomas. No focal air s pace disease, pulmonary edema, pleural effusion or suspected pneumothorax. Dextroscoliosis with moder ate thoracic spondylosis. Impression: 1: No acute cardiopulmonary disease. 2: Large hiatal hernia. Reviewed, dictated and finalized at location [facility]. Impression: 1: No acute cardiopulmonary disease. 2: Large hiatal hernia.
--- NOTE | 2023-09-16 15:22 | ECG_ITS ---
SEE SCANNED COPY FOR CONFIRMED REPORT MTDD
[2023-09-16 15:49] LABS: Basophils Percent Auto 0.3 % (0.2-1.2); Eosinophils Absolute Auto 0.3 K/mm3 (0-0.3); Eosinophils Percent Auto 4.1 % (0-4.4); Hematocrit 38.4 % (37.0-47.0); Hemoglobin 12.2 g/dL (12.0-15.0); Immature Granulocyte Absolute 0.02 K/mm3 (0.00-0.031); Immature Granulocyte Percent A 0.3 % (0-0.5); Lymphocytes Absolute Auto 1.56 K/mm3 (0.9-3.2); Lymphocytes Percent Auto 25.7 % (18.3-44.2); Mean Corpuscular HGB Conc 31.8 g/dl (32-36); Mean Corpuscular Hemoglobin 30.8 pg (26-34); Monocytes Absolute Auto 0.5 K/mm3 (0.1-0.6); Monocytes Percent Auto 8.4 % (2.6-8.5); Neutrophils Absolute Auto 3.7 K/mm3 (1.3-6.7); Neutrophils Percent Auto 61.2 % (45.5-73.1); Platelet Count Result 198 k/mm3 (150-375); Red Blood Count 3.96 M/mm3 (4.2-5.4); White Blood Count 6.1 K/mm3 (4.5-10.0)
[2023-09-16 16:06] LABS: Alanine Aminotransferase 12 U/L (6-35); Albumin Level 4.4 g/dL (3.5-5.1); Alkaline Phosphatase 59 U/L (38-126); Anion Gap 9 mmol/L (4-12); Aspartate Amino Transferase 18 U/L (14-36); Bilirubin,Total 0.8 mg/dL (0.2-1.3); Blood Urea Nitrogen 18 mg/dL (7-17); Calcium 10.1 mg/dL (8.4-10.2); Carbon Dioxide 23 mmol/L (22-30); Chloride 104 mmol/L (98-107); Estimated CRCL calculation 40 ml/min; Estimated Glomerular Filt Rate 59; Glucose 110 mg/dL (65-110); Potassium 3.7 mmol/L (3.4-5.0); Sodium 136 mmol/L (137-145)
--- NOTE | 2023-09-16 17:07 | ED.GENADULT ---
HPI - General Adult General Chief complaint: Shortness of Breath/Dyspnea Stated complaint: sob, tingling, htn Time Seen by Provider: 09/16/23 16:27 History of Present Illness HPI narrative: patient is assist 88-year-old female who presents ER with elevated blood pressures from her eye doctor's office. Reports she was having her eyes dilated of when she was being short of breath and her fingers were tingling in her hand on left side. This happens to her with relative frequency over last couple of years. She reports over last week she has had occasional shortness of breath while at rest which is new for her. She is almost always short of breath with exertion. She reports her blood pressure runs in the 170s systolic and she has already taken her blood pressure medication today. No chest pain or pressure. Related Data Home Medications Medication Instructions Recorded Confirmed calcium carbonate 600 mg-vitamin tablet PO 09/04/20 05/12/23 D3 10 mcg (400 unit) chewable tablet (Calcium 600 with Vitamin D3) cholecalciferol (vitamin D3) 50 50 mcg PO DAILY 09/04/20 05/12/23 mcg (2,000 unit) capsule anastrozole 1 mg tablet 1 mg PO DAILY 01/27/23 05/12/23 palbociclib 75 mg capsule (Ibrance) 75 mg PO DAILY 01/27/23 05/12/23 Allergies Allergy/AdvReac Type Severity Reaction Status Date / Time nickel Allergy Mild itchiness Verified 05/12/23 15:27 Review of Systems Review of Systems: All systems reviewed & are unremarkable except as noted in HPI and below Constitutional: Constitutional: Reports no additional constitutional complaints ENT: Reports system reviewed and no additional complaints, except as documented Cardiovascular: Cardiovascular: Reports no additional cardiovascular complaints Respiratory: Respiratory: Denies cough, Reports dyspnea and Denies wheezing Gastrointestinal: Gastrointestinal: Reports no additional gastrointestinal complaints Musculoskeletal: Musculoskeletal: Reports no additional musculoskeletal complaints Neurologic: Denies headache(s), Denies focal weakness and Denies numbness Comments: hand tingling PMFSH Past Medical History Medical History Breast mass, right Cancer of right breast (~2009) Status post lumpectomy and antiestrogen therapy. Chronic anemia COVID-19 (~02/02/20) Dyspnea on exertion Essential hypertension Osteopenia Pulmonary embolism (~02/2020) Surgical History Surgical History History of bilateral cataract extraction History of lumpectomy of right breast (~2009) For treatment of right breast cancer. Family History Family History Mother Appendicitis due to appendicitis and her 20 Father Family history of emphysema, Onset Age: 84 Social History Social History Social History: Mrs. Zamora lives with her in [place]. Her also had COVID-19 and he is currently undergoing rehab. They have 2 grown children. She retired from [employer]. She is a lifelong nonsmoker and denies alcohol and illicit substance use. Her Dick and 2 children are her surrogate decision makers. She wishes to be a full code, however she would not want to be on long-term life support. Smoking status: Never smoker Second hand tobacco smoke exposure: No Alcohol intake: never Substance use: never Substance use type: does not use Lack of Transportation: No Lack of Food: Never True Current Housing: I Have Housing Concerned About Future Housing: No Difficulty Paying Gas/Electric Bills: No Difficulty Paying for Meds: No Currently Unemployed: No Education: High School Diploma/GED Difficulty w/ Childcare or Family Care: No Occupation/Education: retired Gender identi
[2023-09-16] MEDS: hydrALAZINE HCL 20 MG/ML VIAL 10 MG IV PUSH ×2 (17:23→17:49)
[2023-09-16 20:11] LABS: Prothrombin Time 13.9 Seconds (11.1-14.7)
[2023-09-16 20:12] LABS: Partial Thromboplastin Time 29.2 Seconds (22.3-36.8); Troponin I < 0.012 ng/mL (0.000-0.034)
== END 2023-09-16 19:49 | disposition home or self-care (01) ==
PROVIDERS: Emergency Provider Emergency Medicine; PCP Family Medicine
DX: I10 Essential (primary) hypertension (principal); D64.9 Anemia, unspecified; M85.80 Other specified disorders of bone density and structure, unspecified site; Z85.3 Personal history of malignant neoplasm of breast; Z86.16 Personal history of COVID-19; Z86.711 Personal history of pulmonary embolism; Z98.42 Cataract extraction status, left eye; Z98.41 Cataract extraction status, right eye; K44.9 Diaphragmatic hernia without obstruction or gangrene
CPT/HCPCS: 36415; 71046; 80053; 84484; 85025; 85610; 85730; 93005; 96374; 99284; J0360

== ENCOUNTER 2023-10-15 15:59 | Outpatient (CLI) | payer MEDICARE, SELFPAY ==
--- NOTE | ~2023-10-15 | XR_ITS ---
XR shoulder RT min 2V DATE: 10/15/2023 16:20 INDICATION: Right shoulder pain TECHNIQUE: 4 views COMPARISON: None FINDINGS: There is diffuse osteopenia. No fracture, dislocation, periosteal reaction or bone destruct ion is evident. Subtle chondrocalcinosis is suggested. Normal alignment at the acromion clavicular joint. There is narrowing of the glenohumeral joint and s uggestion of rotator cuff atrophy or tear. Right basilar atelectasis or scarring. IMPRESSION: Osteopenia Suggestion of rotator cuff atrophy or tear No fracture or dislocation Osteoarthritis of the right glenohumeral joint Reviewed, dictated and finalized at location [facility].
== END 2023-10-15 16:00 ==
PROVIDERS: PCP Internal Medicine Medical Oncology; Visit Provider Family Medicine
DX: M85.811 Other specified disorders of bone density and structure, right shoulder (principal); M19.011 Primary osteoarthritis, right shoulder
CPT/HCPCS: 73030

== ENCOUNTER 2023-11-12 15:42 | Outpatient (CLI) | payer MEDICARE, SELFPAY ==
--- NOTE | ~2023-11-12 | CT_ITS ---
EXAMINATION: CT diagnostic chest wo con DATE: 11/12/2023 15:59 INDICATION: Malignant neoplasm of the right breast TECHNIQUE: Computed tomography (CT) of the chest was performed without intravenous contrast. The dose -length product was 334.87 mGy-cm. Automated exposure control and iterative reconstruction technique were employed. COMPARISON: CT dated 08/05/2023 and 02/24/2023 FINDINGS: Large hiatal hernia. Small pericardial effusion. No significant pleural effusion. No thorac ic lymphadenopathy. Right breast mass without significant change measuring up to 3.8 cm maximum dimen jessi, consistent with known malignancy. No significant change to bilateral pulmonary nodules, consist ent with metastases. Largest in the left upper lobe measures 12 mm. There is dependent atelectasis. N o pneumothorax. No focal airspace consolidation. No focal lytic or blastic lesions. There is severe t horacic spondylosis. IMPRESSION: 1. Stable right breast mass, consistent with known malignancy. There is metastatic disease to the roberta g parenchyma, largest nodule measuring 12 mm in the left upper lobe. 2: Large hiatal hernia. 3: Small pericardial effusion. Reviewed, dictated and finalized at location [facility]. IMPRESSION: 1. Stable right breast mass, consistent with known malignancy. There is metasta tic disease to the lung parenchyma, largest nodule measuring 12 mm in the left upper lobe. 2: Large hiatal hernia. 3: Small pericardial effusion.
== END 2023-11-12 15:43 | disposition home or self-care (01) ==
PROVIDERS: PCP Internal Medicine Medical Oncology; Visit Provider Internal Medicine Medical Oncology
DX: C50.511 Malignant neoplasm of lower-outer quadrant of right female breast (principal); Z17.0 Estrogen receptor positive status [ER+]; K44.9 Diaphragmatic hernia without obstruction or gangrene; I31.39 Other pericardial effusion (noninflammatory)
CPT/HCPCS: 71250

== ENCOUNTER 2023-12-16 13:26 | Outpatient (CLI) | payer MEDICARE, SELFPAY | END 2023-12-16 13:27 | disposition home or self-care (01) | LOC: ANHAUDASC 13:27 | PROVIDERS: PCP Family Medicine; Visit Provider Family Medicine | DX: H90.3 Sensorineural hearing loss, bilateral (principal) | CPT/HCPCS: 92557; 92567 ==

== ENCOUNTER 2024-02-10 13:13 | Outpatient (CLI) | payer MEDICARE, SELFPAY ==
--- NOTE | ~2024-02-10 | CT_ITS ---
EXAMINATION:CT diagnostic chest wo con DATE: 02/10/2024 13:34 INDICATION: Metastatic breast cancer. TECHNIQUE: Computed tomography (CT) of the chest was performed without intravenous contrast. Automate d exposure control and iterative reconstruction technique were employed. The dose-length product (DLP ) was 452.58 mGy-cm. COMPARISON: Chest CT 11/12/2023 FINDINGS: There is chronic septal thickening in the lungs with a peripheral predominance. Calcified p ulmonary nodules and calcified hilar and mediastinal lymph nodes are consistent with old granulomatou s disease. There are at least 6 nodules in the lungs. A 14 mm nodule left upper lobe previously measu red 12 mm. A 9 mm nodule in right upper lobe previously measured 7 mm. No pleural effusion. The heart size is normal. There is a small pericardial effusion. There is a large sliding hiatal hernia that i ncludes pancreas and colon. There is a 4.0 x 3.0 cm mass in right breast. There is mild thoracic spon dylosis and severe lumbar spondylosis. IMPRESSION: 1. Stable right breast mass, consistent with primary malignancy. 2. Worsened lung nodules, consistent with metastatic disease. 3. Large sliding hiatal hernia. 4. Stable small pericardial effusion. Reviewed, dictated and finalized at location [facility].
== END 2024-02-10 13:14 | disposition home or self-care (01) ==
LOC: MICIMG 13:14
PROVIDERS: PCP Family Medicine; Visit Provider Internal Medicine Medical Oncology
DX: C50.511 Malignant neoplasm of lower-outer quadrant of right female breast (principal); Z17.0 Estrogen receptor positive status [ER+]; K44.9 Diaphragmatic hernia without obstruction or gangrene; I31.39 Other pericardial effusion (noninflammatory); R91.8 Other nonspecific abnormal finding of lung field
CPT/HCPCS: 71250

== ENCOUNTER 2024-03-17 13:00 | Outpatient (RCR) | payer MEDICARE, SELFPAY | END 2024-03-29 23:59 | disposition home or self-care (01) | LOC: ANHAUDASC 13:00 | PROVIDERS: PCP Family Medicine; Visit Provider Family Medicine | DX: Z46.1 Encounter for fitting and adjustment of hearing aid (principal) | CPT/HCPCS: 99199; V5260 ==

== ENCOUNTER 2024-04-19 11:25 | Inpatient (IN) | payer MEDICARE, SELFPAY ==
--- NOTE | ~2024-04-19 | XR_ITS ---
XR chest 2V Ordering provider: Kathryn Aldridge PA-C History: 88 years Female with . hemoptysis X1 WEEK . Comparison: None. FINDINGS: MEDIASTINUM: The cardiac silhouette is slightly enlarged. Large sliding hiatus hernia is noted. LUNGS: No effusions or pneumothorax. Opacification in the right upper lobe area is noted suggestive o f atelectasis versus pneumonia. Underlying fibrotic changes are seen. OTHER: No free air under the diaphragm. Degenerative changes of the spine. IMPRESSION: Right upper lobe atelectasis versus pneumonia. Follow-up advised. Large sliding hiatus hernia. Reviewed, dictated and finalized at location A. [facility]
--- NOTE | ~2024-04-19 | CT_ITS ---
EXAMINATION: CTA chest PE protocol DATE: 04/19/2024 13:45 INDICATION: Hemoptysis TECHNIQUE: Computed tomography (CT) pulmonary angiogram of the chest was performed with 100 mL Omnipa que-350 intravenous contrast. Additional 3D reconstructions utilizing coronal maximum intensity proje ction (MIP) were performed. The dose-length product was 1011.26 mGy-cm. COMPARISON: CT dated 02/10/2024 FINDINGS: Mild to moderate scattered respiratory motion artifact most prominent at the bilateral lung bases whe re it significantly decreases sensitivity in some of the smaller segmental and subsegmental pulmonary arteries. No pulmonary embolism. Again seen are multiple pulmonary nodule with lobular margins scatt ered throughout both lungs consistent with metastatic disease the largest in the lingula measuring 1. 7 x 1.4 cm has increased slightly from 1.5 x 1.3 cm. There is a new 5.6 x 6.5 cm region of groundglas s opacity in the right upper lobe surrounding a previously 10 x 8 mm, currently 1.4 x 1.0 cm nodule. There is compressive atelectasis at the medial aspect of the bilateral lower lobes along side a large hiatal hernia which contains the stomach, tail of the pancreas and segment of the proximal transvers e colon. No pleural effusion. Heart size is normal. Small pericardial effusion. Thoracic aorta is nor mal in caliber with no dissection. There are several mildly enlarged left hilar lymph nodes which cou ld be reactive or metastatic. There are calcified bilateral hilar and mediastinal lymph nodes consist ent with old granulomatous disease. Again seen is a 3.8 x 2.8 cm mass at the right breast consistent with primary malignancy. 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 There is also an unchanged small splenule near the splenic hilum. There are couple low-attenuation hepatic cysts the largest at the dome measuring 1.2 cm. Upper lumbar dextrocurvature with severe spondylosis. Chronic T8 compression fracture with one third central vertebral body height loss. IMPRESSION: 1. No pulmonary embolism. Sensitivity is significantly decreased in the basilar segmental and subsegm ental pulmonary arteries due to primarily to respiratory motion. 2. Large region of new groundglass opacity in the right upper lobe most likely related to pulmonary h emorrhage with differential including less likely pneumonia. 3. Unchanged right breast mass with slight interval progression in multiple scattered pulmonary nodul es consistent with worsening metastatic disease. 4. Mild left hilar lymphadenopathy which could be reactive or metastatic. 5. Large sliding-type hiatal hernia containing the stomach, tail the pancreas and segment of the dist al transverse colon. 6. Unchanged small pericardial effusion. Reviewed, dictated and finalized at location B. [place] [facility] IMPRESSION: 1. No pulmonary embolism. Sensitivity is significantly decreased in the basilar segmental and subsegmental pulmonary arteries due to primarily to respiratory motion. 2. Large region of new groundglass opacity in the right upper lobe most likely related to pulmonary hemorrhage with differential including less likely pneumon ia. 3. Unchanged right breast mass with slight interval progression in multiple sca ttered pulmonary nodules consistent with worsening metastatic disease. 4. Mild left hilar lymphadenopathy which could be reactive or metastatic. 5. Large sliding-type hiatal hernia containing the stomach, tail the pancreas a nd segment of the distal transverse colon. 6. Unchanged small pericardial effusion.
[2024-04-19 11:40] VITALS: BP 142/88; PULSE 72; RESP 20; TEMP 36.4; O2SAT 99
--- NOTE | 2024-04-19 13:08 | ED.GENADULT ---
HPI - General Adult General Chief complaint: Unspecified <MARÍA Sandhu Last Filed: 04/21/24 10:21> Stated complaint: coughing up blood clots <MARÍA Sandhu Last Filed: 04/21/24 10:21> Time Seen by Provider: 04/19/24 13:08 <MARÍA Sandhu Last Filed: 04/21/24 10:21> Focused HPI: This is a 88 year old female that presents to the ER for hemoptysis. Ongoing for a week. Reports shortness of breath. Reports some lower extremity edema. Reports history of blood clots. She is not currently on anticoagulation. Denies fevers or chest pain. GENERAL: Elderly, well-nourished, and in no acute distress. HEAD: Normocephalic, atraumatic. CHEST: Clear to auscultation. ?No respiratory distress. HEART: Regular rate and rhythm.? NEURO: ?Alert and oriented x3. Patient screened in triage and initial orders placed.? ?Additional care and disposition to be based upon?diagnostic testing and treatment. <Kathryn Aldridge PA-C - Last Filed: 04/21/24 10:21> Focused HPI: This is a 88 year old female that presents to the ER for hemoptysis. Ongoing for a week. Reports shortness of breath. Reports some lower extremity edema. Reports history of blood clots. She is not currently on anticoagulation. Denies fevers or chest pain. GENERAL: Elderly, well-nourished, and in no acute distress. HEAD: Normocephalic, atraumatic. CHEST: Clear to auscultation. ?No respiratory distress. HEART: Regular rate and rhythm.? NEURO: ?Alert and oriented x3. Patient screened in triage and initial orders placed.? ?Additional care and disposition to be based upon?diagnostic testing and treatment. <MARÍA Levy Last Filed: 04/24/24 09:03> Source: patient <MARÍA Levy Last Filed: 04/24/24 09:03> Mode of arrival: ambulatory <MARÍA Levy Last Filed: 04/24/24 09:03> Limitations: no limitations <Elizabeth Goel PA-C - Last Filed: 04/24/24 09:03> History of Present Illness HPI narrative: Agree with above HPI. 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 Currently on anastrozole. Sees Dr. Goodwin with [facility] oncology. Does report history of blood clots related to previous COVID, not currently on anticoagulation. Takes an aspirin 325 mg daily, but has not taken this for the last week since the hemoptysis began. Reports mild dizziness, mild weakness, shortness of breath with exertion. <Elizabeth Goel PA-C - Last Filed: 04/24/24 09:03> Related Data Home medications: Home Medications Medication Instructions Recorded Confirmed calcium 600 mg (as carbonate)-vit 1 tablet PO DAILY 09/04/20 04/22/24 D3 10 mcg (400 unit) chewable tablet (Calcium 600 with Vitamin D3) cholecalciferol (vitamin D3) 50 50 mcg PO DAILY 09/04/20 04/22/24 mcg (2,000 unit) capsule anastrozole 1 mg tablet 1 mg PO DAILY 01/27/23 04/22/24 Adult Nutritional Supplement 1 mg PO DAILY Tumeric Supplement 04/22/24 04/22/24 Adult Probiotic 1 mg PO DAILY 04/22/24 04/22/24 <Kathryn Aldridge PA-C - Last Filed: 04/21/24 10:21> Allergies/adverse reactions: Allergies Allergy/AdvReac Type Severity Reaction Status Date / Time nickel Allergy Mild itchiness Verified 04/20/24 08:22 palbociclib [From [facility]] Allergy Itching Verified 04/21/24 07:18 <MARÍA Sandhu Last Filed: 04/21/24 10:21> Review of Systems Review of Systems: All systems reviewed & are unremarkable except as noted in HPI. <MARÍA Levy Last Filed: 04/24/24 09:03> All systems reviewed & are unremarkable except as noted in HPI and below <MARÍA Levy Last Filed: 04/24/24 09:03> [facility] Past Medical History Medical History: Medical History Breast mass, right Cancer of right breast (~2009) Status post lumpectomy and antiestrogen therapy. Chronic anemia COVID-19 (~02/02/20) Dyspnea on exertion Essential hypertension Osteopenia Pulmonary embolism (~02/2020) <Kathryn Aldridge PA-C - Last Filed: 04/21/24 10:21> Surgical History Surgical History: Surgical History History of bilateral cataract extraction History of lumpectomy of right breast (~2009) For treatment of right breast cancer. <Kathryn Aldridge PA-C - Last Filed: 04/21/24 10:21> Family History Family History: Family History Mother Appendicitis due to appendicitis and her 20 Father Family history of emphysema, Onset Age: 84 <Kathryn Aldridge PA-C - Last Filed: 04/21/24 10:21> Social History Social History: Social History Social History: Mrs. Zamora lives with her in [place]. Her also had COVID-19 and he is currently undergoing rehab. They have 2 grown children. She retired from [employer]. She is a lifelong nonsmoker and denies alcohol and illicit substance use. Her Dick and 2 children are her surrogate decision makers. She wishes to be a full code, however she would not want to be on long-term life support. Smoking status: Never smoker Second hand tobacco smoke exposure: No Alcohol intake: never Substance use: never Substance use type: does not use Do You Feel Safe in your Home?: Yes Lack of Transportation: No Lack of Food: Never True Current Housing: I Have Housing Concerned About Future Housing: No Difficulty Paying Gas/Electric Bills: No Difficulty Paying for Meds: No Currently Unemployed: No Education: High School Diploma/GED Difficulty w/ Childcare or Family Care: No Occupation/Education: retired Gender identity (if verbalized by the patient): Female Sexual Orientation (if Verbalized by the Patient): Straight or Heterosexual Spiritual care concerns: No <MARÍA Sandhu Last Filed: 04/21/24 10:21> Exam Narrative: GENERAL: Elderly, but well-appearing, obese with BMI of 30.7 non-toxic, in no acute distress. HEAD: Normocephalic, atraumatic. RESPIRATORY: Airway patent, respirations nonlabored. Rhonchi diffusely throughout R lung. No distress or stridor. CARDIOVASCULAR: Regular rate and rhythm without murmurs, rubs, or gallops. ABDOMINAL: Soft, nontender, nondistended. Normoactive BS. MUSCULOSKELETAL: Moves all extremities. No gross deformities. SKIN: Warm, dry, normal color. NEURO: A&O X3. Speech clear. Cranial nerves II-XII grossly intact. Steady gait. No ataxic movements. No focal deficits. PSYCHIATRIC: Appropriate mood and affect. Normal interaction. <MARÍA Levy Last Filed: 04/24/24 09:03> Course Vital Signs Vital signs: Vital Signs Temperature 97.5 F L 04/19/24 11:40 Pulse Rate 72 04/19/24 11:40 Respiratory Rate 20 04/19/24 11:40 Blood Pressure 142/88 H 04/19/24 11:40 Pulse Oximetry 99 04/19/24 11:40 Temperature 97.3 F L 04/24/24 06:00 Pulse Rate 62 04/24/24 06:00 Respiratory Rate 18 04/24/24 06:00 Blood Pressure 154/57 H 04/24/24 06:00 Pulse Oximetry 96 04/24/24 06:00 Oxygen Delivery Room Air 04/23/24 08:35 <MARÍA Sandhu Last Filed: 04/21/24 10:21> Vital Signs Temperature 97.5 F L 04/19/24 11:40 Pulse Rate 72 04/19/24 11:40 Respiratory Rate 20 04/19/24 11:40 Blood Pressure 142/88 H 04/19/24 11:40 Pulse Oximetry 99 04/19/24 11:40 Temperature 97.3 F L 04/24/24 06:00 Pulse Rate 62 04/24/24 06:00 Respiratory Rate 18 04/24/24 06:00 Blood Pressure 154/57 H 04/24/24 06:00 Pulse Oximetry 96 04/24/24 06:00 Oxygen Delivery Room Air 04/23/24 08:35 <Eilzabeth Goel PA-C - Last Filed: 04/24/24 09:03> Medical Decision Making MDM Narrative Medical decision making narrative: Patient presented to ED with hemoptysis/coughing up blood clots for the past 1 week. History of breast cancer with metastases to lung. Vital signs are stable upon arrival. Patient is moderately hypertensive, however though she reports she has not taken her normal BP medications today. Oxygen is stable on room air. Patient is in no acute distress. She did show me several tissues of blood clots that she coughed up. She is not on any anticoagulation. She typically takes ASA 325mg daily but has not been taking this since the hemoptysis began. CBC without leukocytosis. Hemoglobin is stable at 13.7. This appears consistent with previous records. Coags are within normal range. CMP is unremarkable. Viral swabs are negative. CTA of chest showing no PE, but large region of new ground-glass opacity in right upper lobe most likely consistent with pulmonary hemorrhage. Less likely pneumonia. I am more suspicious for pulmonary hemorrhage given lack of leukocytosis or fevers or otherwise malaise. Imaging does also show stable right breast mass with worsening pulmonary nodules consistent with metastatic disease. Overall patient is stable at this time despite imaging results. Blood pressure is stable. Oxygen is stable on room air. No evidence of hemodynamic instability at this time. Discussed case with Dr. Ritter, pulmonology here, recommended transfer to tertiary center given that if patient were to decompensate or become unstable, we do not have the capability of managing/intervening on a pulmonary hemorrhage here. As well, this is likely complication/result of metastatic disease. Patient is established with [facility]. Discussed case with Dr. Morris, oncology fellow at [facility], accepted patient for transfer to oncology floor under Dr. Goodwin. Awaiting bed placement. Patient and family in agreement with plan and need for transfer/admission. Patient to remain on Telemetry for now. Will order serial H&Hs. Care signed out to Dr. Rivera at shift change pending bed availability at [facility]. <Elizabeth oGel PA-C - Last Filed: 04/24/24 09:03> Medical Records Medical records reviewed: Yes I reviewed the external patient's medical records. <MARÍA Levy Last Filed: 04/24/24 09:03> Vital Signs Vital Signs: Vital Signs Temperature 97.5 F L 04/19/24 11:40 Pulse Rate 72 04/19/24 11:40 Respiratory Rate 20 04/19/24 11:40 Blood Pressure 142/88 H 04/19/24 11:40 Pulse Oximetry 99 04/19/24 11:40 Temperature 97.3 F L 04/24/24 06:00 Pulse Rate 62 04/24/24 06:00 Respiratory Rate 18 04/24/24 06:00 Blood Pressure 154/57 H 04/24/24 06:00 Pulse Oximetry 96 04/24/24 06:00 Oxygen Delivery Room Air 04/23/24 08:35 <MARÍA Sandhu Last Filed: 04/21/24 10:21> Vital Signs Temperature 97.5 F L 04/19/24 11:40 Pulse Rate 72 04/19/24 11:40 Respiratory Rate 20 04/19/24 11:40 Blood Pressure 142/88 H 04/19/24 11:40 Pulse Oximetry 99 04/19/24 11:40 Temperature 97.3 F L 04/24/24 06:00 Pulse Rate 62 04/24/24 06:00 Respiratory Rate 18 04/24/24 06:00 Blood Pressure 154/57 H 04/24/24 06:00 Pulse Oximetry 96 04/24/24 06:00 Oxygen Delivery Room Air 04/23/24 08:35 <MARÍA Levy Last Filed: 04/24/24 09:03> Lab Data Lab results reviewed: Yes I reviewed the patient's lab results. <MARÍA Levy Last Filed: 04/24/24 09:03> Result diagrams: 04/24/24 06:20 04/24/24 06:20 <MARÍA Sandhu Last Filed: 04/21/24 10:21> Labs: Lab Results 04/19/24 04/19/24 04/19/24 Range/Units 13:28 13:37 18:42 WBC 8.9 (4.5-10.0) K/mm3 RBC 4.59 (4.2-5.4) M/mm3 Hgb 13.7 (12.0-15.0) g/dL Hct 41.6 (37.0-47.0) % MCV 90.6 (80-100) fl MCH 29.8 (26-34) pg MCHC 32.9 (32-36) g/dl RDW 13.9 (11.5-14.5) % Plt Count 189 (150-375) k/mm3 MPV 9.6 (7.4-10.4) fl Immature Gran % (Auto) 0.5 (0-0.5) % Neut % (Auto) 68.2 (45.5-73.1) % Lymph % (Auto) 18.6 (18.3-44.2) % [place] % (Auto) 9.5 H (2.6-8.5) % Eos % (Auto) 2.7 (0-4.4) % Baso % (Auto) 0.5 (0.2-1.2) % Lymph # (Auto) 1.65 (0.9-3.2) K/mm3 [place] # (Auto) 0.8 H (0.1-0.6) K/mm3 Eos # (Auto) 0.2 (0-0.3) K/mm3 Baso # (Auto) 0.0 (0.0-0.1) K/mm3 Abs Immat Gran (auto) 0.04 H (0.00-0.031) K/mm3 Absolute Neuts (auto) 6.1 (1.3-6.7) K/mm3 Absolute Nucleated RBC 0.000 (0.0-0.012) K/mm3 Nucleated RBC % 0.0 (0.0-0.2) % PT 14.1 (11.1-14.7) Seconds INR 1.1 APTT 26.0 (22.3-36.8) Seconds Sodium 139 (137-145) mmol/L Potassium 3.6 (3.4-5.0) mmol/L Chloride 103 (98-107) mmol/L Carbon Dioxide 31 H (22-30) mmol/L Anion Gap 5 (4-12) mmol/L BUN 14 (7-17) mg/dL Creatinine 0.90 1.00 (0.7-1.0) mg/dL Estim Creat Clear Calc 41 37 ml/min Estimated GFR 59 52 L (59 - ) Glucose 102 (65-110) mg/dL Calcium 10.2 (8.4-10.2) mg/dL Total Bilirubin 1.5 H (0.2-1.3) mg/dL AST 16 (14-36) U/L ALT 11 (6-35) U/L Alkaline Phosphatase 73 (38-126) U/L NT-Pro-B Natriuret Pep 353 H (19.9-100) pg/mL Total Protein 7.0 (6.3-8.2) g/dL Albumin 4.5 (3.5-5.1) g/dL Influenza A (RT-PCR) Negative (Negative) Influenza B (RT-PCR) Negative (Negative) RSV (RT-PCR) Negative (Negative) SARS-CoV-2 RNA (RT-PCR) Negative (Negative) Blood Type A Positive Antibody Screen Negative 04/20/24 04/20/24 04/21/24 Range/Units 04:16 10:05 05:52 WBC 6.1 (4.5-10.0) K/mm3 RBC 4.04 L (4.2-5.4) M/mm3 Hgb 11.8 L 12.0 12.0 (12.0-15.0) g/dL Hct 34.3 L 36.2 L 37.0 (37.0-47.0) % MCV 91.6 (80-100) fl MCH 29.7 (26-34) pg MCHC 32.4 (32-36) g/dl RDW 13.8 (11.5-14.5) % Plt Count 172 (150-375) k/mm3 MPV 9.7 (7.4-10.4) fl Immature Gran % (Auto) 0.3 (0-0.5) % Neut % (Auto) 61.7 (45.5-73.1) % Lymph % (Auto) 19.8 (18.3-44.2) % [place] % (Auto) 13.4 H (2.6-8.5) % Eos % (Auto) 4.3 (0-4.4) % Baso % (Auto) 0.5 (0.2-1.2) % Lymph # (Auto) 1.21 (0.9-3.2) K/mm3 [place] # (Auto) 0.8 H (0.1-0.6) K/mm3 Eos # (Auto) 0.3 (0-0.3) K/mm3 Baso # (Auto) 0.0 (0.0-0.1) K/mm3 Abs Immat Gran (auto) 0.02 (0.00-0.031) K/mm3 Absolute Neuts (auto) 3.8 (1.3-6.7) K/mm3 Absolute Nucleated RBC 0.000 (0.0-0.012) K/mm3 Nucleated RBC % 0.0 (0.0-0.2) % PT (11.1-14.7) Seconds INR APTT (22.3-36.8) Seconds Sodium 138 (137-145) mmol/L Potassium 3.4 (3.4-5.0) mmol/L Chloride 104 (98-107) mmol/L Carbon Dioxide 26 (22-30) mmol/L Anion Gap 8 (4-12) mmol/L BUN 17 (7-17) mg/dL Creatinine 0.90 (0.7-1.0) mg/dL Estim Creat Clear Calc 41 ml/min Estimated GFR 59 (59 - ) Glucose 119 H (65-110) mg/dL Calcium 9.4 (8.4-10.2) mg/dL Total Bilirubin 1.0 (0.2-1.3) mg/dL AST 15 (14-36) U/L ALT 10 (6-35) U/L Alkaline Phosphatase 63 (38-126) U/L NT-Pro-B Natriuret Pep (19.9-100) pg/mL Total Protein 6.0 L (6.3-8.2) g/dL Albumin 3.9 (3.5-5.1) g/dL Influenza A (RT-PCR) (Negative) Influenza B (RT-PCR) (Negative) RSV (RT-PCR) (Negative) SARS-CoV-2 RNA (RT-PCR) (Negative) Blood Type Antibody Screen <Kathryn Aldridge PA-C - Last Filed: 11/15/24 10:21> Lab Results 04/19/24 04/19/24 04/19/24 Range/Units 13:28 13:37 18:42 WBC 8.9 (4.5-10.0) K/mm3 RBC 4.59 (4.2-5.4) M/mm3 Hgb 13.7 (12.0-15.0) g/dL Hct 41.6 (37.0-47.0) % MCV 90.6 (80-100) fl MCH 29.8 (26-34) pg MCHC 32.9 (32-36) g/dl RDW 13.9 (11.5-14.5) % Plt Count 189 (150-375) k/mm3 MPV 9.6 (7.4-10.4) fl Immature Gran % (Auto) 0.5 (0-0.5) % Neut % (Auto) 68.2 (45.5-73.1) % Lymph % (Auto) 18.6 (18.3-44.2) % [place] % (Auto) 9.5 H (2.6-8.5) % Eos % (Auto) 2.7 (0-4.4) % Baso % (Auto) 0.5 (0.2-1.2) % Lymph # (Auto) 1.65 (0.9-3.2) K/mm3 [place] # (Auto) 0.8 H (0.1-0.6) K/mm3 Eos # (Auto) 0.2 (0-0.3) K/mm3 Baso # (Auto) 0.0 (0.0-0.1) K/mm3 Abs Immat Gran (auto) 0.04 H (0.00-0.031) K/mm3 Absolute Neuts (auto) 6.1 (1.3-6.7) K/mm3 Absolute Nucleated RBC 0.000 (0.0-0.012) K/mm3 Nucleated RBC % 0.0 (0.0-0.2) % PT 14.1 (11.1-14.7) Seconds INR 1.1 APTT 26.0 (22.3-36.8) Seconds Sodium 139 (137-145) mmol/L Potassium 3.6 (3.4-5.0) mmol/L Chloride 103 (98-107) mmol/L Carbon Dioxide 31 H (22-30) mmol/L Anion Gap 5 (4-12) mmol/L BUN 14 (7-17) mg/dL Creatinine 0.90 1.00 (0.7-1.0) mg/dL Estim Creat Clear Calc 41 37 ml/min Estimated GFR 59 52 L (59 - ) Glucose 102 (65-110) mg/dL Calcium 10.2 (8.4-10.2) mg/dL Total Bilirubin 1.5 H (0.2-1.3) mg/dL AST 16 (14-36) U/L ALT 11 (6-35) U/L Alkaline Phosphatase 73 (38-126) U/L NT-Pro-B Natriuret Pep 353 H (19.9-100) pg/mL Total Protein 7.0 (6.3-8.2) g/dL Albumin 4.5 (3.5-5.1) g/dL Influenza A (RT-PCR) Negative (Negative) Influenza B (RT-PCR) Negative (Negative) RSV (RT-PCR) Negative (Negative) SARS-CoV-2 RNA (RT-PCR) Negative (Negative) Blood Type A Positive Antibody Screen Negative 04/20/24 04/20/24 04/21/24 Range/Units 04:16 10:05 05:52 WBC 6.1 (4.5-10.0) K/mm3 RBC 4.04 L (4.2-5.4) M/mm3 Hgb 11.8 L 12.0 12.0 (12.0-15.0) g/dL Hct 34.3 L 36.2 L 37.0 (37.0-47.0) % MCV 91.6 (80-100) fl MCH 29.7 (26-34) pg MCHC 32.4 (32-36) g/dl RDW 13.8 (11.5-14.5) % Plt Count 172 (150-375) k/mm3 MPV 9.7 (7.4-10.4) fl Immature Gran % (Auto) 0.3 (0-0.5) % Neut % (Auto) 61.7 (45.5-73.1) % Lymph % (Auto) 19.8 (18.3-44.2) % [place] % (Auto) 13.4 H (2.6-8.5) % Eos % (Auto) 4.3 (0-4.4) % Baso % (Auto) 0.5 (0.2-1.2) % Lymph # (Auto) 1.21 (0.9-3.2) K/mm3 [place] # (Auto) 0.8 H (0.1-0.6) K/mm3 Eos # (Auto) 0.3 (0-0.3) K/mm3 Baso # (Auto) 0.0 (0.0-0.1) K/mm3 Abs Immat Gran (auto) 0.02 (0.00-0.031) K/mm3 Absolute Neuts (auto) 3.8 (1.3-6.7) K/mm3 Absolute Nucleated RBC 0.000 (0.0-0.012) K/mm3 Nucleated RBC % 0.0 (0.0-0.2) % PT (11.1-14.7) Seconds INR APTT (22.3-36.8) Seconds Sodium 138 (137-145) mmol/L Potassium 3.4 (3.4-5.0) mmol/L Chloride 104 (98-107) mmol/L Carbon Dioxide 26 (22-30) mmol/L Anion Gap 8 (4-12) mmol/L BUN 17 (7-17) mg/dL Creatinine 0.90 (0.7-1.0) mg/dL Estim Creat Clear Calc 41 ml/min Estimated GFR 59 (59 - ) Glucose 119 H (65-110) mg/dL Calcium 9.4 (8.4-10.2) mg/dL Total Bilirubin 1.0 (0.2-1.3) mg/dL AST 15 (14-36) U/L ALT 10 (6-35) U/L Alkaline Phosphatase 63 (38-126) U/L NT-Pro-B Natriuret Pep (19.9-100) pg/mL Total Protein 6.0 L (6.3-8.2) g/dL Albumin 3.9 (3.5-5.1) g/dL Influenza A (RT-PCR) (Negative) Influenza B (RT-PCR) (Negative) RSV (RT-PCR) (Negative) SARS-CoV-2 RNA (RT-PCR) (Negative) Blood Type Antibody Screen <Elizabeth Goel PA-C - Last Filed: 04/24/24 09:03> Imaging Data Attestation: I personally reviewed and interpreted this imaging study as follows: <Elizabeth Goel PA-C - Last Filed: 04/24/24 09:03> Radiologist's impression: ITS Impressions Chest CTA 04/19/24 13:56 IMPRESSION: 1. No pulmonary embolism. Sensitivity is significantly decreased in the basilar segmental and subsegmental pulmonary arteries due to primarily to respiratory motion. 2. Large region of new groundglass opacity in the right upper lobe most likely related to pulmonary hemorrhage with differential including less likely pneumonia. 3. Unchanged right breast mass with slight interval progression in multiple scattered pulmonary nodules consistent with worsening metastatic disease. 4. Mild left hilar lymphadenopathy which could be reactive or metastatic. 5. Large sliding-type hiatal hernia containing the stomach, tail the pancreas and segment of the distal transverse colon. 6. Unchanged small pericardial effusion. Chest X-Ray 04/19/24 14:08 IMPRESSION: Right upper lobe atelectasis versus pneumonia. Follow-up advised. Large sliding hiatus hernia. <Elizabeth Goel PA-C - Last Filed: 04/24/24 09:03> ECG Data EKG #1: Attestation: I personally reviewed and interpreted this ECG as follows: <Elizabeth Goel PA-C - Last Filed: 04/24/24 09:03> ECG completion date: 04/19/24 <MARÍA Levy Last Filed: 04/24/24 09:03> ECG completion time: 13:29 <Elizabeth Goel PA-C - Last Filed: 04/24/24 09:03> EKG Interpretation: normal rate, sinus rhythm, PVCs and non-specific ST changes <MARÍA Levy Last Filed: 04/24/24 09:03> Critical Care Time Critical Care Time Critical Care Time: No <MARÍA Sandhu Last Filed: 04/21/24 10:21> Discharge Plan Discharge Clinical Impression: Pulmonary hemorrhage, Primary malignant neoplasm of right breast with metastasis to other site <MARÍA Sandhu Last Filed: 04/21/24 10:21> Patient Disposition: Acute Care Hospital <Kathryn Aldridge PA-C - Last Filed: 04/21/24 10:21> Condition: Serious <Kathryn Aldridge PA-C - Last Filed: 04/21/24 10:21> Sign Out Sign Out Data: Patient Sign Out occurred on 04/20/24 at 03:49. Patient's care was discussed, and care was transferred from Elizabeth Goel PA-C to Mark Rivera MD. Sign Out Comment: Hx R breast CA with mets to lung, sees Dr. Goodwin with [facility]. Came to ED for hemoptysis X 1 week R upper lobe pulmonary hemorrhage on CTA chest, worsening mets So far, stable. Initial Hgb 13.7. Declined by pulmonology here. Waiting bed placement at [facility]. Serial H&Hs ordered. Last updated by Elizabeth Goel PA-C at 04/20/24 01:37 <Kathryn Aldridge PA-C - Last Filed: 04/21/24 10:21>
--- NOTE | 2024-04-19 13:09 | ECG_ITS ---
Test Date: 2024-04-19 13:29:47 Measurements Intervals [place] Rate: 72 P: 12 [place]: 191 QRS: -67 QRSD: 101 T: 63 QT: 384 QTc: 423 Interpretive Statements SINUS RHYTHM WITH OCCASIONAL SUPRAVENTRICULAR PREMATURE COMPLEXES LEFT ANTERIOR FASCICULAR BLOCK BORDERLINE ST-T WAVE ABNORMALITY- HIGH LATERAL LEADS BASELINE ARTIFACT- I, II, III, AVR, AVL, AVF, V1, V4-V6 ABNORMAL ECG No previous ECG available for comparison Electronically Signed On 04-19-2024 13:31:17 MANAGER OF INTERNAL AUDIT by Kevin Rodriguez D.O.
[2024-04-19 13:39] LABS: Estimated CRCL calculation 37 ml/min; Estimated Glomerular Filt Rate 52
[2024-04-19 13:40] LABS: Basophils Percent Auto 0.5 % (0.2-1.2); Eosinophils Absolute Auto 0.2 K/mm3 (0-0.3); Eosinophils Percent Auto 2.7 % (0-4.4); Hematocrit 41.6 % (37.0-47.0); Hemoglobin 13.7 g/dL (12.0-15.0); Immature Granulocyte Absolute 0.04 K/mm3 (0.00-0.031); Immature Granulocyte Percent A 0.5 % (0-0.5); Lymphocytes Absolute Auto 1.65 K/mm3 (0.9-3.2); Lymphocytes Percent Auto 18.6 % (18.3-44.2); Mean Corpuscular HGB Conc 32.9 g/dl (32-36); Mean Corpuscular Hemoglobin 29.8 pg (26-34); Mean Corpuscular Volume 90.6 fl (80-100); Mean Platelet Volume 9.6 fl (7.4-10.4); Monocytes Absolute Auto 0.8 K/mm3 (0.1-0.6); Monocytes Percent Auto 9.5 % (2.6-8.5); Neutrophils Absolute Auto 6.1 K/mm3 (1.3-6.7); Neutrophils Percent Auto 68.2 % (45.5-73.1); Platelet Count Result 189 k/mm3 (150-375); Red Blood Count 4.59 M/mm3 (4.2-5.4); Red Cell Distribution Width 13.9 % (11.5-14.5); White Blood Count 8.9 K/mm3 (4.5-10.0)
[2024-04-19 13:48] LABS: INR 1.1; Prothrombin Time 14.1 Seconds (11.1-14.7)
[2024-04-19 13:54] LABS: Alanine Aminotransferase 11 U/L (6-35); Albumin Level 4.5 g/dL (3.5-5.1); Alkaline Phosphatase 73 U/L (38-126); Anion Gap 5 mmol/L (4-12); Aspartate Amino Transferase 16 U/L (14-36); Bilirubin,Total 1.5 mg/dL (0.2-1.3); Blood Urea Nitrogen 14 mg/dL (7-17); Calcium 10.2 mg/dL (8.4-10.2); Carbon Dioxide 31 mmol/L (22-30); Chloride 103 mmol/L (98-107); Estimated CRCL calculation 41 ml/min; Estimated Glomerular Filt Rate 59; Glucose 102 mg/dL (65-110); Potassium 3.6 mmol/L (3.4-5.0); Sodium 139 mmol/L (137-145)
[2024-04-19 14:02] LABS: NT Pro B Type Natriuretic Pept 353 pg/mL (19.9-100)
[2024-04-19 14:35] LABS: Influenza A QL RT-PCR Negative (Negative); Influenza B QL RT-PCR Negative (Negative); RSV RNA, RT-PCR Negative (Negative); SARS-CoV-2 RNA PCR Negative (Negative)
[2024-04-19 17:38] VITALS: BP 197/89; PULSE 78; RESP 16; O2SAT 99
--- NOTE | 2024-04-19 18:44 | PC.NURSE ---
Pt has been accepted to [facility], waiting on a bed at this time.
[2024-04-19 19:38] VITALS: PULSE 102
[2024-04-19] MEDS: hydrALAZINE 10 MG TABLET PO (19:38)
[2024-04-19] MEDS: LABETALOL HCL 100 MG TABLET 200 MG PO (19:38)
[2024-04-19 19:39] VITALS: BP 134/88; PULSE 102; RESP 14; O2SAT 96
--- NOTE | 2024-04-19 21:50 | PC.NURSE ---
[facility] transfer center called to receive an update. No bed available and they will call back in the morning.
[2024-04-19 22:31] VITALS: BP 142/84; PULSE 74; RESP 15; O2SAT 97
[2024-04-20] VITALS (12 sets, daily range): BP systolic 116–175; BP diastolic 64–83; PULSE 66–74; RESP 16–20; TEMP 36.6; O2SAT 94–98
[2024-04-20 04:22] LABS: Hematocrit 34.3 % (37.0-47.0); Hemoglobin 11.8 g/dL (12.0-15.0)
[2024-04-20 10:12] LABS: Hematocrit 36.2 % (37.0-47.0)
--- NOTE | 2024-04-20 10:15 | PC.NURSE ---
PUBLIC FINANCE SPECIALIST ON PHONE W/ OLGA FROM [facility]. OLGA RECEIVED UPDATE AND STATES WE ARE STILL AWAITING A BED.
--- NOTE | 2024-04-20 13:30 | ECG_ITS ---
Test Date: 2024-04-20 13:35:15 Measurements Intervals [place] Rate: 64 P: 24 DE: 195 QRS: -62 QRSD: 99 T: 60 QT: 324 QTc: 336 Interpretive Statements SINUS RHYTHM LEFT ANTERIOR FASCICULAR BLOCK BORDERLINE ST-T WAVE ABNORMALITY- INF/HIGH LAT LEADS BASELINE ARTIFACT- I, II, III, AVR, AVL, AVF ABNORMAL ECG Compared to ECG 04/19/2024 13:29:47 NO SIGNIFICANT CHANGE Electronically Signed On 04-20-2024 14:05:28 DETECTIVE CAPTAIN by Kevin Rodriguez D.O.
[2024-04-20] MEDS: ANASTROZOLE (*CHEMO) 1 MG TABLET BY MOUTH (16:07)
[2024-04-21] VITALS (18 sets, daily range): BP systolic 142–187; BP diastolic 46–91; PULSE 61–90; RESP 14–25; TEMP 36.4; O2SAT 95–100
[2024-04-21 06:09] LABS: Basophils Percent Auto 0.5 % (0.2-1.2); Eosinophils Absolute Auto 0.3 K/mm3 (0-0.3); Eosinophils Percent Auto 4.3 % (0-4.4); Immature Granulocyte Absolute 0.02 K/mm3 (0.00-0.031); Immature Granulocyte Percent A 0.3 % (0-0.5); Lymphocytes Absolute Auto 1.21 K/mm3 (0.9-3.2); Lymphocytes Percent Auto 19.8 % (18.3-44.2); Mean Corpuscular HGB Conc 32.4 g/dl (32-36); Mean Corpuscular Hemoglobin 29.7 pg (26-34); Mean Corpuscular Volume 91.6 fl (80-100); Mean Platelet Volume 9.7 fl (7.4-10.4); Monocytes Absolute Auto 0.8 K/mm3 (0.1-0.6); Monocytes Percent Auto 13.4 % (2.6-8.5); Neutrophils Absolute Auto 3.8 K/mm3 (1.3-6.7); Neutrophils Percent Auto 61.7 % (45.5-73.1); Platelet Count Result 172 k/mm3 (150-375); Red Blood Count 4.04 M/mm3 (4.2-5.4); Red Cell Distribution Width 13.8 % (11.5-14.5); White Blood Count 6.1 K/mm3 (4.5-10.0)
[2024-04-21 06:17] LABS: Alanine Aminotransferase 10 U/L (6-35); Albumin Level 3.9 g/dL (3.5-5.1); Alkaline Phosphatase 63 U/L (38-126); Anion Gap 8 mmol/L (4-12); Aspartate Amino Transferase 15 U/L (14-36); Blood Urea Nitrogen 17 mg/dL (7-17); Calcium 9.4 mg/dL (8.4-10.2); Carbon Dioxide 26 mmol/L (22-30); Chloride 104 mmol/L (98-107); Estimated CRCL calculation 41 ml/min; Estimated Glomerular Filt Rate 59; Glucose 119 mg/dL (65-110); Potassium 3.4 mmol/L (3.4-5.0); Sodium 138 mmol/L (137-145)
--- NOTE | 2024-04-21 08:36 | PC.NURSE ---
RN spoke with Marcia at [facility] transfer center who states there is not a bed yet available for the pt and that they will call when they have one.
--- NOTE | 2024-04-21 11:04 | PC.NURSE ---
Report given to Princess OROZCO, all questions answered
[2024-04-21] MEDS: hydrALAZINE 10 MG TABLET PO (18:08)
[2024-04-21] MEDS: LABETALOL HCL 100 MG TABLET 200 MG PO (21:19)
--- NOTE | 2024-04-21 21:46 | PC.NURSE ---
spoke to RN at [facility] transfer center @0101 who updated this RN that there is no bed assignment available at this time.
--- NOTE | 2024-04-21 23:17 | PC.NURSE ---
care and report given to PAM Partida. all questions answered.
[2024-04-22] VITALS (26 sets, daily range): BP systolic 107–175; BP diastolic 51–98; PULSE 56–95; RESP 14–20; TEMP 36.2–36.9; O2SAT 92–98; BMI 32.0
--- NOTE | 2024-04-22 08:08 | PC.NURSE ---
0700: assumed care of pt. Assessment unchanged. Pt repositioned for comfort. Coffee given & breakfast tray ordered. Waiting on bed assignment
--- NOTE | 2024-04-22 09:06 | PC.NURSE ---
Miley from [facility] transfer center called for updates on this pt. No bed is available at this time.
--- NOTE | 2024-04-22 10:05 | ADMGEN ---
This patient, Monie Zamora, was admitted to Medical Room 346-01. Patient/family oriented to hospital policies and general routines including ID bracelet, bed and alarms, visiting hours, pain management, procedures, bathroom and other care routines, personal items, smoking policy, room service/diet, and visiting hours. Information on how to activate the Rapid Response Team has been discussed. Patient/Family are encouraged to report perceived risks to care and to ask questions if they do not understand what they are told or what they should do.
[2024-04-22] MEDS: LABETALOL HCL 100 MG TABLET 200 MG PO ×2 (10:23→21:59)
[2024-04-22] MEDS: hydrALAZINE 10 MG TABLET PO ×2 (10:23→17:47)
[2024-04-22] MEDS: ANASTROZOLE (*CHEMO) 1 MG TABLET BY MOUTH (10:24)
--- NOTE | 2024-04-22 18:43 | PM.IMHP ---
H&P: HPI History of Present Illness Date/Time: 04/22/24 18:43 Chief Complaint: Cough no blood. Narrative: 88-year-old female past medical history of right breast cancer, hypertension history of pulmonary embolism presented to the ER control for coughing up blood. Patient reported she has been coughing up bright red blood the past 10 days prior to presentation. However denies any chest pain no shortness of breath no fever no vomiting abdominal pain no diarrhea no dysuria no focal symptoms no chest trauma. Patient reported she was diagnosed of breast cancer and initially was treated and placed on anastrozole. Reported that after she had COVID in 2019 she was taken off anastrozole which she has taken for 10 years at a time and eventually 1 in 2021 she had a lumpectomy for breast lesion that showed the recurrence of breast cancer. She was placed on anastrozole and monitor by her oncologist. ER evaluation notable for blood pressure 175/72, labs unremarkable. CT chest showed no pulmonary embolism margin of new blood gas opacity in the right open wound likely related to pulmonary hemorrhage differentials less likely pneumonia. Also showed unchanged right breast mass with slight interval progression in multiple scattered pulmonary nodules consistent with worsening metastatic disease. Mild left hilar lymphadenopathy which could be reactive or metastatic. Patient was admitted however she is pending transfer to [facility]. Review of Systems Review of Systems: All other systems are reviewed and negative except as noted in the history above. [facility] Past Medical History Medical History Breast mass, right Cancer of right breast (~2009) Status post lumpectomy and antiestrogen therapy. Chronic anemia COVID-19 (~02/02/20) Dyspnea on exertion Essential hypertension Osteopenia Pulmonary embolism (~02/2020) Surgical History Surgical History History of bilateral cataract extraction History of lumpectomy of right breast (~2009) For treatment of right breast cancer. Family History Family History Mother Appendicitis due to appendicitis and her 20 Father Family history of emphysema, Onset Age: 84 Social History Social History Social History: Mrs. Zamora lives with her in [place]. Her also had COVID-19 and he is currently undergoing rehab. They have 2 grown children. She retired from [employer]. She is a lifelong nonsmoker and denies alcohol and illicit substance use. Her Dick and 2 children are her surrogate decision makers. She wishes to be a full code, however she would not want to be on long-term life support. Smoking status: Never smoker Second hand tobacco smoke exposure: No Alcohol intake: never Substance use: never Substance use type: does not use Do You Feel Safe in your Home?: Yes Lack of Transportation: No Lack of Food: Never True Current Housing: I Have Housing Concerned About Future Housing: No Difficulty Paying Gas/Electric Bills: No Difficulty Paying for Meds: No Currently Unemployed: No Education: High School Diploma/GED Difficulty w/ Childcare or Family Care: No Occupation/Education: retired Gender identity (if verbalized by the patient): Female Sexual Orientation (if Verbalized by the Patient): Straight or Heterosexual Spiritual care concerns: No Meds Home Medications and Allergies Home Medications Medication Instructions Recorded Confirmed Type calcium 600 mg (as carbonate)-vit 1 tablet PO DAILY 09/04/20 04/22/24 History D3 10 mcg (400 unit) chewable tablet (Calcium 600 with Vitamin D3) cholecalciferol (vitamin D3) 50 50 mcg PO DAILY 09/04/20 04/22/24 History mcg (2,000 unit) capsule aspirin 325 mg tablet 325 mg PO DAILY #30 tabs 01/27/21 04/22/24 Rx albuterol sulfate 90 mcg/actuation 2 puff inhalation QIDRT PRN 01/23/22 04/22/24 Rx aerosol inhaler (Proventil HFA) Shortness Of Breath #3 device anastrozole 1 mg tablet 1 mg PO DAILY 01/27/23 04/22/24 History hydralazine 10 mg tablet 10 mg PO BID #180 tabs 08/02/23 04/22/24 Rx amlodipine 10 mg tablet 10 mg PO DAILY #90 tabs 02/01/24 04/22/24 Rx labetalol 200 mg tablet 200 mg PO Q12H #180 tabs 02/25/24 04/22/24 Rx Adult Nutritional Supplement 1 mg PO DAILY Tumeric Supplement 04/22/24 04/22/24 History Adult Probiotic 1 mg PO DAILY 04/22/24 04/22/24 History Allergies Allergy/AdvReac Type Severity Reaction Status Date / Time nickel Allergy Mild itchiness Verified 04/20/24 08:22 palbociclib [From [facility]] Allergy Itching Verified 04/21/24 07:18 Vital Signs Vital Signs - 24 hr 04/21/24 19:02 04/21/24 21:19 04/21/24 20:02 Temperature Pulse Rate 78 71 76 Respiratory Rate 15 25 H Blood Pressure 163/87 H 160/91 H Pulse Oximetry 97 97 04/21/24 21:23 04/21/24 22:21 04/21/24 23:01 Temperature Pulse Rate 71 61 66 Respiratory Rate 22 H 18 18 Blood Pressure 142/46 H Pulse Oximetry 99 96 95 04/22/24 01:12 04/21/24 23:55 04/22/24 00:00 Temperature Pulse Rate 66 63 62 Respiratory Rate 14 18 19 Blood Pressure 117/51 L Pulse Oximetry 95 95 93 04/22/24 00:01 04/22/24 00:44 04/22/24 00:45 Temperature Pulse Rate 66 75 75 Respiratory Rate 20 17 18 Blood Pressure 107/67 Pulse Oximetry 94 95 95 04/22/24 01:05 04/22/24 01:15 04/22/24 02:03 Temperature Pulse Rate 64 66 66 Respiratory Rate 18 19 16 Blood Pressure Pulse Oximetry 94 94 92 04/22/24 02:17 04/22/24 02:37 04/22/24 02:45 Temperature Pulse Rate 66 66 69 Respiratory Rate 16 19 18 Blood Pressure Pulse Oximetry 94 92 04/22/24 03:16 04/22/24 03:45 04/22/24 04:02 Temperature Pulse Rate 65 62 69 Respiratory Rate 19 19 14 Blood Pressure 151/94 H Pulse Oximetry 96 04/22/24 04:03 04/22/24 04:15 04/22/24 06:17 Temperature Pulse Rate 67 61 95 Respiratory Rate 18 20 15 Blood Pressure 166/81 H Pulse Oximetry 95 96 95 04/22/24 08:16 04/22/24 10:00 04/22/24 10:23 Temperature 97.2 F L 97.3 F L Pulse Rate 56 L 80 80 Respiratory Rate 18 18 Blood Pressure 172/66 H 166/98 H Pulse Oximetry 95 96 04/22/24 12:00 04/22/24 15:04 04/22/24 16:00 Temperature 98.5 F Pulse Rate 80 71 68 Respiratory Rate 20 Blood Pressure 175/72 H Pulse Oximetry 97 Exam Narrative: General: alert and comfortable Eyes: EOMI, PERRLA ENNT External ears normal, Neck is supple, no masses, Respiratory systems: Clear to auscultation Cardiovascular S1, S2, normal rhythm, no murmur, rub, or gallop; no thrill or palpable murmurs on palpation. Gastrointestinal: soft, non-tender, and non-distended abdomen with no masses; BS present Skin: no rash, lesions, ulcerations, subcutaneous nodules or induration Musculoskeletal: no abnormality and no tenderness, normal ROM Neurologic: Alert and oriented x3, non focal Mental Status Exam: normal affect Assessment and Plan Assessment and plan (1) Pulmonary hemorrhage: Code(s): R04.89 - Hemorrhage from other sites in respiratory passages Status: Acute (2) Primary malignant neoplasm of right breast with metastasis to other site: Code(s): C50.911 - Malignant neoplasm of unspecified site of right female breast Status: Acute (3) Lung nodule seen on imaging study: Code(s): R91.1 - Solitary pulmonary nodule Status: Acute Plan Pulmonary hemorrhage with hemoptysis Likely from lung metastases disease from breast cancer. Symptoms has ambulated at this time Continue monitoring Patient pending transfer to [facility] Metastatic breast cancer Patient had initial breast cancer was treated and she was placed on anastrozole, had a recurrence in 2021 does manage with anastrozole Mild CT abdomen shows the progression with metastasis to the lungs. Awaiting transfer to [facility]. Continue anastrozole. History of right malignant Completed 1 year of anticoagulation Monitor. Hypertension Continue home medications. DVT prophylaxis SCDs, no anticoagulation due to pulmonary hemorrhage Patient is DNR Surrogate decision maker documented. Awaiting transfer to [facility] Hospitalist MIPS Advance Care Plan I have confirmed that the patient's Advanced Care Plan is present, code status is documented, or surrogate decision maker is listed in patient medical record.: Yes Medication Reconciliation I have utilized all available resources to obtain, update and review the patients current medications (includes all prescriptions, OTC, herbals, cannabis, and nutritional supplements).: Yes
[2024-04-23] VITALS (10 sets, daily range): BP systolic 110–159; BP diastolic 66–78; PULSE 56–80; RESP 16–18; TEMP 36.3–36.7; O2SAT 95–99
[2024-04-23 05:46] LABS: Basophils Percent Auto 0.6 % (0.2-1.2); Eosinophils Absolute Auto 0.3 K/mm3 (0-0.3); Eosinophils Percent Auto 4.8 % (0-4.4); Hematocrit 34.8 % (37.0-47.0); Immature Granulocyte Absolute 0.04 K/mm3 (0.00-0.031); Immature Granulocyte Percent A 0.6 % (0-0.5); Lymphocytes Absolute Auto 1.39 K/mm3 (0.9-3.2); Lymphocytes Percent Auto 21.5 % (18.3-44.2); Mean Corpuscular HGB Conc 31.6 g/dl (32-36); Mean Corpuscular Hemoglobin 29.3 pg (26-34); Mean Corpuscular Volume 92.8 fl (80-100); Monocytes Absolute Auto 0.8 K/mm3 (0.1-0.6); Monocytes Percent Auto 12.1 % (2.6-8.5); Neutrophils Absolute Auto 3.9 K/mm3 (1.3-6.7); Neutrophils Percent Auto 60.4 % (45.5-73.1); Platelet Count Result 163 k/mm3 (150-375); Red Blood Count 3.75 M/mm3 (4.2-5.4); White Blood Count 6.5 K/mm3 (4.5-10.0)
[2024-04-23 05:52] LABS: Alanine Aminotransferase 10 U/L (6-35); Albumin Level 3.6 g/dL (3.5-5.1); Alkaline Phosphatase 55 U/L (38-126); Anion Gap 6 mmol/L (4-12); Aspartate Amino Transferase 14 U/L (14-36); Bilirubin,Total 0.5 mg/dL (0.2-1.3); Blood Urea Nitrogen 14 mg/dL (7-17); Calcium 9.6 mg/dL (8.4-10.2); Carbon Dioxide 25 mmol/L (22-30); Chloride 105 mmol/L (98-107); Estimated CRCL calculation 47 ml/min; Estimated Glomerular Filt Rate > 60; Glucose 108 mg/dL (65-110); Magnesium 2.1 mg/dL (1.6-2.3); Potassium 3.6 mmol/L (3.4-5.0); Sodium 136 mmol/L (137-145)
[2024-04-23] MEDS: ANASTROZOLE (*CHEMO) 1 MG TABLET BY MOUTH (08:35)
[2024-04-23] MEDS: hydrALAZINE 10 MG TABLET PO ×2 (08:35→17:06)
[2024-04-23] MEDS: LABETALOL HCL 100 MG TABLET 200 MG PO ×2 (08:35→20:27)
[2024-04-23] MEDS: amLODIPine BESYLATE 10 MG TABLET PO (08:35)
--- NOTE | 2024-04-23 09:30 | PC.NURSE ---
Miley with [facility] transfer center called via telephone and informed RN there are no available beds at this time.
--- NOTE | 2024-04-23 12:22 | P.PNIM_ITS ---
Progress Note: A&P Assessment and Plan (1) Pulmonary hemorrhage: Code(s): R04.89 - Hemorrhage from other sites in respiratory passages Status: Acute (2) Primary malignant neoplasm of right breast with metastasis to other site: Code(s): C50.911 - Malignant neoplasm of unspecified site of right female breast Status: Acute (3) Lung nodule seen on imaging study: Code(s): R91.1 - Solitary pulmonary nodule Status: Acute Plan Pulmonary hemorrhage with hemoptysis Likely from lung metastases disease from breast cancer. Symptoms has ambulated at this time Continue monitoring Patient pending transfer to [facility] Metastatic breast cancer Patient had initial breast cancer was treated and she was placed on anastrozole, had a recurrence in 2021 does manage with anastrozole Mild CT abdomen shows the progression with metastasis to the lungs. Awaiting transfer to [facility]. Continue anastrozole. History of right malignant Completed 1 year of anticoagulation Monitor. Hypertension Continue home medications. DVT prophylaxis SCDs, no anticoagulation due to pulmonary hemorrhage Patient is DNR Surrogate decision maker documented. Awaiting transfer to [facility] Subjective Date/time seen: 04/23/24 12:22 Interval history: Patient comfortable at bedside Review of Systems Review of Systems: All other systems are reviewed and negative except as noted in the history above. Exam Narrative: General: alert and comfortable Eyes: EOMI, PERRLA ENNT External ears normal, Neck is supple, no masses, Respiratory systems: Clear to auscultation Cardiovascular S1, S2, normal rhythm, no murmur, rub, or gallop; no thrill or palpable murmurs on palpation. Gastrointestinal: soft, non-tender, and non-distended abdomen with no masses; BS present Skin: no rash, lesions, ulcerations, subcutaneous nodules or induration Musculoskeletal: no abnormality and no tenderness, normal ROM Neurologic: Alert and oriented x3, non focal Mental Status Exam: normal affect Objective Data Vital Signs Vital Signs: Vital Signs - 24 hr 04/22/24 15:04 04/22/24 16:00 04/22/24 21:37 Temperature 98.5 F 97.9 F Pulse Rate 71 68 59 L Respiratory Rate 20 20 Blood Pressure 175/72 H 174/84 H Pulse Oximetry 97 98 Oxygen Delivery 04/22/24 21:59 04/22/24 20:00 04/22/24 20:00 Temperature Pulse Rate 59 L 65 Respiratory Rate Blood Pressure Pulse Oximetry Oxygen Delivery Room Air 04/23/24 00:00 04/23/24 04:00 04/23/24 06:00 Temperature 97.4 F L Pulse Rate 62 56 L 58 L Respiratory Rate 16 Blood Pressure 153/66 H Pulse Oximetry 95 Oxygen Delivery 04/23/24 08:35 04/23/24 08:35 04/23/24 08:35 Temperature Pulse Rate 68 70 Respiratory Rate Blood Pressure Pulse Oximetry Oxygen Delivery Room Air Intake/Output Intake/Output: Intake & Output 04/20/24 04/21/24 04/22/24 04/23/24 23:59 23:59 23:59 23:59 Intake Total 680 900 Balance 680 900 Meds/Results Medications: Active Medications Generic Name Dose Route Start Last Admin Trade Name Freq PRN Reason Stop Dose Admin Albuterol 2 puff 04/22/24 18:43 Albuterol Sulfate (*Sp) Aerosol 1 Puff INHALATION QIDRT PRN Shortness Of Breath Amlodipine Besylate 10 mg 04/23/24 09:00 04/23/24 08:35 Amlodipine Besylate 10 Mg Tablet PO 10 mg DAILY MALI Administration Anastrozole 1 mg 04/22/24 09:00 04/23/24 08:35 Anastrozole (*Chemo) 1 Mg Tablet BY MOUTH 1 mg DAILY MALI Administration Hydralazine HCl 10 mg 04/21/24 17:55 04/23/24 08:35 Hydralazine 10 Mg Tablet PO 10 mg BID MALI Administration Labetalol HCl 200 mg 04/21/24 21:00 04/23/24 08:35 Labetalol Hcl 100 Mg Tablet PO 200 mg Q12HR MALI Administration Radiology Results: ITS Impressions Chest CTA 04/19/24 13:56 IMPRESSION: 1. No pulmonary embolism. Sensitivity is significantly decreased in the basilar segmental and subsegmental pulmonary arteries due to primarily to respiratory motion. 2. Large region of new groundglass opacity in the right upper lobe most likely related to pulmonary hemorrhage with differential including less likely pneumonia. 3. Unchanged right breast mass with slight interval progression in multiple scattered pulmonary nodules consistent with worsening metastatic disease. 4. Mild left hilar lymphadenopathy which could be reactive or metastatic. 5. Large sliding-type hiatal hernia containing the stomach, tail the pancreas and segment of the distal transverse colon. 6. Unchanged small pericardial effusion. Chest X-Ray 04/19/24 14:08 IMPRESSION: Right upper lobe atelectasis versus pneumonia. Follow-up advised. Large sliding hiatus hernia. Labs Labs: Laboratory Results - last 24 hr 04/23/24 05:26 WBC 6.5 RBC 3.75 L Hgb 11.0 L Hct 34.8 L MCV 92.8 MCH 29.3 MCHC 31.6 L RDW 14.0 Plt Count 163 MPV 10.0 Immature Gran % (Auto) 0.6 H Neut % (Auto) 60.4 Lymph % (Auto) 21.5 [place] % (Auto) 12.1 H Eos % (Auto) 4.8 H Baso % (Auto) 0.6 Lymph # (Auto) 1.39 [place] # (Auto) 0.8 H Eos # (Auto) 0.3 Baso # (Auto) 0.0 Abs Immat Gran (auto) 0.04 H Absolute Neuts (auto) 3.9 Absolute Nucleated RBC 0.000 Nucleated RBC % 0.0 Sodium 136 L Potassium 3.6 Chloride 105 Carbon Dioxide 25 Anion Gap 6 BUN 14 Creatinine 0.80 Estim Creat Clear Calc 47 Estimated GFR > 60 Glucose 108 Calcium 9.6 Magnesium 2.1 Total Bilirubin 0.5 AST 14 ALT 10 Alkaline Phosphatase 55 Total Protein 6.0 L Albumin 3.6
[2024-04-24] VITALS: PULSE 67
[2024-04-24 04:00] VITALS: PULSE 66
[2024-04-24 06:00] VITALS: BP 154/57; PULSE 62; RESP 18; TEMP 36.3; O2SAT 96
--- NOTE | 2024-04-24 06:08 | PC.NURSE ---
Attempt to call report to [facility], nurse states that the room and patient has not been assigned yet and will return call to get report.
[2024-04-24 06:40] LABS: Basophils Percent Auto 0.5 % (0.2-1.2); Eosinophils Absolute Auto 0.2 K/mm3 (0-0.3); Hematocrit 32.6 % (37.0-47.0); Hemoglobin 10.6 g/dL (12.0-15.0); Immature Granulocyte Absolute 0.03 K/mm3 (0.00-0.031); Immature Granulocyte Percent A 0.5 % (0-0.5); Mean Corpuscular HGB Conc 32.5 g/dl (32-36); Mean Corpuscular Hemoglobin 29.9 pg (26-34); Mean Corpuscular Volume 92.1 fl (80-100); Mean Platelet Volume 9.8 fl (7.4-10.4); Monocytes Absolute Auto 0.7 K/mm3 (0.1-0.6); Monocytes Percent Auto 11.2 % (2.6-8.5); Neutrophils Absolute Auto 3.8 K/mm3 (1.3-6.7); Neutrophils Percent Auto 64.8 % (45.5-73.1); Platelet Count Result 176 k/mm3 (150-375); Red Blood Count 3.54 M/mm3 (4.2-5.4); White Blood Count 5.8 K/mm3 (4.5-10.0)
[2024-04-24 06:58] LABS: Alanine Aminotransferase 11 U/L (6-35); Albumin Level 3.6 g/dL (3.5-5.1); Alkaline Phosphatase 55 U/L (38-126); Anion Gap 9 mmol/L (4-12); Aspartate Amino Transferase 14 U/L (14-36); Bilirubin,Total 0.5 mg/dL (0.2-1.3); Blood Urea Nitrogen 17 mg/dL (7-17); Calcium 9.4 mg/dL (8.4-10.2); Carbon Dioxide 25 mmol/L (22-30); Chloride 103 mmol/L (98-107); Estimated CRCL calculation 42 ml/min; Estimated Glomerular Filt Rate 59; Glucose 133 mg/dL (65-110); Magnesium 2.1 mg/dL (1.6-2.3); Potassium 3.6 mmol/L (3.4-5.0); Sodium 137 mmol/L (137-145)
--- NOTE | 2024-04-24 10:17 | P.TS_ITS ---
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: Code(s): C50.911 - Malignant neoplasm of unspecified site of right female breast Status: Acute Transfer Discharge Sum: Med Medications Active and Home Medications: Home Medications calcium 600 mg (as carbonate)-vit D3 10 mcg (400 unit) chewable tablet (Calcium 600 with Vitamin D3) 1 tablet PO DAILY 09/04/20 [History Confirmed 04/22/24] cholecalciferol (vitamin D3) 50 mcg (2,000 unit) capsule 50 mcg PO DAILY 09/04/20 [History Confirmed 04/22/24] aspirin 325 mg tablet 325 mg PO DAILY #30 tabs 01/27/21 [Rx Confirmed 04/22/24] albuterol sulfate 90 mcg/actuation aerosol inhaler (Proventil HFA) 2 puff inhalation QIDRT PRN Shortness Of Breath #3 device 01/23/22 [Rx Confirmed ] anastrozole 1 mg tablet 1 mg PO DAILY 01/27/23 [History Confirmed 04/22/24] hydralazine 10 mg tablet 10 mg PO BID #180 tabs 08/02/23 [Rx Confirmed 04/22/24] amlodipine 10 mg tablet 10 mg PO DAILY #90 tabs 02/01/24 [Rx Confirmed 04/22/24] labetalol 200 mg tablet 200 mg PO Q12H #180 tabs 02/25/24 [Rx Confirmed 04/22/24] Adult Nutritional Supplement 1 mg PO DAILY Tumeric Supplement 04/22/24 [History Confirmed 04/22/24] Adult Probiotic 1 mg PO DAILY 04/22/24 [History Confirmed 04/22/24] Transfer Discharge Sum: Hosp Hospital Course Hospital course: 88-year-old female past medical history of right breast cancer, hypertension history of pulmonary embolism presented to the ER control for coughing up blood. Patient reported she has been coughing up bright red blood the past 10 days prior to presentation. However denies any chest pain no shortness of breath no fever no vomiting abdominal pain no diarrhea no dysuria no focal symptoms no chest trauma. Patient reported she was diagnosed of breast cancer and initially was treated and placed on anastrozole. Reported that after she had COVID in 2019 she was taken off anastrozole which she has taken for 10 years at a time and eventually 1 in 2021 she had a lumpectomy for breast lesion that showed the recurrence of breast cancer. She was placed on anastrozole and monitor by her oncologist. ER evaluation notable for blood pressure 175/72, labs unremarkable. CT chest showed no pulmonary embolism margin of new blood gas opacity in the right open wound likely related to pulmonary hemorrhage differentials less likely pneumonia. Also showed unchanged right breast mass with slight interval progression in multiple scattered pulmonary nodules consistent with worsening metastatic disease. Mild left hilar lymphadenopathy which could be reactive or metastatic. Patient was admitted however she is pending transfer to [facility]. 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 Symptoms has ambulated at this time Continue monitoring Patient pending transfer to [facility] Metastatic breast cancer Patient had initial breast cancer was treated and she was placed on anastrozole, had a recurrence in 2021 does manage with anastrozole Mild CT abdomen shows the progression with metastasis to the lungs. Awaiting transfer to [facility]. Continue anastrozole. History of right malignant Completed 1 year of anticoagulation Monitor. Hypertension Continue home medications. Time Spent with Patient Time attestation: Total time spent providing and/or coordinating transfer services: DS: Data Data Completed and Pending Labs on day of discharge: Labs from last 24 hours 04/24/24 06:20 WBC 5.8 RBC 3.54 L Hgb 10.6 L Hct 32.6 L MCV 92.1 MCH 29.9 MCHC 32.5 RDW 14.0 Plt Count 176 MPV 9.8 Immature Gran % (Auto) 0.5 Neut % (Auto) 64.8 Lymph % (Auto) 19.0 [place] % (Auto) 11.2 H Eos % (Auto) 4.0 Baso % (Auto) 0.5 Lymph # (Auto) 1.10 [place] # (Auto) 0.7 H Eos # (Auto) 0.2 Baso # (Auto) 0.0 Abs Immat Gran (auto) 0.03 Absolute Neuts (auto) 3.8 Absolute Nucleated RBC 0.000 Nucleated RBC % 0.0 Sodium 137 Potassium 3.6 Chloride 103 Carbon Dioxide 25 Anion Gap 9 BUN 17 Creatinine 0.90 Estim Creat Clear Calc 42 Estimated GFR 59 Glucose 133 H Calcium 9.4 Magnesium 2.1 Total Bilirubin 0.5 AST 14 ALT 11 Alkaline Phosphatase 55 Total Protein 6.0 L Albumin 3.6 Additional Comments Additional comments: Stable on transfer
== END 2024-04-24 07:48 | disposition short-term general hospital (02) | DRG 181 ==
LOC: ANHED 04-20 03:49 → ANH3MED 04-22 08:14
PROVIDERS: Physician Assistant; Admitting Provider Internal Medicine; Emergency Provider Emergency Medicine; PCP Family Medicine; Visit Provider Internal Medicine
DX: C78.00 Secondary malignant neoplasm of unspecified lung (principal); R04.2 Hemoptysis; C50.911 Malignant neoplasm of unspecified site of right female breast; I10 Essential (primary) hypertension; D64.9 Anemia, unspecified; M85.80 Other specified disorders of bone density and structure, unspecified site; Z86.711 Personal history of pulmonary embolism; Z79.82 Long term (current) use of aspirin
CPT/HCPCS: 36415; 71046; 71275; 80053; 83735; 83880; 85014; 85018; 85025; 85610; 85730; 86850; 86900; 86901; 87637; 93005; 99285; A9270; G0378; Q9967